=== PATIENT | male | born 1960 | race Caucasian/White ===

== ENCOUNTER → 2017-08-30 | Outpatient (CLI) | payer MEDICAID ==
[~2017-08-30] MED LIST: IOPAMIDOL (ISOVUE-300) 100 ML BTL ONE
== END ==
LOC: FIMAGING 15:43
PROVIDERS: ATTEND Nurse Practitioner
DX: R10.9 Unspecified abdominal pain (principal); B20 Human immunodeficiency virus [HIV] disease; R63.4 Abnormal weight loss; R93.3 Abnormal findings on diagnostic imaging of other parts of digestive tract
CPT/HCPCS: Q9967

== ENCOUNTER 2017-09-28 10:07 | Inpatient (IN) | payer MEDICAID ==
--- NOTE | 2017-09-28 10:14 | EDPHY ---
H & P Time Seen by Provider: 09/28/17 10:12 Constitutional: Initial Vital Signs Temperature (C) 36.3 C 09/28/17 10:11 Heart Rate 97 09/28/17 10:11 Respiratory Rate 18 09/28/17 10:11 Blood Pressure 96/82 H 09/28/17 10:11 O2 Sat (%) 95 09/28/17 10:11 O2 Delivery Mode Room Air Allergies/Adverse Reactions: No Known Allergies Allergy (Unverified 09/28/17 10:09) Home Medications: Medication Instructions Recorded Azithromycin 09/28/17 Bactrim DS 09/28/17 Biktarvy 50-200-25 mg Tablet 09/28/17 Descovy 200-25 mg Tablet 09/28/17 Tivicay 09/28/17 VALCYTE 09/28/17 Medical Decision Making - Diagnostics Imaging: Discussed imaging studies w/ call manager Radiologist, I viewed and interpreted images myself ED Course/Re-evaluation: CHIEF COMPLAINT: Abdominal pain HISTORY OF PRESENT ILLNESS: The patient is a 56 y/o male with a history of AIDS complaining of abdominal pain, constipation, and a decreased appetite. He was seen by Dr. 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 His last CD4 was 4 and his viral load was 500,000+. Dr. Kamara would like to have this patient admitted for failure to thrive. Denies chest pain, shortness of breath, numbness, paresthesias. REVIEW OF SYSTEMS: A 10 point review of systems was performed and is negative with the exception of the elements mentioned in the history of present illness. PHYSICAL EXAM: HR, BP, O2 Sat, RR. Temp noted General Appearance: Cachectic, emaciated, alert, well hydrated, appropriate, and non-toxic appearing. Head: Atraumatic without scalp tenderness or obvious injury Eyes: Pupils equal, round, reactive to light and accommodation, EOMI, no trauma , no injection. Ears: Clear bilaterally, no perforation, normal landmarks Nose: Atraumatic, no rhinorrhea, clear. Throat: There is no erythema or exudates, no lesions, normal tonsils, mucus membranes moist. Neck: Supple, nontender, no lymphadenopathy. Respiratory: No retractions, no distress, no wheezes, and no accessory muscle use. Lungs are clear to auscultation bilaterally. Cardiovascular: Regular rate and rhythm, no murmurs, rubs, or gallops. Bilateral carotid, radial, dorsalis pedis, and posterior tibial pulses intact. Good capillary refill all extremities. Gastrointestinal: Right lower quadrant abdominal tenderness to palpation. Abdomen is soft, non-distended, no masses, no rebound, no guarding, no peritoneal signs. Musculoskeletal: Normal active ROM of all extremities, atraumatic. Neurological: Alert, appropriate, and interactive. Non-focal neuro. Skin: No rashes, good turgor, no nodules on palpation. Past medical history: AIDS, HIV, abdominal cancer Past surgical history: Denies Family history: Denies Social history: Life partner at bedside, lives in [place], not employed DIAGNOSTICS/PROCEDURES/CRITICAL CARE TIME: Abdominopelvic CT: Terminal ileum looks less inflamed. More mesenteric lymph nodes. Appendix is normal. DIFFERENTIAL DIAGNOSIS: The differential diagnosis for the patient's abdominal pain included but was not limited to CMV ileitis, end-stage AIDS, appendicitis, cholecystitis, hernias , testicular torsion, gastritis, and urinary tract infection. MEDICAL DECISION MAKING: The patient is a 56 y/o male with a history of AIDS presenting with abdominal pain, constipation, and a decreased appetite. On exam he is cachectic, emaciated , and has right lower quadrant abdominal tenderness to palpation. Labs and abdominopelvic CT ordered. 1L IV NS, 4mg IV Zofran, and 1mg IV Dilaudid administered. 1010: Consulted with Dr. Kamara, infectious disease, regarding this patient. 1123: Patient's alk phos is 583, which is down from 936 on 09/21/17, one week ago. 1235: Spoke with hospitalist service, Dr. Arciniega accepts admission of this patient CMV, AIDS, and failure to thrive. 1240: Reassessed patient and discussed plan for admission; he is comfortable with this plan. 1319: Spoke with Dr. Walters, the patient's terminal ileum looks less inflamed, but there are more mesenteric lymph nodes. - Data Points Laboratory Results: Laboratory Results 09/28/17 10:30 09/28/17 10:30 09/28/17 09/28/17 09/28/17 10:30 10:30 10:30 WBC 3.70 10^3/uL L 10^3/uL (3.80-9.50) RBC 3.52 10^6/uL L 10^6/uL (4.40-6.38) Hgb 10.0 g/dL L g/dL (13.7-17.5) Hct 30.5 % L % (40.0-51.0) MCV 86.6 fL fL (81.5-99.8) MCH 28.4 pg pg (27.9-34.1) MCHC 32.8 g/dL g/dL (32.4-36.7) RDW 17.4 % H % (11.5-15.2) Plt Count 400 10^3/uL 10^3/uL (150-400) MPV 9.1 fL fL (8.7-11.7) Neut % (Auto) 86.3 % H % (39.3-74.2) Lymph % (Auto) 8.6 % L % (15.0-45.0) Kleberg % (Auto) 2.4 % L % (4.5-13.0) Eos % (Auto) 0.3 % L % (0.6-7.6) Baso % (Auto) 0.5 % % (0.3-1.7) Nucleat RBC Rel Count 0.0 % % (0.0-0.2) Absolute Neuts (auto) 3.19 10^3/uL 10^3/uL (1.70-6.50) Absolute Lymphs (auto) 0.32 10^3/uL L 10^3/uL (1.00-3.00) Absolute Monos (auto) 0.09 10^3/uL L 10^3/uL (0.30-0.80) Absolute Eos (auto) 0.01 10^3/uL L 10^3/uL (0.03-0.40) Absolute Basos (auto) 0.02 10^3/uL 10^3/uL (0.02-0.10) Absolute Nucleated RBC 0.00 10^3/uL 10^3/uL (0-0.01) Immature Gran % 1.9 % H % (0.0-1.1) Immature Gran # 0.07 10^3/uL 10^3/uL (0.00-0.10) RBC/WBC/PLT Morphology TNP Platelet Estimate TNP PT 14.3 SEC SEC (12.0-15.0) INR 1.09 (0.83-1.16) APTT 36.3 SEC SEC (23.0-38.0) Sodium 130 mEq/L L mEq/L (135-145) Potassium 4.4 mEq/L mEq/L (3.3-5.0) Chloride 97 mEq/L mEq/L (97-110) Carbon Dioxide 22 mEq/l mEq/l (22-31) Anion Gap 11 mEq/L mEq/L (8-16) BUN 19 mg/dL mg/dL (7-23) Creatinine 0.7 mg/dL mg/dL (0.7-1.3) Estimated GFR > 60 Glucose 76 mg/dL mg/dL (70-100) Calcium 8.6 mg/dL mg/dL (8.5-10.4) Total Bilirubin 0.5 mg/dL mg/dL (0.1-1.4) Conjugated Bilirubin 0.3 mg/dL mg/dL (0.0-0.5) Unconjugated Bilirubin 0.2 mg/dL mg/dL (0.0-1.1) AST 55 IU/L IU/L (17-59) ALT 57 IU/L IU/L (21-72) Alkaline Phosphatase 583 IU/L H IU/L (38-126) Total Protein 7.2 g/dL g/dL (6.3-8.2) Albumin 3.1 g/dL L g/dL (3.5-5.0) Amylase 71 IU/L IU/L (30-110) Lipase 185 IU/L IU/L (23-300) Medications Given: Discontinued Medications Diatrizoate Meglum/Diatrizoate Sod (Gastroview 66-10 Soln) 30 ml PO EDNOW ONE Stop: 09/28/17 10:20 Last Admin: 09/28/17 11:23 Dose: 30 ml Hydromorphone HCl (Dilaudid) 1 mg IVP EDNOW ONE Stop: 09/28/17 10:39 Last Admin: 09/28/17 10:39 Dose: 1 mg Sodium Chloride (Ns) 1,000 mls @ 0 mls/hr IV EDNOW ONE; Wide Open PRN Reason: Protocol Stop: 09/28/17 10:20 Last Admin: 09/28/17 10:37 Dose: 1,000 mls Ondansetron HCl (Zofran) 4 mg IVP EDNOW ONE Stop: 09/28/17 10:20 Last Admin: 09/28/17 10:37 Dose: 4 mg Departure - Departure Disposition: [facility] In[facility] Acute Clinical Impression: Failure to thrive in adult, AIDS Abdominal pain Qualifiers: Abdominal location: right lower quadrant Qualified Code(s): R10.31 - Right lower quadrant pain CMV (cytomegalovirus) Qualifiers: Cytomegaloviral disease type: other disease Qualified Code(s): B25.8 - Other cytomegaloviral diseases Condition: Fair Referrals: Marley Kamara MD [Primary Care Provider] - As per Instructions Report Scribed for: Morgan Turpin Report Scribed by: Shahnaz Lindo Date of Report: 09/28/17 Time of Report: 10:17
[2017-09-28] MEDS ORDERED: NS 1,000 ML IV ONE (10:19)
[2017-09-28] MEDS ORDERED: ONDANSETRON 4 MG/2 ML VIAL IVP ONE (10:19)
[2017-09-28] MEDS ORDERED: GASTROVIEW 30 ML UNIT PO ONE (10:19)
[2017-09-28] MEDS ORDERED: HYDROmorphONE/DILAUDID 1 MG/ML INJ ONE (10:26)
[2017-09-28] MEDS ORDERED: HYDROmorphONE/DILAUDID 1 MG/ML INJ IVP ONE (10:38)
[2017-09-28 10:48] LABS: PLATELET COUNT 400 10^3/uL (150-400)
[2017-09-28 10:56] LABS: INR 1.09 (0.83-1.16); PROTIME(PATIENT) 14.3 SEC (12.0-15.0)
[2017-09-28] MEDS ORDERED: IOPAMIDOL (ISOVUE-300) 100 ML BTL ONE (12:46)
[2017-09-28] MEDS ORDERED: NS 1,000 ML IV SCH (14:15)
[2017-09-28] MEDS ORDERED: ONDANSETRON DISINTEGRATING 4 MG TAB PO PRN (14:15)
[2017-09-28] MEDS ORDERED: ACETAMINOPHEN 325 MG TAB PO PRN (14:16)
[2017-09-28] MEDS ORDERED: CARBOXYMETHYLCELLULOSE 1% 0.4 ML DROPERETTE EACHEYE PRN (14:17)
[2017-09-28] MEDS ORDERED: NON-FORMULARY NEW DRUG (Emtricitabine/Tenofov Alafenam [Descovy 200-25 Mg Tablet] 1 EACH) PO SCH (14:30)
[2017-09-28] MEDS ORDERED: NON-FORMULARY NEW DRUG (Dolutegravir Sodium [Tivicay] 50 MG) PO SCH (14:30)
[2017-09-28] MEDS ORDERED: [UNRECOGNIZED DRUG - OTHER] PO SCH (14:30)
--- NOTE | 2017-09-28 15:04 | GHP ---
[f rep st] HISTORY AND PHYSICAL DATE OF ADMISSION: 09/28/2017 CHIEF COMPLAINT: Sent in by infectious disease doctor. HISTORY OF PRESENT ILLNESS: A 56-year-old man who with a recent diagnosis of AIDS, as well as CMV il eitis. He was diagnosed after having about a 6 months history of significant abdominal pain. On chevy gnosis, his CD4 count was 4 and his viral load was over 500,000. Given his abdominal pain, he underw ent a colonoscopy. He had pathology proven CMV colitis. He was started on Valcyte. He tells me he has had significant severe ongoing abdominal pain that is only now recently relieved on IV Dilaudid. He has lost about 40 pounds recently. He has had some fevers. He has no other neurologic symptoms, including numbness or focal weakness. He has been intermittently constipated and then had diarrhea. PAST MEDICAL/SURGICAL HISTORY: 1. HIV/AIDS. 2. CMV colitis. MEDICATIONS: Please see medication reconciliation. ALLERGIES: No known drug allergies. SOCIAL HISTORY: He is lives with his partner in [place]. He has never used IV drugs. FAMILY HISTORY: His father had pancreatic cancer. REVIEW OF SYSTEMS: A 10-point review of systems is conducted and is negative, except per HPI. PHYSICAL EXAMINATION: VITAL SIGNS: Blood pressure is 98/65, heart rate 85, respiration rate 16, sat urating 99% on room air, temperature 36.3. GENERAL: The patient is a pleasant man who is resting co mfortably, in no acute distress. HEENT: Shows him to be normocephalic, atraumatic. He has temporal wasting. CARDIOVASCULAR: Shows him to be a regular rate and rhythm. No murmurs, rubs, or gallops. PULMONARY: Shows lungs clear to auscultation bilaterally. ABDOMEN: Soft. He has normal bowel so unds. He is at this point mildly tender to palpation with no guarding or rebound. He is most tender to palpation of the right lower quadrant. SKIN: No rash. : Shows no Demarco. NEUROLOGIC: Shows him to be alert and oriented x3. He has a nonfocal neurologic exam. PSYCHIATRIC: Shows him to hav e a normal mood and affect. LABORATORY DATA: White count is 3.7, hemoglobin 10, platelets 400. INR is 1.0. Sodium is 130, amberly line phosphatase is 583. DATA: 1. Discussed this with Dr. Kamara. Will admit to med/surg. 2. Abdominal CT, which I reviewed shows slight improvement in terminal ileitis. He does have signif icant mesenteric and periaortic lymphadenopathy. IMPRESSION/PLAN: 1. New diagnosis of acquired immune deficiency syndrome with cytomegalovirus colitis/terminal ileiti s: He has lost significant amount of weight. He is not able to take care of himself very well at [facility]. Dr. Kamara will consult. He is getting Valcyte 900 mg p.o. twice daily. We will control his filiberto n with Dilaudid intravenous, as well as p.o. options. We will give him a second liter of normal sali ne. We will follow very closely for improvement on this regimen. 2. Acquired immune deficiency syndrome/human immunodeficiency virus: He is currently on antiretrovi rals by Dr. Kamara. Given his low CD4 count, he is on Bactrim. Dr. Kamara has ordered a screening MRI of his brain. She has drawn any other cultures as well. 3. Retroperitoneal and periaortic lymphadenopathy: Differential is broad in the patient who is quit e amino compromise. Agree with serologies as drawn by Dr. Kamara. 4. Failure to thrive: Due to the above. Not safe to take care of himself at home at this point. 5. Venous thromboembolism risk: He is moderate. I have written for Lovenox. /[id number]/MODL
[2017-09-28] MEDS ORDERED: TENOFOV ALAFENAM PO SCH (15:30)
[2017-09-28] MEDS ORDERED: [UNRECOGNIZED DRUG - OTHER] PO SCH (15:30)
[2017-09-28] MEDS ORDERED: EMTRICITABINE PO SCH (15:30)
[2017-09-28] MEDS ORDERED: (Dolutegravir Sodium [Tivicay] 50 MG) PO SCH (15:30)
--- NOTE | 2017-09-28 15:39 | GCON ---
[f rep st] CONSULTATION INFECTIOUS DISEASE CONSULT DATE OF CONSULTATION: 09/28/2017 REFERRING PHYSICIAN: Terence Arciniega MD REASON FOR CONSULT: To assist in the management of this 56-year-old patient well known to our clinic with end-stage AIDS and CMV terminal ileitis, admitted for failure to thrive. HISTORY OF PRESENT ILLNESS: Mr. Montanez is a 56-year-old male whose previous medical history is notable for the followin. End-stage AIDS: The patient presented to our outpatient clinic at the end of July with a recent diagnosis of HIV. His T-cell count was 4 (2%) with a viral load of 516,000 copies. Unfortunately, the patient had no health insurance of any sort, and it took almost a month for him to finally get Medicaid so we could proceed with an evaluation and workup. At the time, the patient was complaining of significant abdominal pain. Ultimately, he was diagnosed with CMV terminal ileitis. Please see below. 2. CMV terminal ileitis: The patient had a CT scan of his abdomen and pelvis in late August that showed terminal ileitis and inflammation of the terminal ileum and cecum. He underwent a colonoscopy on 09/02/2017 that showed multiple ulcers with heaped up borders. Pathology was consistent with CMV, and the AFB stain was negative for mycobacterium. There were no granulomas seen. HSV stain was also negative. The patient prior to the colonoscopy, out of high clinical suspicion, was started on empiric valganciclovir 900 mg twice daily for treatment, as well as antiretrovirals in the form of Descovy and dolutegravir. 3. Tobacco abuse. 4. Anemia: [place] secondary to anemia of chronic disease. 5. Chronic hepatitis B: 6. The patient had a low level viremia with 60 copies and 28 copies. This was discussed with a hepatitis B expert at [facility], who felt this represented active disease. The patient is on treatment in the form of Descovy. His recent hepatitis B viral load on therapy was undetectable. In so far as his present issues are concerned, the patient has had a hanna road over the past few weeks. The patient lives in [place] with his partner, who takes care of him. His partner works multimedia producer, and has really been unable to care for him of late. The patient has multiple needs, as he cannot make his own meals, and unfortunately he has been losing weight recently. He denies fevers, shaking chills, nausea or vomiting. He has been constipated. He has been anorectic as well. He also complains of persistent abdominal discomfort in his lower abdomen, both sides, both sides. Again, the patient denies drenching night sweats, or fever. The patient presented to our outpatient clinic this morning with failure to thrive, and his partner said "I just can't take care of him right now." Because of this, the patient was brought to the emergency room for further evaluation and treatment of failure to thrive. In the emergency room, the patient's labs actually showed improvement, with a CBC showing a white count of 3.7, stable hematocrit of 30, and platelet count of 400. His CMP showed stable hyponatremia with a sodium of 130, stable kidney function and liver function tests showing an improvement in recently elevated alkaline phosphatase. His albumin had also improved from 2.8 to 3.1. His alkaline phosphatase was 926 last week, presently is 583. Also of note, the patient's immune system is responding to the antiretrovirals, with a T-cell count last week of 32, but percentage that has had a significant increase, from 2% to 20%. His viral load also plummeted from over 500,000 copies to 6027 copies. PREVIOUS MEDICAL HISTORY: As outlined above. ALLERGIES: No known drug allergies. MEDICATIONS: Presently include: 1. Valganciclovir 450 mg tablet 2 tabs p.o. twice daily. The patient has been on this now for approximately 4 weeks. 2. Descovy 1 tab p.o. daily. 3. Dolutegravir 50 mg daily. 4. Bactrim DS 1 tab p.o. every Wednesday, Wednesday, Wednesday. 5. I believe he was taking azithromycin 600 mg 2 tabs p.o. weekly. SOCIAL HISTORY: The patient has a very supportive . He is a heavy smoker. No alcohol or illicit substances. Occasional medical marijuana in the form of edibles. They live in [place]. He is presently unemployed, but previously worked in a hotel. FAMILY HISTORY: Unremarkable. PHYSICAL EXAM: T-current is 36.3, heart rate of 85, blood pressure 98/65, 99% on room air. GENERAL: Cachectic male, nontoxic, lying in bed, no apparent distress. Looks tired. HEENT: Atraumatic, normocephalic. Temporal wasting bilaterally. Pupils equal, round, reactive to light. Extraocular movements are intact. No conjunctival injection. No icterus or petechiae. Mucous membranes moist. No oral lesions noted with the exception of very mild thrush in his buccal mucosa, posteriorly. No other oral lesions noted. Dentition in fair repair. No cervical or supraclavicular adenopathy. CARDIOVASCULAR: S1, S2. No rubs, gallops, or murmurs. LUNGS: Clear to auscultation bilaterally with no rales, rhonchi, or wheezes. ABDOMEN: Scaphoid. Hypoactive bowel sounds. Tenderness to palpation diffusely, but most prominent in the lower quadrants, right and left. EXTREMITIES: No evidence of arthritis. No clubbing , cyanosis, or edema. He is well perfused. SKIN: No obvious rashes or lesions noted. NEUROLOGIC: He is alert and oriented x3. He is moving all 4 extremities. No sensory deficits. LABORATORY DATA: As outlined above. MICROBIOLOGIC DATA: AFB blood culture on August 09 negative. Urine histoplasmosis antigen negative. Serum cryptococcal antigen negative. Coccidioides antibody negative on August 09. CMV PCR positive at 14,700 copies on August 09. IMAGING DATA: CT scan of the abdomen and pelvis done today compared with CT scan of the abdomen and pelvis done in August shows ongoing inflammation of the terminal ileum, but no evidence of perforation. There are multiple new retroperitoneal, paraaortic, and mesenteric lymph nodes that are markedly enlarged since the previous study. The biliary system looks fine. IMPRESSION: 56-year-old male with end-stage AIDS and recent diagnosis of cytomegalovirus terminal ileitis, now admitted for failure to thrive. Notably, Cipriano needs more care and attention (meals made for him, help with ADL's) that his partner just cannot provide at this time. The patient does have new and extensive mesenteric and paraaortic adenopathy on CT scan compared with 1 month prior, but I am hoping this is not a harbinger for a new opportunistic infection, such as JOAN. Lymphoma seems less likely, but is still plausible. Differential diagnosis also includes immune reconstitution inflammatory syndrome from recent initiation of antiretrovirals. Thankfully, the patient is afebrile and clinically stable. Please see below for plan. PLAN: 1. HIV/AIDS: Continue antiretrovirals in the form of Descovy and Dolutegravir. These medications should be given together and cation binders such as Tums, Gaviscon, and multivitamins should be avoided if possible. If Tums is necessary, it should be given either 2 hours before or 6 hours after his antiretrovirals. Recent immunologic parameters showed significant drop in viral load and increase in Cd4 percentage. 2. CMV terminal ileitis without evidence of retinitis: Repeat CMV PCR has been ordered. Continue Valcyte 900 mg p.o. twice daily for now. Bone marrow appears stable on this medication. 3. Chronic hepatitis B: On therapy in the form of Descovy. Follow up HBV DNA negative on treatment. 4. Prophylaxis: Hold Azithromycin for now given concern for possible dMAC. Repeat JOAN blood cx' s have been sent. Continue Bactrim DS daily for PJP prophylaxis. Will follow potassium on Bactrim, as the patient recently had an episode of hyperkalemia that was felt possibly related to Bactrim. 5. Weakness/failure to thrive: Obtain nutrition and PT evaluation. The patient may need to be placed in a senior care facility such as [facility] temporarily until he can get his strength back and the patient is agreeable to this. We will ask Social Work to evaluate. Will also order head MRI for completeness sake, given end-stage AIDS and reported question of confusion by his partner in the past, although the patient is absolutely not confused presently. 6. Hyponatremia: Suspect hypovolemic hyponatremia. Appreciate hospitalist's assistance. Check am cortisol. 7. Intra-abdominal LAD: Repeat serum CRAG, urine histoplasmosis antigen, cocci ab and MAC blood cx's. Continue to follow. Hopefully will not require biopsy of these nodes,but still may. 8. Elevated alkaline phosphatase: This is improving. MAC remains a concern in the back of my mind as outlined above, particularly with the extensive abdominal lymphadenopathy. If the patient becomes febrile or has worsening abdominal discomfort, consider abdominal lymph node biopsy. Blood cultures for JOAN have been sent. Doubt AIDS cholangiopathy in the setting of normal-appearing biliary ducts. Thank you very much for consulting Infectious Disease. We will continue to follow this patient with you. /[id number]/MODL MTDD
--- NOTE | 2017-09-28 15:46 | PDMN ---
Medical Necessity Medical necessity: est los>2mn for ongoing abd pain r/t CMV colitis, retroperitoneal & periaortic lymphadenopathy and FTT; admit for pain control w/ IV dilaudid, ID consult; recent dx AIDS/HIV and 40 lb wt loss; per order and H& P 09/28/17
--- NOTE | 2017-09-28 15:50 | ASMTCASEMG ---
Living Arrangements What is your living Answers: With Partner arrangement? Who do you live with? Type Of Residence What kind of residence do Answers: House you live in? Discharge Plan Comments Coordination Status Comments Notes: Pt is a 56 y/o man sent in by an infectious disease doctor. Pt was recently diagnosis with AIDS. PT echols been ordered and awaiting recommendations. Needs are TBD at this time. CM to follow. Plan: TBD Date Signed: 09/28/2017 03:50 PM Electronically Signed By:JOHN Wen
[2017-09-28] MEDS: TENOFOV ALAFENAM PO SCH (16:53)
[2017-09-28] MEDS: EMTRICITABINE PO SCH (16:53)
[2017-09-28] MEDS: (Dolutegravir Sodium [Tivicay] 50 MG) PO SCH (16:54)
[2017-09-28] MEDS ORDERED: PNEUMOCOCCAL 0.5ML VACCINE VIAL IM ONE (17:00)
[2017-09-28] MEDS: NYSTATIN SUSP 500000 UNIT/5 ML UDCUP PO SCH ×2 (17:21→20:37)
[2017-09-28] MEDS: HYDROmorphONE/DILAUDID 1 MG/ML INJ IVP PRN (18:36)
[2017-09-29] MEDS: NYSTATIN SUSP 500000 UNIT/5 ML UDCUP PO SCH ×4 (05:50→20:21)
[2017-09-29] MEDS ORDERED: GADOBUTROL 10 ML VIAL IVP ONE (07:00)
[2017-09-29] MEDS ORDERED: ENOXAPARIN 40 MG/0.4 ML SYR SC SCH (09:00)
[2017-09-29] MEDS: HYDROCODONE/APAP 5/325 TAB PO PRN ×2 (09:05→15:37)
[2017-09-29] MEDS: VITAMIN B COMPLEX 1 EA CAP/TAB PO SCH (09:06)
[2017-09-29] MEDS: CHOLECALCIFEROL VIT D3 2,000 UNITS TAB/CAP PO SCH (09:06)
[2017-09-29] MEDS: SULFAMETHOX/TMP 800/160 MG 1 TAB PO SCH (09:06)
[2017-09-29] MEDS: (Dolutegravir Sodium [Tivicay] 50 MG) PO SCH (09:07)
[2017-09-29] MEDS: TENOFOV ALAFENAM PO SCH (09:07)
[2017-09-29] MEDS: EMTRICITABINE PO SCH (09:07)
--- NOTE | 2017-09-29 11:56 | PCMIDPN ---
Assessment/Plan: #CMV terminal ileitis proven on colonoscopy --CMV PCR pending --continue valganciclovir : ANC okay @6300, Cr okay #AIDS: big jump in CD4 % since started ARV --Continue Descovy, dolutegravir, big jump in CD4 % --on ppx with Bactrim --holding azithro for now due to concern of dMAC # Fever, mesenteric LAD: cocci, histo serologies, AFB blood cultures pending. Also could consider lymphoma or IRIS to CMV or undiagnosed dMAC # c/o Melena, dysphagia, drop in Hgb: hospitalist to call GI, query upper tract disease # Thrush: on PO nystatin s/s # Massive weight loss: likely multifactorial, CMV, AIDS. Also concern for upper GI track disease as above # HypoNa: hospitalist to manage, poor PO intake of food, drinks a lot of water # Memory difficulties: MRI brain without focal abn # HBV: on TAF/FTC (Descovy), VL undetectable now Medications 3 Generic Name Dose Route Start Last Admin Trade Name Freq PRN Reason Stop Dose Admin Trimethoprim/Sulfamethoxazole 1 ea 09/29/17 09:00 09/29/17 09:06 Bactrim Ds PO 10/29/17 08:59 1 ea DAILY THADDEUS Protocol Valganciclovir 900 mg 09/28/17 21:00 09/29/17 09:07 Valcyte PO 10/28/17 20:59 900 mg BID THADDEUS Subjective: c/o black sticky stools but has relatively infrequent BMs RLQ abdominal pain stable c/o "orange" urine Objective: Vital Signs Temp Pulse Resp BP Pulse Ox 36.6 C 80 16 102/68 98 09/29/17 11:01 09/29/17 11:01 09/29/17 11:01 09/29/17 11:01 09/29/17 11:01 Microbiology 09/28/17 17:25 Mycobacterial Smear (FRANK) - Final Blood 09/28/17 09/29/17 09/30/17 05:59 05:59 05:59 Intake Total 1200 780 Output Total 745 100 Balance 455 680 Laboratory Tests 09/28/17 09/28/17 09/29/17 10:30 10:30 12:15 WBC 3.70 L 7.61 Hct 30.5 L 25.1 L Plt Count 400 381 Sodium 130 L Creatinine 09/29/17 12:20 WBC Hct Plt Count Sodium 129 L Creatinine 0.7 - Physical Exam General Appearance: cachetic EENT: pale conjunctiva, No scleral icterus, No thrush Respiratory: chest non-tender, No accessory muscle use Cardiac/Chest: regular rate, rhythm Extremities: other (muscle wasting), No pedal edema Abdomen: normal bowel sounds, non-tender, soft, other (mild discomfort to deep palpation RLQ) Skin: No rash Neuro/Psych: alert, normal mood/affect, oriented x 3 - Time Spent With Patient Time Spent with Patient: greater than 35 minutes (care coordinated with Dr. Arciniega and nursing) Time Spent with Patient: Greater than 35 minutes spent on this patients care, greater than 50% of time spent counseling, educating, and coordinating care regarding the above mentioned plan. ICD10 Worksheet Patient Problems: Problems Problem Status Onset AIDS Acute Abdominal pain Acute CMV (cytomegalovirus) Acute Failure to thrive in adult Acute
--- NOTE | 2017-09-29 12:00 | HOSPPROG ---
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 # SPCM - cont nutrition support # deconditioning - PT/OT Subjective: feels stronger today; working with PT and OT Objective: Vital Signs Temp Pulse Resp BP Pulse Ox 36.6 C 80 16 102/68 98 09/29/17 11:01 09/29/17 11:01 09/29/17 11:01 09/29/17 11:01 09/29/17 11:01 Microbiology 09/28/17 17:25 Mycobacterial Smear (FRANK) - Final Blood 09/28/17 09/29/17 09/30/17 05:59 05:59 05:59 Intake Total 1200 780 Output Total 745 100 Balance 455 680 PT 14.3 SEC (12.0-15.0) 09/28/17 10:30 INR 1.09 (0.83-1.16) 09/28/17 10:30 high risk with AIDS and fever - Physical Exam Constitutional: cachectic Cardiovascular: regular rate and rhythym, no murmur, rub, or gallop Respiratory: no respiratory distress, no rales or rhonchi, clear to auscultation Gastrointestinal: normoactive bowel sounds, soft, non-tender abdomen ICD10 Worksheet Patient Problems: Problems Problem Status Onset Abdominal pain Acute Failure to thrive in adult Acute AIDS Acute CMV (cytomegalovirus) Acute
[2017-09-29] MEDS ORDERED: SENNOSIDES/DOCUSATE SODIUM TAB PO PRN (12:13)
[2017-09-29] MEDS: DOCUSATE SODIUM 100 MG CAP PO SCH ×2 (12:26→20:15)
[2017-09-29 12:48] LABS: PLATELET COUNT 381 10^3/uL (150-400)
[2017-09-29] MEDS: PANTOPRAZOLE SODIUM 40 MG VIAL IVP SCH ×2 (14:11→20:21)
[2017-09-29] MEDS: NS 1,000 ML IV SCH ×2 (14:11→15:39)
[2017-09-29] MEDS: HYDROmorphONE/DILAUDID 1 MG/ML INJ IVP PRN (16:42)
--- NOTE | 2017-09-29 16:49 | ASMTCMCOM ---
CM Note CM Note Notes: CM spoke w/pt re; dc poc. PT/OT recommend home care, pt and partner live in [facility], CM will try to find hc agency in his area. But pt also states he and partner Niles would like to move to [place]. Pt expresses interest in applying for dissability, CM will do some research, maybe call someone at the [facility]. DC Plan: Home Care Date Signed: 09/29/2017 04:48 PM Electronically Signed By:Genoveva Braga RN
[2017-09-30] MEDS: ACETAMINOPHEN 500 MG TAB PO PRN (01:52)
[2017-09-30] MEDS: NS 1,000 ML IV SCH ×2 (03:19→06:26)
[2017-09-30] MEDS ORDERED: NS BOLUS 500 ML IV ONE ×3 (04:00→06:00)
[2017-09-30 05:55] LABS: PLATELET COUNT 362 10^3/uL (150-400)
[2017-09-30] MEDS: NYSTATIN SUSP 500000 UNIT/5 ML UDCUP PO SCH ×4 (06:29→21:09)
--- NOTE | 2017-09-30 06:52 | PCMIDPN ---
Assessment/Plan: 56 yo male with AIDS, terminal ileitis who was febrile and hypotensive overnight. This is not entirely new, but slightly worse overnight. Suspect clinical picture is multifactorial as clinically he was still volume depleted yesterday, possibility of GI bleed and likely yet undiagnosed OI such as dMAC, but SBP 70s overnight, fairly impressive increase in his wbc, persistent hypoNa on chemistry - all giving me some concern more acute process. Blood cultures have been drawn, patient will be transferred to ICU/stepdown for BP management. Finally, due to AIDS and unclear picture, reasonable to start broad spectrum coverage to include PsA in the meantime - I am not clear of the source at this point. Zosyn 4.5gm IV q6 w first dose now. Case discussed with hospitalist patient w/o localizing symptoms. Dr Kamara to see patient this AM Objective: Vital Signs Temp Pulse Resp BP Pulse Ox 37.1 C 89 16 78/56 L 96 09/30/17 03:08 09/30/17 04:36 09/30/17 04:36 09/30/17 05:18 09/30/17 04:36 Microbiology 09/28/17 17:25 Mycobacterial Smear (FRANK) - Final Blood Laboratory Results 09/30/17 04:56 09/30/17 04:56 09/29/17 09/30/17 10/01/17 05:59 05:59 05:59 Intake Total 1200 1340 Output Total 745 600 Balance 455 740 ICD10 Worksheet Patient Problems: Problems Problem Status Onset AIDS Acute Abdominal pain Acute CMV (cytomegalovirus) Acute Failure to thrive in adult Acute
--- NOTE | 2017-09-30 06:57 | HOSPPROG ---
Hospitalist Progress Note Assessment/Plan: Patient noted to have T of >39 overnight along w/ HR in the 130s and decreased sensorium. These symptoms resolved with APAP 1 g. Over the next few hours, however, patient developed hypotension. He is asymptomatic currently w/ HR in 70 -80 range, saturating near 100% on RA; however, SBP remains in the 70-80 range despite 2 L IVF. I ordered blood cultures, procalcitonin, and lactic acid. I discussed case with Dr. Garrett from [place] and will start antibiotic coverage and transfer the patient to SDU for close monitoring. I personally spent 30 minutes of critical care time evaluating patient, coordinating care, and discussing with care team. Objective: Vital Signs Temp Pulse Resp BP Pulse Ox 37.1 C 89 16 78/56 L 96 09/30/17 03:08 09/30/17 04:36 09/30/17 04:36 09/30/17 05:18 09/30/17 04:36 Microbiology 09/28/17 17:25 Mycobacterial Smear (FRANK) - Final Blood Laboratory Results 09/30/17 04:56 09/30/17 04:56 09/29/17 09/30/17 10/01/17 05:59 05:59 05:59 Intake Total 1200 1340 Output Total 745 600 Balance 455 740 PT 14.3 SEC (12.0-15.0) 09/28/17 10:30 INR 1.09 (0.83-1.16) 09/28/17 10:30 - Physical Exam Constitutional: no apparent distress, not in pain, chronically ill appearing Eyes: PERRL, EOMI Ears, Nose, Mouth, Throat: moist mucous membranes, no oral mucosal ulcers Cardiovascular: regular rate and rhythym, no murmur, rub, or gallop Respiratory: no respiratory distress, clear to auscultation Gastrointestinal: normoactive bowel sounds, soft, non-tender abdomen Skin: warm, normal color Musculoskeletal: full muscle strength, no muscle tenderness Neurologic: AAOx3, CN II-XII Intact Psychiatric: interacting appropriately, not anxious ICD10 Worksheet Patient Problems: Problems Problem Status Onset AIDS Acute Abdominal pain Acute CMV (cytomegalovirus) Acute Failure to thrive in adult Acute
[2017-09-30] MEDS: PIPERACILLIN/TAZO 4.5 GM/DEX 100 ML IV SCH ×4 (07:06→23:28)
[2017-09-30] MEDS ORDERED: NS 500 ML IV ONE (08:00)
--- NOTE | 2017-09-30 09:05 | PCMIDPN ---
Assessment/Plan: 1. Fever/hypotension: Agree with Zosyn for now pending blood culture results. 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 Apparently, the patient has been taking a subtherapeutic dose of valganciclovir, and has been taking 450 mg twice a day, when he should be taking 900 mg twice daily. Serum cortisol was fine. Agree with plans for EGD in the setting of melenic stool. Please see below. 2. Melenic stool: Differential diagnosis includes upper GI bleed from progressive terminal ileitis versus new upper GI process. Of note, the patient was taking aspirin prior to admission . EGD today. 3. 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 CMV PCR pending. 4. Bulky jermaine aortic/retroperitoneal adenopathy: Suspect the patient ultimately will need 1 of these nodes sampled. They are in a difficult place to access in the setting of being retroperitoneal, but when I spoke to Dr. Pardo 2 days ago, he felt that they could get a core sample of 1 of the periaortic nodes. This may be the best we can do. Lymph nodes are concerning for disseminated MAC. Lymphoma seems less likely. Diagnosis of exclusion is immune reconstitution secondary to CMV. 5. Elevated alkaline phosphatase: Concerning for disseminated MAC. No evidence of AIDS cholangiopathy on CT scan. Alkaline phosphatase is going down., please see above regarding plan. 6. HIV/aids: Continue Descovy and Dolutegravir as is. MRI of the brain negative. 7. Prophylaxis: Continue Bactrim DS daily. Potassium stable. Old azithromycin out of concern for possible disseminated MAC. Over 35 min was spent with this patient this morning. 09/30/17 09:10 Subjective: Events of last night/early this morning noted. Patient was hypotensive and tachycardic, with a fever of 39.8. The patient had also been febrile the day before. He was given fluids, and started on Zosyn, pseudomonal dosing. Patient is presently in the intensive care unit, and tells me "I am a mess." In the same breath, he tells me that he feels fine, and does not understand all the fuss. He denies any rigors. Still has some abdominal discomfort. Also apparently has been noted to have a melenic stool. When I asked him more about that, he told me he has been having melena for the past few months. He did not tell us this. Labs are concerning for leukocytosis and progressive drop in hematocrit (suspect patient was hemoconcentrated on admission with falsely elevated hematocrit). Please see plan below. Objective: T-max 39.8 degrees Zosyn 4.5 g IV q.6 hours day 0 Descovy/Dolutegravir Valcyte 900 mg twice daily Bactrim DS daily Vital Signs Temp Pulse Resp BP Pulse Ox 36.5 C 80 16 83/52 L 95 09/30/17 07:11 09/30/17 07:11 09/30/17 07:11 09/30/17 07:11 09/30/17 07:11 Microbiology 09/28/17 17:25 Mycobacterial Smear (FARNK) - Final Blood Laboratory Results 09/30/17 04:56 09/30/17 04:56 09/29/17 09/30/17 10/01/17 05:59 05:59 05:59 Intake Total 1200 1340 Output Total 745 600 Balance 455 740 Blood culture for AFB pending Blood cultures drawn this morning pending CMV PCR pending Serum cryptococcal antigen negative Coccidioides antibody pending Urine histoplasmosis antigen pending A.m. Cortisol 14.2 yesterday, appropriate. - Physical Exam General Appearance: no apparent distress, cachetic EENT: pharynx normal, No thrush Respiratory: lungs clear Cardiac/Chest: regular rate, rhythm, No tachycardia Abdomen: other (Scaphoid. No tenderness to my exam this morning when the patient was distracted.) Skin: No rash Neuro/Psych: oriented x 3 ICD10 Worksheet Patient Problems: Problems Problem Status Onset AIDS Acute Abdominal pain Acute CMV (cytomegalovirus) Acute Failure to thrive in adult Acute
[2017-09-30] MEDS: CHOLECALCIFEROL VIT D3 2,000 UNITS TAB/CAP PO SCH (10:08)
[2017-09-30] MEDS: DOCUSATE SODIUM 100 MG CAP PO SCH ×2 (10:08→21:09)
[2017-09-30] MEDS: (Dolutegravir Sodium [Tivicay] 50 MG) PO SCH (10:08)
[2017-09-30] MEDS: TENOFOV ALAFENAM PO SCH (10:09)
[2017-09-30] MEDS: VITAMIN B COMPLEX 1 EA CAP/TAB PO SCH (10:09)
[2017-09-30] MEDS: PANTOPRAZOLE SODIUM 40 MG VIAL IVP SCH ×2 (10:09→21:09)
[2017-09-30] MEDS: EMTRICITABINE PO SCH (10:09)
[2017-09-30] MEDS: SULFAMETHOX/TMP 800/160 MG 1 TAB PO SCH (11:26)
--- NOTE | 2017-09-30 14:44 | PDANEPAE ---
ANE History of Present Illness 56 yo for egd ANE Past Medical History - Pulmonary History Hx Oxygen in Use at Home: No Hx Sleep Apnea: No Sleep Apnea Screening Result - Last Documented: Positive - Endocrine History Hx Diabetes: No ANE Review of Systems Review of Systems: - Exercise capacity METS (RN): 3 METS ANE Patient History - Allergies Allergies/Adverse Reactions: No Known Allergies Allergy (Unverified 09/28/17 10:09) - Home Medications Home Medications: Azithromycin 1,200 mg PO MO 09/28/17 [Last Taken 09/27/17] Bictegrav/Emtricit/Tenofov Ala [Biktarvy 50-200-25 mg Tablet] 1 each PO DAILY [Last Taken 09/27/17] Carboxymethylcellulose 1% [Refresh Celluvisc (*)] 1 drop EACHEYE DAILY PRN 09/28 [Last Taken Unknown] Cholecalciferol Vit D3 [Vitamin D3 2000 units tab (OTC)] 2,000 units PO DAILY [Last Taken 09/28/17] Dolutegravir Sodium [Tivicay] 50 mg PO DAILY 09/28/17 [Last Taken 09/27/17] Emtricitabine/Tenofov Alafenam [Descovy 200-25 mg Tablet] 1 each PO DAILY [Last Taken 09/27/17] Sulfamethox/Tmp 800/160 mg [Bactrim Ds] 1 tab PO DAILY 09/28/17 [Last Taken ] Vitamin B Complex [Vitamin B Complex (OTC)] 1 each PO DAILY 09/28/17 [Last Taken 09/27/17] valGANciclovir [ValCYTE] 900 mg PO BIDMEAL 09/28/17 [Last Taken 09/27/17 18:00] - NPO status NPO Since - Liquids (Date): 09/30/17 NPO Since - Liquids (Time): 00:00 NPO Since - Solids (Date): 09/30/17 NPO Since - Solids (Time): 00:00 - Smoking Hx Smoking Status: Never smoked ANE Labs/Vital Signs - Labs Result Diagrams: 09/30/17 04:56 09/30/17 04:56 - Vital Signs Blood Pressure: 89/62 Heart Rate: 80 Respiratory Rate: 16 O2 Sat (%): 98 Height: 5 ft 9 in Weight: 53.07 kg ANE Physical Exam - Airway Mallampati Score: Class 2 Mouth exam: normal dental/mouth exam - Pulmonary Pulmonary: no respiratory distress - Cardiovascular Cardiovascular: regular rate and rhythym - ASA Status ASA Status: III ANE Anesthesia Plan Anesthesia Plan: GA with mask
[2017-09-30] MEDS ORDERED: PROPOFOL 200 MG/20 ML VIAL ONE (14:45)
--- NOTE | 2017-09-30 15:09 | HOSPPROG ---
Hospitalist Progress Note Assessment/Plan: 56 yo M with new dx of AIDS admitted with CMV ileitis # CMV ileitis - cont valcyte - ID following # melena: with plans for egd today # acute on chronic anemia: with acute blood loss contributing as well as likely anemia of chronic disease, will tx 2 units prbc # HIV/AIDS - cont anti-retrovirals, bactrim, appreciate ID consult, MRI negative # retroperitoneal and jermaine-aortic LAD - could be reactive from CMV ileitis, or other opportunistic infection, has been sampled, causing abdominal pain # fever - IRIS vs disseminated MAC? # SPCM - cont nutrition support # deconditioning - PT/OT Patient new to my care. Old records reviewed/summarized as above. Care plan reviewed with Dr. Andrade and multidisciplinary team on rounds. Subjective: no acute overnight events Objective: Vital Signs Temp Pulse Resp BP Pulse Ox 36.9 C 80 16 89/62 L 98 09/30/17 14:23 09/30/17 14:44 09/30/17 14:44 09/30/17 14:44 09/30/17 14:44 Microbiology 09/28/17 17:25 Mycobacterial Smear (FRANK) - Final Blood Laboratory Results 09/30/17 04:56 09/30/17 04:56 09/29/17 09/30/17 10/01/17 05:59 05:59 05:59 Intake Total 1200 1340 Output Total 745 600 Balance 455 740 PT 14.3 SEC (12.0-15.0) 09/28/17 10:30 INR 1.09 (0.83-1.16) 09/28/17 10:30 awake alert cachectic anicteric op clear rrr no mrg cta b soft nt nd no cce warm dry well perfused oriented appropriate - Time Spent With Patient Time Spent with Patient: greater than 35 minutes Time Spent with Patient: Greater than 35 minutes spent on this patients care, greater than 50% of time spent counseling, educating, and coordinating care regarding the above mentioned plan. ICD10 Worksheet Patient Problems: Problems Problem Status Onset Abdominal pain Acute Failure to thrive in adult Acute AIDS Acute CMV (cytomegalovirus) Acute
--- NOTE | 2017-09-30 15:14 | POSTANESTH ---
Post Anesthetic Evaluation Cardiovascular Status: Normal, Stable, Similar to Pre-Op Cond Level of Consciousness/Mental Status: Mildly Sleepy, Arousable Pain Control: Adequate, Prn Tx Ordered Nausea/Vomiting Control: Adequate, Prn Tx Ordered Complications Possibly Related to Anesthesia: None Noted
[2017-09-30] MEDS: HYDROmorphONE/DILAUDID 1 MG/ML INJ IVP PRN ×2 (16:17→23:28)
--- NOTE | 2017-09-30 17:50 | GCON ---
[f rep st] CONSULTATION DATE OF CONSULTATION: 09/30/2017 REQUESTING PHYSICIAN: Dr. Dwain Daniel. REASON FOR CONSULTATION: Dysphagia, melena. HISTORY OF PRESENT ILLNESS: The patient is a 56-year-old male with history of AIDS, CMV ileitis, who was admitted on 10/04/2017, for failure to thrive. The patient states that he has been having black bowel movements for least the last month. He states that he is constipated and has a bowel movement approximately once every week which has been darker. He has had several bowel movements with the consistency of sludge. He also has had complaints of dysphagia, mainly to solids. This has been present for least the last 6 months and occurs approximately 1 time a week with solid food. He denies any odynophagia or heartburn. He denies any exacerbating or alleviating factors to his symptoms. The patient had a colonoscopy on 09/02/2017, and was found to have multiple ileal ulcers. Biopsies were taken and were positive for CMV. During this hospitalization, his hemoglobin has dropped from 10 to 7.5 with hydration. I am being asked by Dr. Daniel to evaluate the patient in consultation regarding his melenic stools with drop in anemia, as well as dysphagia. PAST MEDICAL HISTORY: 1. AIDS. 2. Chronic hepatitis B. 3. Anemia of chronic disease. PAST SURGICAL HISTORY: Colonoscopy on 09/02/2017. ALLERGIES: NKDA. MEDICATIONS OUTPATIENT: Azithromycin, Bactrim, Descovy, Tivicay, Biktarvy. SOCIAL HISTORY: Positive tobacco. Positive marijuana edibles. No IV drug use. FAMILY HISTORY: Father has pancreatic cancer. REVIEW OF SYSTEMS: A 14-point comprehensive review of systems was asked. Pertinent positives and negatives per HPI. PHYSICAL EXAM: VITAL SIGNS: Blood pressure 87/61, pulse 72, respiratory rate 12, temperature 36.4. GENERAL: Awake, alert, oriented x3. HEENT: Anicteric. Moist oral mucosa. NECK: No JVD. CARDIOVASCULAR: Regular rate and rhythm. Positive S1, S2. No murmurs or gallops appreciated. LUNGS: Clear to auscultation bilaterally. No wheezes, rales, or rhonchi. ABDOMEN: Hypoactive bowel sounds. Mild tenderness to deep palpations. EXTREMITIES: No clubbing, cyanosis, edema. NEUROLOGIC: 2 through 12 grossly intact. PSYCH: Normal affect. SKIN: No obvious rash. MUSCULAR: No obvious joint deformities. LABORATORY: WBC 9.86, hemoglobin 7.5, hematocrit 22.5, platelets 362. INR 1.09. Sodium 131, potassium 4, chloride 101, bicarb 22, BUN 9, creatinine 0.7, AST 42, ALT 42. ASSESSMENT AND PLAN: 1. Melena- with dysphagia. Post hemorrhagic anemia. At this time, I recommend to proceed with upper endoscopy to delineate the cause of his symptoms. The risks, benefits, and alternatives of procedure were explained in detail with this patient. Risk of infection, bleeding, perforation, and sedation were discussed. Due to his AIDS, he is at an increased risk of infection and this was discussed with him. All questions answered. Informed consent was obtained. 2. AIDS Thank you for the consultation! /[id number]/MODL MTDD
--- NOTE | 2017-09-30 18:20 | GCON ---
[f rep st] CONSULTATION CRITICAL CARE CONSULTATION DATE OF CONSULTATION: 09/30/2017 HISTORY OF PRESENT ILLNESS: This patient is a 56-year-old male with a recent diagnosis of HIV. He h ad a CD4 count of 4 and a viral load of 516,000 at the end of July when he was first diagnosed. He had insurance difficulties and had difficulty getting treatment started but is now on antiretroviral therapy. He is also diagnosed with CMV terminal ileitis and is been started on valganciclovir twice daily for treatment but it turned out that he was probably taking half the dose he was supposed to ta ke. In any case, he was seen in the ID clinic on the day of admission and had failure to thrive. He did complain of pretty clear dark stools, but no hematemesis, nausea, or vomiting. He was admitted to undergo endoscopy and had a drop in his blood pressure while on the floor, so was given IV fluids with a marginal improvement in the blood pressure. He said his blood pressure does run relatively lo w but more like 100/80 and he was down in the 60s. He did respond to the IV fluids and was given 2 u nits of packed red cells this morning. An endoscopy is pending at this time. REVIEW OF SYSTEMS: Otherwise negative. PAST MEDICAL HISTORY: Includes: 1. HIV as described. 2. CMV terminal ileitis. 3. Anemia of chronic disease. 4. Chronic hepatitis B. SOCIAL HISTORY: He is an ongoing heavy smoker but no alcohol or IV drug use. FAMILY HISTORY: Noncontributory. PHYSICAL EXAM: VITAL SIGNS: Today at the time of my evaluation, he had a blood pressure of 83/52 wi th a MAP of 62, heart rate of 80, respirations 16, oxygen saturation 95% on room air. GENERAL: He i s pleasant man in no apparent distress. He was not cachectic but thin, in no apparent distress and a ble to speak in full sentences without using accessory muscles for breathing. HEENT: Pupils are equa lly round and reactive to light. Nonicteric and noninjected. Mucous membranes were moist without er ythema or exudate. NECK: Supple without adenopathy or jugular vein distention. LUNGS: Breath soun ds were clear to auscultation bilaterally without wheezes, rubs, or rales. HEART: Regular rate and rhythm without obvious murmur. ABDOMEN: Soft, nontender, nondistended without hepatosplenomegaly, t elijah there was some guarding in the right flank, but no obvious mass. EXTREMITIES: No clubbing, cya nosis, or edema. NEUROLOGIC: Nonfocal. SKIN: Warm and dry without evidence of rash. OBJECTIVE DATA: Includes a white count of 9.8, hematocrit 23 with a hemoglobin of 7.5 and this is do wn from 10 and 35 on admission on 09/28, platelets of 362. Basic metabolic panel is unremarkable. A lkaline phosphatase was 355, of uncertain etiology. His transaminases were normal, as was his total bilirubin. Procalcitonin was 1.65 which does show some increase for infection. Urinalysis was unrem arkable. His CMV DNA was 1380. Blood cultures were pending. An abdominal CT scan showed new retroperitoneal and para-aortic, as well as mesenteric, adenopathy me asuring up to 3 cm. His previous terminal ileitis was improved. There were no obvious bowel obstruc tions. No perforations were seen. ASSESSMENT AND PLAN: 1. Hypotension. This may be due to gastrointestinal bleeding. He was thought to have ulcers in the past and he is planning to get an upper endoscopy today. I think transfusing blood at this point to improve his blood pressure would certainly be of some value. I do not believe this is septic shock at this moment or adrenal crisis or acute coronary syndrome. Will monitor his blood pressure closely and treat appropriately. 2. Human immunodeficiency virus and cytomegalovirus ileitis. He is being followed closely by Dr. Lionel balderas from Infectious Disease and will continue on his previous medications. 3. New adenopathy which has a large differential, which may be associated with both infection and ma lignancy, and percutaneous biopsy is planned for the very near future. /[id number]/MODL
--- NOTE | 2017-09-30 19:16 | GIREPORT ---
[facility] Surgical Services - Endoscopy Department Patient Name: Tyson Montanez Procedure Date: 09/30/2017 2:24 PM Patient Type: Inpatient Attending MD/ ER Physician: Rom Perea MD Procedure: Upper GI endoscopy Indications: Acute post hemorrhagic anemia, Dysphagia, Melena Patient Profile: 56 year old male presents for evaluation of dysphagia and melena with p ost hemorrhagic anemia. Providers: Rom Perea MD Medicines: Monitored Anesthesia Care Complications: No immediate complications. Estimated blood loss: Minimal. Description of Procedure: After obtaining informed consent, the endoscope was passed under direct vision. Throughout the procedure, the patient's blood pressure, pulse, and oxygen saturations were monitored continuously. The Endoscope was intro duced through the mouth, and advanced to the second part of duodenum. The [facility] er GI endoscopy was accomplished without difficulty. The patient tolerated th e procedure well. Findings: The Z-line was irregular with nodularity. Biopsies were taken. Biopsies were taken with a cold forceps in the middle third of the esop hagus for histology. A hiatal hernia was present. Patchy moderately erythematous mucosa was found in the gastric body and in the gastric antrum. Biopsies were taken with a cold forceps for histolo gy. The examined duodenum was normal. Estimated Blood Loss: Estimated blood loss was minimal. Post Op Diagnosis: - Z-line irregular. Biopsies were taken. - Hiatal hernia. - Erythematous mucosa in the gastric body and antrum. Biopsied. - Normal examined duodenum. - Biopsies were taken with a cold forceps for histology in the middle t hird of the esophagus. - No blood seen. - Etiology? No ulcer noted. No cause of bleeding noted. Secondary to ileitis? No cause of dysphagia seen and suspect secondary to silent AUGUSTUS D? Await biopsy results. Recommendation: - Return patient to hospital [facility] for ongoing care. - Use a proton pump inhibitor PO daily. - Await pathology results. - Continue previous medications. - Thank you for allowing me to participate in the care of your patient. Attending Participation: I personally performed the entire procedure. Rom Perea MD Rom Perea MD 09/30/2017 7:15:43 PM This report has been signed electronicallyRom Perea MD Number of Addenda: 0 Note Initiated On: 09/30/2017 2:24 PM [email or web address]
[2017-10-01] MEDS: NS 1,000 ML IV SCH (01:53)
[2017-10-01] MEDS: ACETAMINOPHEN 500 MG TAB PO PRN (05:03)
[2017-10-01] MEDS: PIPERACILLIN/TAZO 4.5 GM/DEX 100 ML IV SCH ×4 (05:03→22:52)
[2017-10-01] MEDS: NYSTATIN SUSP 500000 UNIT/5 ML UDCUP PO SCH ×5 (05:16→22:47)
[2017-10-01] MEDS: HYDROmorphONE/DILAUDID 1 MG/ML INJ IVP PRN ×2 (05:47→05:56)
--- NOTE | 2017-10-01 09:06 | PCMIDPN ---
Assessment/Plan: 1. Fever/hypotension/melenic stool: EGD fairly unrevealing with no evidence of active bleeding. Suspect this is coming from active CMV ileitis, especially in the setting of suboptimal therapy with valganciclovir . (The patient was taking 450 mg twice a day, instead of 900 mg twice a day). CMV viremia has improved, but is still detectable. He is now on the correct dose of Valcyte, 900 mg twice a day. Appreciate Gastroenterology assistance. Continue proton pump inhibitor. Continue Zosyn for another day or so, then stop if cultures remain negative. 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 Please see above. Suspect this is the cause of his melenic stool and intra-abdominal adenopathy. 4. Bulky jermaine aortic/retroperitoneal adenopathy: I suspect this is related to ongoing CMV terminal ileitis and immune reconstitution. Would prefer to hold off on another invasive procedure for now , and see what happens with time and correct dose of Valcyte. AFB blood culture pending for possible D MAC. 5. Elevated alkaline phosphatase: Repeat today. Please see my prior notes. 6. HIV/aids: Continue Descovy and Dolutegravir as is. MRI of the brain negative. 7. Prophylaxis: Continue Bactrim DS daily. Potassium stable. Old azithromycin out of concern for possible disseminated MAC. Over 25 min was spent with this patient today. Subjective: EGD report reviewed. No active bleeding noted. Hiatal hernia seen and some erythematous areas in his stomach. These were biopsied. Patient feels great today, and has no complaints other than some constipation. No nausea or vomiting. Transfuse 2 units of packed red cells and his hematocrit is holding at 30. Has a great appetite. Objective: Zosyn 4.5 g IV q.6 hours day 1 Bactrim DS daily Descovy/Dolutegravir daily T-max 37 degrees for Vital Signs Temp Pulse Resp BP Pulse Ox 37.1 C 88 20 92/70 L 96 10/01/17 05:57 10/01/17 08:05 10/01/17 08:05 10/01/17 08:05 10/01/17 08:05 Laboratory Results 10/01/17 04:44 09/30/17 10/01/17 10/02/17 05:59 05:59 05:59 Intake Total 1340 3703 Output Total 600 650 Balance 740 3053 Be blood culture still negative CMV PCR 1380, down from 14,700 Serum cryptococcal antigen negative - Physical Exam General Appearance: alert, no apparent distress EENT: pharynx normal, No thrush Respiratory: lungs clear Cardiac/Chest: regular rate, rhythm Abdomen: soft, other (Mild tenderness to palpation bilateral lower quadrants) Skin: No rash ICD10 Worksheet Patient Problems: Problems Problem Status Onset AIDS Acute Abdominal pain Acute CMV (cytomegalovirus) Acute Failure to thrive in adult Acute
[2017-10-01] MEDS: TENOFOV ALAFENAM PO SCH (09:27)
[2017-10-01] MEDS: SULFAMETHOX/TMP 800/160 MG 1 TAB PO SCH (09:27)
[2017-10-01] MEDS: DOCUSATE SODIUM 100 MG CAP PO SCH ×2 (09:27→22:47)
[2017-10-01] MEDS: VITAMIN B COMPLEX 1 EA CAP/TAB PO SCH (09:27)
[2017-10-01] MEDS: CHOLECALCIFEROL VIT D3 2,000 UNITS TAB/CAP PO SCH (09:27)
[2017-10-01] MEDS: EMTRICITABINE PO SCH (09:27)
[2017-10-01] MEDS: (Dolutegravir Sodium [Tivicay] 50 MG) PO SCH (09:28)
[2017-10-01] MEDS: PANTOPRAZOLE SODIUM 40 MG TAB PO SCH ×2 (09:32→22:47)
--- NOTE | 2017-10-01 11:39 | PDINTPN ---
[employer] Progress Note Assessment/Plan: Assessment/plan: 56 m with recent diagnosis of HIV/AIDS presented in late july with CD$= 4 and VL>500,000 copies. He was found to have CMV terminal ileitis and treated with valganciclovir, but misunderstood directions and was only taking half his dose. He was admitted to [facility] 09/28 with FTT but complained of black stool without N/V/ hemetemsis. An abdominal CT showed new onset abdominal lymphadenopathy with improvement in the ileitis findings from previous imaging. He developed hypotension and required aggressive fluid resuscitation, which included RBC for AOCD. His BP recovered without pressors. EGD was mostly unremarkable, though esophageal biopsies were taken. * Hypotension- likely hypovolemia since this responded so well to IVF/RBC. No evidence of bleeding and he reports normal stool today. Valganciclovir dose clarified with Dr. Kamara today. * Adenopathy- ddx includes reactive HUEY vs lymphoma or disseminated MAC. Bcx NTD for MAC. Would recommend followup CT in 1 month- if the LNs are reactive, should defervesce with adequate CMV treatment. If not, biopsy. * Dysuria- patient c/o sever dysuria last pm; now resolved. Denied foreign body urethral insertion. * OK for med surg Objective: Vital Signs Temp Pulse Resp BP Pulse Ox 37.1 C 88 20 92/70 L 96 10/01/17 05:57 10/01/17 08:05 10/01/17 08:05 10/01/17 08:05 10/01/17 08:05 Laboratory Results 10/01/17 04:44 10/01/17 08:30 09/30/17 10/01/17 10/02/17 05:59 05:59 05:59 Intake Total 1340 3703 Output Total 600 650 475 Balance 740 3053 -475 PT 14.3 SEC (12.0-15.0) 09/28/17 10:30 INR 1.09 (0.83-1.16) 09/28/17 10:30 Physical Exam - Physical Exam General Appearance: WD/WN, alert, no apparent distress EENT: PERRL/EOMI Neck: supple Respiratory: lungs clear, normal breath sounds, No respiratory distress, No accessory muscle use Cardiac/Chest: regular rate, rhythm, No edema Abdomen: non-tender, soft, No distended Skin: normal color, warm/dry, No cyanosis Lymphatic: no adenopathy Extremities: No pedal edema Neuro/Psych: alert, normal mood/affect, oriented x 3 ICD10 Worksheet Patient Problems: Problems Problem Status Onset AIDS Acute Abdominal pain Acute CMV (cytomegalovirus) Acute Failure to thrive in adult Acute
--- NOTE | 2017-10-01 12:23 | HOSPPROG ---
Hospitalist Progress Note Assessment/Plan: 56 yo M with new dx of AIDS admitted with CMV ileitis # CMV ileitis - cont valcyte, appreciate ID consult. Patient had been taking suboptimal dosage and is now on correct dose of valcyte 900 bid # melena: s/p egd without e/o active bleeding or # acute on chronic anemia: with acute blood loss contributing as well as likely anemia of chronic disease, stable now s/p tx of 2 units prbc # HIV/AIDS - cont anti-retrovirals, bactrim, appreciate ID consult, MRI negative # retroperitoneal and jermaine-aortic LAD - most likely reactive from CMV ileitis versus lymphoma. will need repeat imaging versus biopsy, at this point likely repeat imaging # fever/hypotension - IRIS vs disseminated MAC? vs other--remains on zosyn for now but if cultures remain negative and patient remains afebrile can likely dc in coming days # SPCM - cont nutrition support # deconditioning - PT/OT Care plan reviewed with Dr. Andrade and multidisciplinary team on rounds. Subjective: no significant overnight events , patient states he is currently feeling very well Objective: Vital Signs Temp Pulse Resp BP Pulse Ox 37.1 C 88 20 92/70 L 96 10/01/17 05:57 10/01/17 08:05 10/01/17 08:05 10/01/17 08:05 10/01/17 08:05 Laboratory Results 10/01/17 04:44 10/01/17 08:30 09/30/17 10/01/17 10/02/17 05:59 05:59 05:59 Intake Total 1340 3703 Output Total 600 650 475 Balance 740 3053 -475 PT 14.3 SEC (12.0-15.0) 09/28/17 10:30 INR 1.09 (0.83-1.16) 09/28/17 10:30 awake alert cachectic anicteric op clear rrr no mrg cta b soft nt nd no cce warm dry well perfused oriented appropriate - Time Spent With Patient Time Spent with Patient: greater than 35 minutes Time Spent with Patient: Greater than 35 minutes spent on this patients care, greater than 50% of time spent counseling, educating, and coordinating care regarding the above mentioned plan. ICD10 Worksheet Patient Problems: Problems Problem Status Onset AIDS Acute Abdominal pain Acute CMV (cytomegalovirus) Acute Failure to thrive in adult Acute
--- NOTE | 2017-10-01 15:39 | ASMTCMCOM ---
CM Note CM Note Notes: A home health care agency [facility] ([phone]) serves the [place] area if patient still needs home health at D/C. CM will continue to follow. D/C needs TBD. Date Signed: 10/01/2017 03:39 PM Electronically Signed By:Karin Howe LCSW
--- NOTE | 2017-10-01 16:39 | SOAPPROG ---
SOAP Progress Note Assessment/Plan: Assessment: Plan: 10/01/17 16:36 A/P 1. Dysphagia- No cause found. Will await biopsy results. Consider anti acid meds if biopsies unrevealing. 1. Melena- s/p EGD with no cause found. Also had recent colonoscopy with CMV Ileitis. Suspect from ileitis. Recommend to monitor H/H. GI will sign off. Thank you for the consultation! Subjective: cc: Follow up melena No complaints. Objective: Vital Signs Temp Pulse Resp BP Pulse Ox 36.2 C 84 16 105/77 99 10/01/17 15:00 10/01/17 15:00 10/01/17 15:00 10/01/17 15:00 10/01/17 15:00 Laboratory Results 10/01/17 04:44 10/01/17 08:30 09/30/17 10/01/17 10/02/17 05:59 05:59 05:59 Intake Total 1340 3703 400 Output Total 600 650 475 Balance 740 3053 -75 PT 14.3 SEC (12.0-15.0) 09/28/17 10:30 INR 1.09 (0.83-1.16) 09/28/17 10:30 Physical Exam - Physical Exam General Appearance: alert, no apparent distress Respiratory: lungs clear, normal breath sounds Cardiac/Chest: regular rate, rhythm Abdomen: soft, No non-tender (tender in lower abdomen, minimal), No distended, No guarding, No rebound Skin: normal color Neuro/Psych: normal mood/affect, oriented x 3, 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
[2017-10-01] MEDS: HYDROCODONE/APAP 5/325 TAB PO PRN ×2 (16:58→17:56)
[2017-10-01] MEDS: oxyCODONE IR 5 MG TAB PO PRN (23:32)
[2017-10-02] MEDS: HYDROmorphONE/DILAUDID 1 MG/ML INJ IVP PRN ×2 (03:45→08:26)
[2017-10-02] MEDS: PIPERACILLIN/TAZO 4.5 GM/DEX 100 ML IV SCH ×4 (05:09→23:43)
[2017-10-02] MEDS: NYSTATIN SUSP 500000 UNIT/5 ML UDCUP PO SCH ×4 (05:10→21:07)
[2017-10-02] MEDS: ACETAMINOPHEN 500 MG TAB PO PRN ×2 (08:43→23:46)
[2017-10-02] MEDS ORDERED: NS 1,000 ML IV ONE (08:53)
[2017-10-02 09:43] LABS: PLATELET COUNT 361 10^3/uL (150-400)
[2017-10-02] MEDS: DOCUSATE SODIUM 100 MG CAP PO SCH ×2 (11:37→20:55)
[2017-10-02] MEDS: VITAMIN B COMPLEX 1 EA CAP/TAB PO SCH (11:37)
[2017-10-02] MEDS: SULFAMETHOX/TMP 800/160 MG 1 TAB PO SCH (11:37)
[2017-10-02] MEDS: CHOLECALCIFEROL VIT D3 2,000 UNITS TAB/CAP PO SCH (11:37)
[2017-10-02] MEDS: (Dolutegravir Sodium [Tivicay] 50 MG) PO SCH (11:39)
[2017-10-02] MEDS: EMTRICITABINE PO SCH (11:39)
[2017-10-02] MEDS: TENOFOV ALAFENAM PO SCH (11:39)
[2017-10-02] MEDS: PANTOPRAZOLE SODIUM 40 MG TAB PO SCH ×2 (11:40→21:07)
--- NOTE | 2017-10-02 13:51 | HOSPPROG ---
Hospitalist Progress Note Assessment/Plan: 56 yo M with new dx of AIDS admitted with CMV ileitis # CMV ileitis - cont valcyte, appreciate ID consult. Patient had been taking suboptimal dosage and is now on correct dose of valcyte 900 bid # SIRS: this am recurrent high fever, tachycardia and abdominal pain. Repeat cultures drawn. CXR personally reviewed/interpreted showing new atypical/viral PNA compared to prior. Continued on zosyn for now and will add azithromycin for coverage of new atypical pna noted on imaging. # abdominal pain: has been severe intermittently, also with intermittent severe pain with urination. UA negative, pain now resolved. Presumably 2/2 ileitis as well as diffuse abdominal lymphadenopathy but will need to repeat imaging if pain remains increased # melena: s/p egd without e/o active bleeding or etiology for bleeding noted. Suspected due to ileitis. Has not recurred # acute on chronic anemia: with acute blood loss contributing as well as likely anemia of chronic disease, stable now s/p tx of 2 units prbc # HIV/AIDS - cont anti-retrovirals, bactrim, appreciate ID consult, MRI negative # retroperitoneal and jermaine-aortic LAD - most likely reactive from CMV ileitis versus lymphoma. will need repeat imaging versus biopsy, at this point likely repeat imaging # SPCM - cont nutrition support # deconditioning - PT/OT IP status, DC TBD Subjective: no significant overnight events, patient this am with fever, increased hr, abdominal pain Objective: Vital Signs Temp Pulse Resp BP Pulse Ox 37.4 C 109 H 18 139/95 H 98 10/02/17 09:27 10/02/17 09:27 10/02/17 09:27 10/02/17 09:27 10/02/17 09:27 Laboratory Results 10/02/17 09:23 10/02/17 04:39 10/01/17 10/02/17 10/03/17 05:59 05:59 05:59 Intake Total 3703 950 1380 Output Total 650 925 500 Balance 3053 25 880 PT 14.3 SEC (12.0-15.0) 09/28/17 10:30 INR 1.09 (0.83-1.16) 09/28/17 10:30 awake alert cachectic anicteric op clear rrr no mrg cta b soft nt nd no cce warm dry well perfused oriented appropriate - Time Spent With Patient Time Spent with Patient: greater than 35 minutes Time Spent with Patient: Greater than 35 minutes spent on this patients care, greater than 50% of time spent counseling, educating, and coordinating care regarding the above mentioned plan. ICD10 Worksheet Patient Problems: Problems Problem Status Onset AIDS Acute Abdominal pain Acute CMV (cytomegalovirus) Acute Failure to thrive in adult Acute
[2017-10-02] MEDS ORDERED: AZITHROMYCIN IV 500 MG in NS 250 ML IV SCH (14:00)
[2017-10-02] MEDS: oxyCODONE IR 5 MG TAB PO PRN (18:21)
[2017-10-03] MEDS: NYSTATIN SUSP 500000 UNIT/5 ML UDCUP PO SCH ×4 (05:33→20:11)
[2017-10-03] MEDS: PIPERACILLIN/TAZO 4.5 GM/DEX 100 ML IV SCH ×2 (05:33→13:09)
[2017-10-03] MEDS: oxyCODONE IR 5 MG TAB PO PRN ×3 (09:45→20:10)
[2017-10-03] MEDS: HYDROmorphONE/DILAUDID 1 MG/ML INJ IVP PRN (10:15)
[2017-10-03] MEDS: CHOLECALCIFEROL VIT D3 2,000 UNITS TAB/CAP PO SCH (10:18)
[2017-10-03] MEDS: VITAMIN B COMPLEX 1 EA CAP/TAB PO SCH ×2 (10:18→10:19)
[2017-10-03] MEDS: SULFAMETHOX/TMP 800/160 MG 1 TAB PO SCH (10:18)
[2017-10-03] MEDS: PANTOPRAZOLE SODIUM 40 MG TAB PO SCH ×2 (10:19→20:11)
[2017-10-03] MEDS: DOCUSATE SODIUM 100 MG CAP PO SCH ×2 (10:19→20:11)
[2017-10-03] MEDS: TENOFOV ALAFENAM PO SCH (10:20)
[2017-10-03] MEDS: EMTRICITABINE PO SCH (10:20)
[2017-10-03] MEDS: (Dolutegravir Sodium [Tivicay] 50 MG) PO SCH (10:21)
--- NOTE | 2017-10-03 14:51 | HOSPPROG ---
Hospitalist Progress Note Assessment/Plan: 56 yo M with new dx of AIDS admitted with CMV ileitis # CMV ileitis - cont valcyte, appreciate ID consult. Patient had been taking suboptimal dosage and is now on correct dose of valcyte 900 bid # SIRS: yesterday with fever and tachycardia and cxr concerning for atypical pna. ID recommended waiting on abx coverage in case this is PCP pna. CT chest ordered and personally reviewed showing bibasilar opacities without ground glass , c/w atelectasis versus atypical pna. # abdominal pain: has been severe intermittently, also with intermittent severe pain with urination. UA negative, pain now resolved. Presumably 2/2 ileitis as well as diffuse abdominal lymphadenopathy but will need to repeat imaging if pain remains increased # melena: s/p egd without e/o active bleeding or etiology for bleeding noted. Suspected due to ileitis. Has not recurred # acute on chronic anemia: with acute blood loss contributing as well as likely anemia of chronic disease, stable now s/p tx of 2 units prbc # HIV/AIDS - cont anti-retrovirals, bactrim, appreciate ID consult, MRI negative # retroperitoneal and jermaine-aortic LAD - most likely reactive from CMV ileitis versus lymphoma. will need repeat imaging versus biopsy, at this point likely repeat imaging # SPCM - cont nutrition support, BMI 17, appetite good currently # deconditioning - PT/OT IP status, DC TBD Subjective: no significant overnight events, patient feeling much better today, afebrile overnight Objective: Vital Signs Temp Pulse Resp BP Pulse Ox 36.4 C 66 16 96/73 L 98 10/03/17 07:26 10/03/17 07:26 10/03/17 07:26 10/03/17 07:26 10/03/17 07:26 Microbiology 10/01/17 01:58 Urine Culture - Final Urine,Clean Catch 10/02/17 17:22 Respiratory Panel (PCR) - Final Nasal, Sinus - Swab No Organism Detected Laboratory Results 10/02/17 09:23 10/03/17 04:54 10/02/17 10/03/17 10/04/17 05:59 05:59 05:59 Intake Total 950 3577 Output Total 925 1500 Balance 25 2077 PT 14.3 SEC (12.0-15.0) 09/28/17 10:30 INR 1.09 (0.83-1.16) 09/28/17 10:30 awake alert cachectic anicteric op clear rrr no mrg cta b soft nt nd no cce warm dry well perfused oriented appropriate ICD10 Worksheet Patient Problems: Problems Problem Status Onset AIDS Acute Abdominal pain Acute CMV (cytomegalovirus) Acute Failure to thrive in adult Acute
--- NOTE | 2017-10-03 15:29 | PCMIDPN ---
Assessment/Plan: 1. History of fever/hypotension/melenic stool: EGD without evidence of active bleeding and no obvious source of bleed. Suspect related to ongoing terminal ileitis in the setting of suboptimal Valcyte dosing. He is now on the correct dose. I do not feel that he needs ongoing Zosyn and this is likely contributing to diarrhea. Will discontinue. 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 Please see above. Suspect this is the cause of his melenic stool and intra-abdominal adenopathy. 4. Bulky jermaine aortic/retroperitoneal adenopathy: I suspect this is related to ongoing CMV terminal ileitis and immune reconstitution. Still may need lymph node biopsy, although this will be technically difficult given the location of the lymph nodes. Follow clinically for now. 5. Elevated alkaline phosphatase: Improving. 6. HIV/aids: Continue Descovy and Dolutegravir as is. MRI of the brain negative. Will order repeat viral load and T-cell count. 7. Prophylaxis: Continue Bactrim DS daily. 10/03/17 15:28 Subjective: Events over past 48 hr noted. Patient was febrile again, and chest x-ray showed a possible atypical pneumonia so azithromycin was added. I was checking on this patient from home yesterday, and stop the azithromycin in order to chest CT. The chest CT is not convincing for pneumonia. The patient feels great today, but is having some diarrhea. His abdominal pain is better. No nausea or vomiting. He is eating and is quite hungry. Objective: He is presently afebrile, with no fever the past 24 hr Valcyte 900 twice daily Descovy/Dolutegravir daily Bactrim double strength daily Zosyn 4.5 g IV q.6 hours day 3 Vital Signs Temp Pulse Resp BP Pulse Ox 36.4 C 66 16 96/73 L 98 10/03/17 07:26 10/03/17 07:26 10/03/17 07:26 10/03/17 07:26 10/03/17 07:26 Microbiology 10/01/17 01:58 Urine Culture - Final Urine,Clean Catch 10/02/17 17:22 Respiratory Panel (PCR) - Final Nasal, Sinus - Swab No Organism Detected Laboratory Results 10/02/17 09:23 10/03/17 04:54 0510/03/17 10/04/17 05:59 05:59 05:59 Intake Total 950 5457 Output Total 921 1500 Balance 25 7 Blood cultures recently are negative - Physical Exam General Appearance: alert, no apparent distress EENT: pharynx normal, No thrush Respiratory: other (Diminished breath sounds at the bases otherwise clear) Cardiac/Chest: regular rate, rhythm Abdomen: soft, other (Normoactive bowel sounds, no significant tenderness on exam today.) Skin: No rash ICD10 Worksheet Patient Problems: Problems Problem Status Onset AIDS Acute Abdominal pain Acute CMV (cytomegalovirus) Acute Failure to thrive in adult Acute
[2017-10-03] MEDS: ACETAMINOPHEN 500 MG TAB PO PRN (15:48)
[2017-10-04] MEDS: oxyCODONE IR 5 MG TAB PO PRN ×5 (04:07→23:03)
[2017-10-04] MEDS: NYSTATIN SUSP 500000 UNIT/5 ML UDCUP PO SCH ×4 (06:17→20:07)
[2017-10-04] MEDS: SULFAMETHOX/TMP 800/160 MG 1 TAB PO SCH (09:30)
[2017-10-04] MEDS: PANTOPRAZOLE SODIUM 40 MG TAB PO SCH ×2 (09:30→20:07)
[2017-10-04] MEDS: VITAMIN B COMPLEX 1 EA CAP/TAB PO SCH (09:30)
[2017-10-04] MEDS: DOCUSATE SODIUM 100 MG CAP PO SCH ×2 (09:30→20:07)
[2017-10-04] MEDS: (Dolutegravir Sodium [Tivicay] 50 MG) PO SCH (09:31)
[2017-10-04] MEDS: CHOLECALCIFEROL VIT D3 2,000 UNITS TAB/CAP PO SCH (09:31)
[2017-10-04] MEDS: TENOFOV ALAFENAM PO SCH (09:32)
[2017-10-04] MEDS: EMTRICITABINE PO SCH (09:32)
--- NOTE | 2017-10-04 12:06 | ASMTCMCOM ---
CM Note CM Note Notes: Sent referral to [facility]. Patient is deconditioned and will most likely need PT/OT/ RN. Continue to monitor patient's progress. CM will follow. Date Signed: 10/04/2017 12:06 PM Electronically Signed By:Karin Howe LCSW
--- NOTE | 2017-10-04 13:46 | HOSPPROG ---
Hospitalist Progress Note Assessment/Plan: 56 yo M with new dx of AIDS admitted with CMV ileitis # CMV ileitis - cont valcyte, appreciate ID consult. Patient had been taking suboptimal dosage and is now on correct dose of valcyte 900 bid, symptomatically improving significantly in the last couple of days # SIRS: now afebrile, off of zosyn and monitoring for now # abdominal pain: now resolved. Presumably 2/2 ileitis as well as diffuse abdominal lymphadenopathy # melena: s/p egd without e/o active bleeding or etiology for bleeding noted. Suspected due to ileitis. Has not recurred # acute on chronic anemia: with acute blood loss contributing as well as likely anemia of chronic disease, stable now s/p tx of 2 units prbc # HIV/AIDS - cont anti-retrovirals, bactrim, appreciate ID consult, MRI negative # retroperitoneal and jermaine-aortic LAD - most likely reactive from CMV ileitis versus lymphoma. will need repeat imaging versus biopsy, at this point likely repeat imaging # SPCM - cont nutrition support, BMI 17, appetite good currently # deconditioning - PT/OT IP status, DC TBD. Reviewed patients clinical course with patients sister in law Farah over the phone per patient request Subjective: no significant overnight events, patient now eating better and less pain Objective: Vital Signs Temp Pulse Resp BP Pulse Ox 36.7 C 75 12 135/91 H 98 10/04/17 07:37 10/04/17 07:37 10/04/17 07:37 10/04/17 07:37 10/04/17 07:37 Microbiology 10/01/17 01:58 Urine Culture - Final Urine,Clean Catch Laboratory Results 10/02/17 09:23 10/04/17 04:53 10/03/17 10/04/17 10/05/17 05:59 05:59 05:59 Intake Total 3577 400 Output Total 1500 1650 75 Balance 2077 -1250 -75 PT 14.3 SEC (12.0-15.0) 09/28/17 10:30 INR 1.09 (0.83-1.16) 09/28/17 10:30 awake alert cachectic anicteric op clear rrr no mrg cta b soft nt nd no cce warm dry well perfused oriented appropriate - Time Spent With Patient Time Spent with Patient: greater than 35 minutes Time Spent with Patient: Greater than 35 minutes spent on this patients care, greater than 50% of time spent counseling, educating, and coordinating care regarding the above mentioned plan. ICD10 Worksheet Patient Problems: Problems Problem Status Onset AIDS Acute Abdominal pain Acute CMV (cytomegalovirus) Acute Failure to thrive in adult Acute
[2017-10-05] MEDS: oxyCODONE IR 5 MG TAB PO PRN (04:57)
[2017-10-05] MEDS: NYSTATIN SUSP 500000 UNIT/5 ML UDCUP PO SCH (05:00)
[2017-10-05 08:33] VITALS: BP 122/87
[2017-10-05] MEDS: DOCUSATE SODIUM 100 MG CAP PO SCH (08:39)
[2017-10-05] MEDS: VITAMIN B COMPLEX 1 EA CAP/TAB PO SCH (08:39)
[2017-10-05] MEDS: SULFAMETHOX/TMP 800/160 MG 1 TAB PO SCH (08:39)
[2017-10-05] MEDS: CHOLECALCIFEROL VIT D3 2,000 UNITS TAB/CAP PO SCH (08:39)
[2017-10-05] MEDS: PANTOPRAZOLE SODIUM 40 MG TAB PO SCH (08:39)
[2017-10-05] MEDS: (Dolutegravir Sodium [Tivicay] 50 MG) PO SCH (08:41)
[2017-10-05] MEDS: EMTRICITABINE PO SCH (08:41)
[2017-10-05] MEDS: TENOFOV ALAFENAM PO SCH (08:41)
--- NOTE | 2017-10-05 08:57 | PCMIDPN ---
Assessment/Plan: 1. History of fever/hypotension/melenic stool: Resolved. Continue proton pump inhibitor. I do feel that it is okay send him home today. 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 Please see above. Suspect this is the cause of his melenic stool and intra-abdominal adenopathy. 4. Bulky jermaine aortic/retroperitoneal adenopathy: I suspect this is related to ongoing CMV terminal ileitis and immune reconstitution. Still may need lymph node biopsy, although this will be technically difficult given the location of the lymph nodes. Follow clinically for now. 5. Elevated alkaline phosphatase: Stable. 6. HIV/aids: Continue Descovy and Dolutegravir as is. MRI of the brain negative. Repeat T- cell count and viral load pending. 7. Prophylaxis: Continue Bactrim DS daily. 8. Disposition: Home today. Only new medication for him will be omeprazole 20 mg daily, and his provider at [facility], Joceline Turpin, called this into his pharmacy and they will mail it to him overnight. We will schedule a follow-up appointment for him next Wednesday. Subjective: Patient is all smiles today. Eating, no complaints. Eager to go home. Objective: Valcyte 900 mg p.o. twice daily Bactrim DS daily Descovy /Dolutegravir daily Afebrile Vital Signs Temp Pulse Resp BP Pulse Ox 37.1 C 86 19 122/87 H 93 10/05/17 08:31 10/05/17 08:31 10/05/17 08:31 10/05/17 08:31 10/05/17 07:17 Microbiology 09/30/17 05:53 Blood Culture - Final Blood 09/30/17 05:47 Blood Culture - Final Blood Laboratory Results 10/02/17 09:23 10/04/17 04:53 10/04/17 10/05/17 10/06/17 05:59 05:59 05:59 Intake Total 400 1400 Output Total 1650 1075 100 Balance -1250 325 -100 - Physical Exam General Appearance: alert, no apparent distress EENT: pharynx normal, No thrush Respiratory: lungs clear Abdomen: soft ICD10 Worksheet Patient Problems: Problems Problem Status Onset AIDS Acute Abdominal pain Acute CMV (cytomegalovirus) Acute Failure to thrive in adult Acute
--- NOTE | 2017-10-05 11:02 | PDDCSUM ---
Discharge Summary Discharge Summary: Dates of service 09/28-10/05/17 Consultations: ID, pulmonary/critical care Procedures performed: abd ct, brain MRI, EGD, chest CT Hospital course by problem: 56 yo M with new dx of AIDS admitted with CMV ileitis # CMV ileitis - Patient had been taking suboptimal dosage and is now on correct dose of valcyte 900 bid, symptomatically improving, has f/u arranged with ID # SIRS: now afebrile, off of zosyn and doing well without recurrence # abdominal pain: now resolved. Presumably 2/2 ileitis as well as diffuse abdominal lymphadenopathy # melena: s/p egd without e/o active bleeding or etiology for bleeding noted. Suspected due to ileitis. Has not recurred # acute on chronic anemia: with acute blood loss contributing as well as likely anemia of chronic disease, stable now s/p tx of 2 units prbc # HIV/AIDS - cont anti-retrovirals, bactrim, MRI negative. Relatively new diagnosis, will continue to f/u with [facility]. # retroperitoneal and jermaine-aortic LAD - most likely reactive from CMV ileitis versus lymphoma. will need repeat imaging versus biopsy, at this point likely repeat imaging # SPCM - cont nutrition support, BMI 17, appetite good currently # deconditioning - PT/OT DC home with home health f/u with ID > 35 min spent in dc of patient more than half in coordination of care
--- NOTE | 2017-10-05 11:17 | PDIAF ---
- Diagnosis Code Status: Full Code - Medication Management Discharge Medications: Medications to Continue on Transfer Carboxymethylcellulose 1% [Refresh Celluvisc (*)] 1 drop EACHEYE DAILY PRN 09/28 [Last Taken Unknown] Cholecalciferol Vit D3 [Vitamin D3 2000 units tab (OTC)] 2,000 units PO DAILY [Last Taken 09/28/17] Dolutegravir Sodium [Tivicay] 50 mg PO DAILY 09/28/17 [Last Taken 09/27/17] Emtricitabine/Tenofov Alafenam [Descovy 200-25 mg Tablet] 1 each PO DAILY [Last Taken 09/27/17] Sulfamethox/Tmp 800/160 mg [Bactrim DS] 1 tab PO DAILY 09/28/17 [Last Taken ] Vitamin B Complex [Vitamin B Complex (OTC)] 1 each PO DAILY 09/28/17 [Last Taken 09/27/17] valGANciclovir [ValCYTE] 900 mg PO BIDMEAL 09/28/17 [Last Taken 09/27/17 18:00] Docusate Sodium [Colace 100 MG (*)] 100 mg PO BID cap 10/05/17 [Last Taken Unknown] Pantoprazole Sodium [Protonix 40mg (*)] 40 mg PO BID #60 tab 10/05/17 [Last Taken Unknown] Sennosides/Docusate Sodium [Senokot-S] 1 - 2 tab PO BID PRN tab 10/05/17 [Last Taken Unknown] valGANciclovir [ValCYTE] 900 mg PO BID #60 tab 10/05/17 [Last Taken Unknown] Discharge Medications: Refer to the Discharge Home Medication list for PRN reason. - Orders Services needed: Home Care, Registered Nurse, Physical Therapy, Occupational Therapy Home Care Face to Face: I certify that this patient was under my care and that I had the required oqka-hl-wubu encounter meeting the encounter requirements on the discharge day. My findings support the fact that the patient is homebound as defined in Home Care Face to Face Continued: [facility] Chapter 7 Medicare Benefits Manual 30.1.1 , The condition of the patient is such that there exists a normal inability to leave home and consequently, leaving home would require a considerable and taxing effort. Isolation Type: None - Follow Up Care Current Providers and Referrals: Marley Kamara MD [Primary Care Provider] - As per Instructions
--- NOTE | 2017-10-05 12:41 | PDIAF ---
- Diagnosis Code Status: Full Code - Medication Management Discharge Medications: Medications to Continue on Transfer Carboxymethylcellulose 1% [Refresh Celluvisc (*)] 1 drop EACHEYE DAILY PRN 09/28 [Last Taken Unknown] Cholecalciferol Vit D3 [Vitamin D3 2000 units tab (OTC)] 2,000 units PO DAILY [Last Taken 09/28/17] Dolutegravir Sodium [Tivicay] 50 mg PO DAILY 09/28/17 [Last Taken 09/27/17] Emtricitabine/Tenofov Alafenam [Descovy 200-25 mg Tablet] 1 each PO DAILY [Last Taken 09/27/17] Sulfamethox/Tmp 800/160 mg [Bactrim DS] 1 tab PO DAILY 09/28/17 [Last Taken ] Vitamin B Complex [Vitamin B Complex (OTC)] 1 each PO DAILY 09/28/17 [Last Taken 09/27/17] valGANciclovir [ValCYTE] 900 mg PO BIDMEAL 09/28/17 [Last Taken 09/27/17 18:00] Docusate Sodium [Colace 100 MG (*)] 100 mg PO BID cap 10/05/17 [Last Taken Unknown] Omeprazole 20 mg PO DAILY #30 capsule. 10/05/17 [Last Taken Unknown] Sennosides/Docusate Sodium [Senokot-S] 1 - 2 tab PO BID PRN tab 10/05/17 [Last Taken Unknown] Discharge Medications: Refer to the Discharge Home Medication list for PRN reason. - Orders Services needed: Home Care, Registered Nurse, Physical Therapy, Occupational Therapy Home Care Face to Face: I certify that this patient was under my care and that I had the required abyx-et-[id number] encounter meeting the encounter requirements on the discharge day. My findings support the fact that the patient is homebound as defined in Home Care Face to Face Continued: CMS Chapter 7 Medicare Benefits Manual 30.1.1 , The condition of the patient is such that there exists a normal inability to leave home and consequently, leaving home would require a considerable and taxing effort. Isolation Type: None Additional Instructions: YULIANA Car will call you tomorrow morning. Keep your weight up! lots of calories and protein! - Follow Up Care Current Providers and Referrals: Marley Kamara MD [Primary Care Provider] - As per Instructions
--- NOTE | 2017-10-05 16:24 | ASDISCHSUM ---
Discharge Information Plan Status:Home with Home Health Medically Cleared to Leave:10/05/2017 Discharge Date:10/05/2017 02:15 PM CM D/C Disposition: ADT D/C Disposition:Home, Routine, Self-Care Projected Discharge Date:10/05/2017 11:00 AM Transportation at D/C: Discharge Delay Reason: Follow-Up Date:10/05/2017 11:00 AM Discharge Slot: Final Diagnosis: Placement Information Referral Type:*Home Health Care Services Referral ID:[id number] Provider Name:[facility] Address 1:[address] Phone Number: Address 2:[facility] [address] Fax Number: City:[place] Selection Factors: State:[place] Patient Contact Information Contact Name:ALAN Relationship:Life Partner Address:[address] Work Phone: City:[place] Alternate Phone: State/Zip Code:[place] [address] Email: Financial Information Financial Class:Medicaid Primary Plan Desc:[place] Primary Plan Number:[id number] Secondary Plan Desc: Secondary Plan Number: Assessment Information LACE LACE Length of stay for Answers: 7-13 days current admission Acuity / Level of Answers: Yes Care: Did the patient have an inpatient admission? Comorbidities - select Answers: AIDS all that apply Score: 12 Date Signed: 10/05/2017 04:23 PM Electronically Signed By:JOHN Wen [facility] Initial CM Assessment Living Arrangements What is your living Answers: With Partner arrangement? Who do you live with? Type Of Residence What kind of residence do Answers: House you live in? Discharge Plan Comments Coordination Status Comments Notes: Pt is a 56 y/o man sent in by an infectious disease doctor. Pt was recently diagnosis with AIDS. PT echols been ordered and awaiting recommendations. Needs are TBD at this time. CM to follow. Plan: TBD Date Signed: 09/28/2017 03:50 PM Electronically Signed By:JOHN Wen [facility] CM Progress Note CM Note CM Note Notes: CM spoke w/pt re; dc poc. PT/OT recommend home care, pt and partner live in [facility], CM will try to find hc agency in his area. But pt also states he and partner Niles would like to move to [place]. Pt expresses interest in applying for dissability, CM will do some research, maybe call someone at the [facility]. DC Plan: Home Care Date Signed: 09/29/2017 04:48 PM Electronically Signed By:Genoveva Braga RN [facility] CM Progress Note CM Note CM Note Notes: A home health care agency [facility] ([phone]) serves the [place] area if patient still needs home health at D/C. CM will continue to follow. D/C needs TBD. Date Signed: 10/01/2017 03:39 PM Electronically Signed By:Karin Howe LCSW [facility] Progress Note CM Note CM Note Notes: Sent referral to [facility]. Patient is deconditioned and will most likely need PT/OT/ RN. Continue to monitor patient's progress. CM will follow. Date Signed: 10/04/2017 12:06 PM Electronically Signed By:Karin Howe LCSW Case Management Discharge Plan Note Case Management Discharge Discharge Order Complete? Answers: Yes Patient to Obtain Answers: via Family Medications Transportation Arranged Answers: Family/Friends EMTALA Complete Answers: No Case Management Transport Answers: No Form Complete Faxed Final Orders Answers: Yes Agency/Facility Transfer Answers: Yes Report Printed & Faxed to Receiving Agency Family Notified Answers: No Discharge Comments Notes: CM spoke w/ YULIANA De La Cruz and Dr. Daniel regarding d/c POC. Pt is being discharged today. CM met w/ pt for dispo planning. CM confirmed pts address and phone number. CM spoke sean Mendoza at [facility] and notified him of the d/c. DC orders sent. CM available for changes. Plan: [facility], PT, OT, RN Date Signed: 10/05/2017 11:34 AM Electronically Signed By:JOHN Wen Intervention Information
== END 2017-10-05 14:15 | disposition home health service (06) | DRG 890 ==
LOC: F3E 14:45 → F2N 09-30 08:35 → F3E 10-01 12:15
PROVIDERS: ADMIT Student in an Organized Health Care Education/Training Program; ATTEND Internal Medicine
PROC: 30233N1 Transfusion of Nonautologous Red Blood Cells into Peripheral Vein, Percutaneous Approach (ICD-10-PCS; 2017-09-30)
PROC: 0DB28ZX Excision of Middle Esophagus, Via Natural or Artificial Opening Endoscopic, Diagnostic (ICD-10-PCS; principal; 2017-09-30 15:15)
PROC: 0DB68ZX Excision of Stomach, Via Natural or Artificial Opening Endoscopic, Diagnostic (ICD-10-PCS; principal; 2017-09-30 15:15)
PROC: 0DJ08ZZ Inspection of Upper Intestinal Tract, Via Natural or Artificial Opening Endoscopic (ICD-10-PCS; principal; 2017-09-30 15:15)
PROC: 0DB78ZX Excision of Stomach, Pylorus, Via Natural or Artificial Opening Endoscopic, Diagnostic (ICD-10-PCS; principal; 2017-09-30 15:15)
DX: B20 Human immunodeficiency virus [HIV] disease (principal); B25.8 Other cytomegaloviral diseases; A09 Infectious gastroenteritis and colitis, unspecified; D62 Acute posthemorrhagic anemia; D63.8 Anemia in other chronic diseases classified elsewhere; K92.1 Melena; R65.10 Systemic inflammatory response syndrome (SIRS) of non-infectious origin without acute organ dysfunction; E87.1 Hypo-osmolality and hyponatremia; R59.0 Localized enlarged lymph nodes; R62.7 Adult failure to thrive; R53.1 Weakness; E43 Unspecified severe protein-calorie malnutrition; Z68.1 Body mass index [BMI] 19.9 or less, adult; B37.0 Candidal stomatitis; B18.1 Chronic viral hepatitis B without delta-agent; K21.9 Gastro-esophageal reflux disease without esophagitis; K44.9 Diaphragmatic hernia without obstruction or gangrene; Z23 Encounter for immunization
CPT/HCPCS: 86360-90; 86635-90; 87385-90; 87449-90; 87497-90; 87536-90; 97116-GP; 97161-GP; 97165-GO; 97535-GO; A9585; G0009; J0456; J1170; J1650; J2405; J2543; J2704; P9016; Q9967

== ENCOUNTER 2017-10-18 22:23 | Inpatient (IN) | payer MEDICAID ==
[2017-10-18] MEDS ORDERED: NS 1,000 ML IV ONE ×2 (22:47)
--- NOTE | 2017-10-18 22:49 | EDPHY ---
H & P Stated Complaint: fever, abd pain Time Seen by Provider: 10/18/17 22:55 HPI/ROS: HPI CHIEF COMPLAINT: Generalized weakness, failure to thrive, fever HISTORY OF PRESENT ILLNESS: Patient is a 56-year-old male, resides in [place], he is followed by infectious disease here, he presents emergency room with generalized weakness and fever to 102.5 at home. He was seen in infectious disease office today. He developed a fever after going home today. He reports that he is weak all over globally does not feel well. He denies any specific complaints he does appear confused. Complains of a global weakness. 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 Family History: ROS REVIEW OF SYSTEMS: A comprehensive 10 point review of systems is otherwise negative aside from elements mentioned in the history of present illness. Exam Constitutional frail-appearing, cachectic, malnourished triage nursing summary reviewed, sleepy, vital signs noted be tachycardic and hypotensive. Eyes normal conjunctivae and sclera, EOMI, PERRLA. HENT normal inspection, atraumatic, additionally thrush, dry mucus membranes, no epistaxis, neck supple/ no meningismus, no raccoon eyes. Respiratory clear to auscultation bilaterally, normal breath sounds, no respiratory distress, no wheezing. Cardiovascular rate normal, regular rhythm, no murmur, no edema, distal pulses normal. Gastrointestinal mild tenderness, no rebound, no guarding, normal bowel sounds, no distension, no pulsatile mass. Genitourinary no CVA tenderness. Musculoskeletal no midline vertebral tenderness, full range of motion, no calf swelling, no tenderness of extremities, no meningismus, good pulses, neurovascularly intact. Skin pink, warm, & dry, no rash, skin atraumatic. Neurologic confused, moves all 4 extremities equally, motor intact, sensory intact, CN II-XII intact, normal cerebellar, normal vision, normal speech. Psychiatric normal mood/affect. Heme/Lymph/Immune no lymphadenopathy. Differential Diagnosis: Includes but is not limited to in a particular order sepsis, bacteremia, end-stage AIDS, failure to thrive, dehydration, electrolyte disturbance, pneumonia, UTI, bacteremia Medical Decision Making: Plan for this patient: IV establishment with fluid bolus, check lactic acid, blood cultures, urinalysis, chest x-ray, blood work. Patient need to be admitted. Re-evaluation: EKG interpretation by me on record in [facility] system. Impression time of EKG 2322, sinus tachycardia rate of 110. Current vitals heart rate 105, pulse ox 95% on room air, blood pressure 98/60. 2339: Spoke with Dr. Montoya. Infectious disease. Discussed the case in detail. Recommends broad-spectrum antibiotics IV vancomycin IV cefepime. Will admit to the hospitalist service for possible acute febrile illness in the setting of end-stage AIDS. EKG interpretation by me on record in [facility] system. Impression time of EKG 2322, sinus tachycardia rate of 110. Otherwise no acute ischemic change. ED x-ray chest two view negative for cardiopulmonary disease. Patient's chemistry reviewed. Low sodium. I have stopped his 1 L bolus. He has gotten 500 cc. Will need to repeat his chemistry after fluid. Make sure it all correct his sodium too fast. Source: Patient, Old records - Personal History Current Tetanus/Diphtheria Vaccine: Yes - Medical/Surgical History Hx Asthma: No Hx Chronic Respiratory Disease: No Hx Diabetes: No Hx Cardiac Disease: No Hx Renal Disease: No Hx Cirrhosis: No Hx Alcoholism: No Hx HIV/AIDS: Yes Hx Splenectomy or Spleen Trauma: No Other PMH: HIV+, AIDS, abdominal CA - Social History Smoking Status: Never smoked Constitutional: Initial Vital Signs Temperature (C) 36.6 C 10/18/17 22:24 Heart Rate 136 H 10/18/17 22:24 Respiratory Rate 18 10/18/17 22:24 Blood Pressure 84/71 L 10/18/17 22:24 O2 Sat (%) 93 10/18/17 22:24 O2 Delivery Mode Room Air Allergies/Adverse Reactions: No Known Allergies Allergy (Verified 10/18/17 22:28) Home Medications: Medication Instructions Recorded Carboxymethylcellulose 1% [Refresh 1 drop EACHEYE DAILY PRN 09/28/17 Celluvisc (*)] Cholecalciferol Vit D3 [Vitamin D3 2,000 units PO DAILY 09/28/17 2000 units tab (OTC)] Dolutegravir Sodium [Tivicay] 50 mg PO DAILY 09/28/17 Emtricitabine/Tenofov Alafenam 1 each PO DAILY 09/28/17 [Descovy 200-25 mg Tablet] Sulfamethox/Tmp 800/160 mg 1 tab PO DAILY 09/28/17 [Bactrim DS] Vitamin B Complex [Vitamin B 1 each PO DAILY 09/28/17 Complex (OTC)] valGANciclovir [ValCYTE] 900 mg PO BIDMEAL 09/28/17 Docusate Sodium [Colace 100 MG (*)] 100 mg PO BID cap 10/05/17 Omeprazole 20 mg PO DAILY #30 capsule. 10/05/17 Sennosides/Docusate Sodium 1 - 2 tab PO BID PRN tab 10/05/17 [Senokot-S] Medical Decision Making - Data Points Laboratory Results: Laboratory Results 10/18/17 23:10 10/18/17 23:10 Medications Given: Discontinued Medications Sodium Chloride (Ns) 1,000 mls @ 0 mls/hr IV EDNOW ONE; Wide Open PRN Reason: Protocol Stop: 10/18/17 22:48 Last Admin: 10/18/17 23:14 Dose: 1,000 mls Vancomycin/Sodium Chloride (Vancomycin 1 Gm (Premix)) 250 mls @ 250 mls/hr IV EDNOW ONE PRN Reason: Protocol Stop: 10/19/17 00:34 Last Admin: 10/18/17 23:46 Dose: 250 mls Departure - Departure Disposition: [facility] Acute Clinical Impression: AIDS, Generalized weakness, FTT (failure to thrive) in adult, Hyponatremia Fever Qualifiers: Fever type: due to other condition Qualified Code(s): R50.81 - Fever presenting with conditions classified elsewhere Condition: Serious
[2017-10-18 23:23] LABS: PLATELET COUNT 375 10^3/uL (150-400)
--- NOTE | 2017-10-18 23:24 | CPEKG ---
Heart Rate: 110 RR Interval: 545 P-R Interval: 160 QRSD Interval: 92 QT Interval: 340 QTC Interval: 461 P Conway: 76 QRS Conway: 69 T Wave Conway: 64 EKG Severity - BORDERLINE ECG - EKG Impression: SINUS TACHYCARDIA EKG Impression: BORDERLINE T ABNORMALITIES, ANT-LAT LEADS Preliminary Awaiting MD Review
[2017-10-18 23:29] LABS: INR 1.13 (0.83-1.16)
[2017-10-18] MEDS ORDERED: VANCOMYCIN HCL/NORMAL SALINE 250 ML IV ONE (23:35)
[2017-10-18] MEDS ORDERED: CEFEPIME HCL 2 GM in NS 100 ML IV ONE (23:35)
[2017-10-18 23:59] LABS: PROTIME(PATIENT) 14.7 SEC (12.0-15.0)
[2017-10-19] MEDS ORDERED: PIPERACILLIN/TAZO 3.375 GM/DEX 50 ML IV SCH (06:00)
[2017-10-19] MEDS ORDERED: diphenhydrAMINE 25 MG CAP PO PRN (09:00)
[2017-10-19] MEDS ORDERED: LORazepam 0.5 MG TAB PO PRN (09:00)
[2017-10-19] MEDS ORDERED: PANTOPRAZOLE SODIUM 40 MG TAB PO ONE (09:58)
[2017-10-19] MEDS ORDERED: ENOXAPARIN 40 MG/0.4 ML SYR SC ONE (09:58)
[2017-10-19] MEDS ORDERED: FLUCONAZOLE 100 MG TAB ONE (09:58)
[2017-10-19] MEDS ORDERED: SULFAMETHOX/TMP 800/160 MG 1 TAB ONE (09:58)
[2017-10-19] MEDS ORDERED: ALBUMIN 25% 100 ML IV ONE (10:30)
[2017-10-19] MEDS ORDERED: ALBUMIN 25% 100 ML SOLN IV ONE ×3 (11:15→21:07)
[2017-10-19] MEDS ORDERED: NS BOLUS 1000 ML (Wide open) IV ONE (12:00)
[2017-10-19] MEDS ORDERED: NS 1,000 ML IV SCH (13:00)
[2017-10-19] MEDS ORDERED: ALBUMIN 25% 100 ML IV SCH (13:30)
[2017-10-19] MEDS ORDERED: NS BOLUS 1000 ML (Wide open) IV PRN (13:30)
[2017-10-19] MEDS ORDERED: NYSTATIN SUSP 500000 UNIT/5 ML UDCUP ONE ×3 (13:41→21:07)
[2017-10-19] MEDS ORDERED: ALTEPLASE 2 MG VIAL IVP PRN (14:00)
[2017-10-19] MEDS ORDERED: HYDROmorphone HCL/NS 0.5 MG/ML SYR ONE (18:42)
--- NOTE | 2017-10-19 22:29 | ASMTCMCOM ---
CM Note CM Note Notes: 10/19/2017 Case Management Note Met pt during rounds this morning. Pt was admitted for fever, AIDS and hypotension. Pt to have CT of abdomen today. Pt lives in [place] but plans to relocate to [place]. Pt has supportive life partner Niles [phone]. Pt is current with [facility]. There is a PT eval pending. Referred pt to [facility] for support after discharge. Case Management d/c poc: to be determined. Home Care vs SNF pending recommendation from PT. Case Management to follow. Date Signed: 10/19/2017 11:59 AM Electronically Signed By:Isaura Gardiner RN
--- NOTE | 2017-10-19 22:31 | GPROG ---
[f rep st] PROGRESS NOTE DATE OF SERVICE: 10/19/2017 SUBJECTIVE: The patient feels better, though his RN noted he became dizzy and lightheaded upon ambul ation from the bathroom back to his bed after having a bowel movement. He denies chest pain or short ness of breath. He continues to complain of abdominal pain. No nausea or vomiting. He is toleratin g p.o. OBJECTIVE: VITAL SIGNS: Stable. GENERAL: Patient is awake, alert, and oriented in no distress. H EENT: Head is atraumatic, normocephalic. Pupils equal, round, react to light. Extraocular movement s intact. Oropharynx is clear. Mucous members are moist. NECK: Supple. There is no JVD. HEART: Regular rate and rhythm. LUNGS: Clear to auscultation bilaterally. ABDOMEN: Soft. He has diffus e tenderness to palpation, worse in bilateral lower quadrants. There are no peritoneal signs. No re bound, rigidity, or guarding. Normoactive bowel sounds are present. EXTREMITIES: Without cyanosis, clubbing, or edema. NEUROLOGIC: Grossly nonfocal. LABORATORY DATA: His white blood cell count is slightly elevated from 14,000-15,000 with slight incr ease in bands. His sodium has improved to 131 from 124. 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 1. Sepsis. Source is unclear. Criteria on arrival included leukocytosis, tachycardia, and hypotens ion. His blood pressure is maintained around a systolic pressure of 90, though he had worsening hypo tension today with a systolic blood pressure in the 70s. I have given him 2 albumin boluses and repe ated his normal saline bolus. A peripherally inserted central catheter line is ordered as he may req uire pressor support. However, his repeat systolic pressure has improved to 90/60 so will continue c lose monitoring. Regarding his source, it is thought to possibly be intraabdominal given his history of cytomegalovirus ileitis. A CT scan with intravenous and by mouth contrast is ordered to ensure t here is no abscess. Appreciate Infectious Disease's assistance. His antibiotics were changed to Zos yn. If his blood pressures do not improve, he will be transferred to the intensive care unit for ini tiation of pressors. 2. Cytomegalovirus ileitis. Continue ganciclovir. 3. Acquired immune deficiency syndrome. Continue antiretrovirals per Infectious Disease. 4. Hyponatremia, improved. 5. Thrush. Continue fluconazole. 6. Severe protein calorie malnutrition. Dietary consultation. 7. Anemia of chronic disease, stable. 8. Gastroesophageal reflux disease. Proton pump inhibitor. DISPOSITION: Continue inpatient status. Anticipated date of discharge is uncertain. /[id number]/MODL
[2017-10-20] MEDS ORDERED: PIPERACILLIN/TAZO 3.375 GM/DEX 50 ML IV SCH (01:00)
[2017-10-20] MEDS: NYSTATIN SUSP 500000 UNIT/5 ML UDCUP PO SCH ×4 (05:21→12:41)
[2017-10-20] MEDS: EMTRICITABINE PO SCH ×2 (05:21→08:31)
[2017-10-20] MEDS: TENOFOV ALAFENAM PO SCH ×2 (05:21→08:31)
[2017-10-20] MEDS: ENOXAPARIN 40 MG/0.4 ML SYR SC SCH (05:22)
[2017-10-20] MEDS: SULFAMETHOX/TMP 800/160 MG 1 TAB PO SCH ×2 (05:22→08:35)
[2017-10-20] MEDS: ALBUMIN 25% 100 ML IV SCH ×3 (05:22→09:15)
[2017-10-20] MEDS: PIPERACILLIN SODIUM/TAZOBACTAM 3.375 GM in D5W 50 ML IV SCH ×2 (05:24→12:35)
[2017-10-20] MEDS: oxyCODONE IR 5 MG TAB PO PRN ×3 (06:35→23:12)
[2017-10-20] MEDS: Dolutegravir Sodium [Tivicay] 50 MG PO SCH (08:27)
[2017-10-20] MEDS: PANTOPRAZOLE SODIUM 40 MG TAB PO SCH (08:34)
[2017-10-20] MEDS ORDERED: PROTAMINE SULFATE 50 MG/5 ML VIAL IVP PRN (08:55)
[2017-10-20] MEDS ORDERED: MIDAZOLAM 2 MG/2 ML VIAL IVP PRN (08:55)
[2017-10-20] MEDS ORDERED: NALOXONE HCL 0.4 MG/ML INJ IVP PRN (08:55)
[2017-10-20] MEDS ORDERED: fentaNYL 100 MCG/2 ML INJ IVP PRN (08:55)
[2017-10-20] MEDS ORDERED: ALTEPLASE 2 MG VIAL IVP PRN (08:55)
[2017-10-20] MEDS ORDERED: FLUMAZENIL 0.5 MG/5 ML MDV IVP PRN (08:55)
[2017-10-20] MEDS ORDERED: MEPERIDINE 25 MG/ML SYR IVP PRN (08:55)
[2017-10-20] MEDS ORDERED: HEPARIN 10,000 UNIT/10 ML MDV (1,000 UNIT/ML) IVP PRN (08:55)
[2017-10-20] MEDS ORDERED: GLUCAGON HCL 1 MG VIAL IVP PRN (08:55)
[2017-10-20] MEDS ORDERED: ceFAZolin 2 GM/DEXTROSE 100 ML IV ONE (08:55)
[2017-10-20] MEDS ORDERED: FLUCONAZOLE 100 MG TAB PO SCH (09:00)
[2017-10-20] MEDS ORDERED: NS 1,000 ML IV SCH (09:00)
[2017-10-20] MEDS ORDERED: fentaNYL 100 MCG/2 ML INJ ONE (09:30)
[2017-10-20] MEDS ORDERED: MIDAZOLAM 2 MG/2 ML VIAL ONE (09:31)
[2017-10-20] MEDS ORDERED: LIDOCAINE 1% 300 MG/30 ML SDV ONE (09:32)
--- NOTE | 2017-10-20 09:43 | PCMIDPN ---
Assessment/Plan: #AIDS: CD4 20 (13%), 09/23 VL 764 on Descovy, dolutegravir. Continue ARV #CMV ileitis undetectable VL 10/11, continue valganciclovir 800mg PO BID, about 3 weeks into therapy #Fever: failure to thrive,now w intra-abd LAD. AFB blood cx :08/09 neg, 09/28 NGTD ; Toxo, crypto, cocci, histo neg. AF since admit. DDX MAC, IRIS, lymphoma - undetectable CMV load 10/11 suggestive of compliance. No skin findings c/w KS. --LN biopsy today --dc zosyn w negative blood cx x [address] findings c/w diverticulitis , perf, etc # Thrush: fluconazole 100mg daily, no evidence of residual on exam today # Social: patient agreed to rehab/SNF meds zosyn 3.375gm IV q6, #2 Valganciclovir 800mg PO BID Bactrim DS 1 PO daily Microbiology 10/18 blood cx (2) NGTD CT: increased retroperitoneal LAD largest 3.6 cm, new splenomegaly, thickening of ileum a bit worse, no obstruction, no perf Subjective: patient endorses compliance @ home. Last week he ran out of Ensure abdominal pain improved . Still w some mid to L sided abdominal pain continued weight loss #3kg Had first BM in 10 days , i.e. no diarrhea Objective: Vital Signs Temp Pulse Resp BP Pulse Ox 36.6 C 73 14 104/67 95 10/20/17 07:58 10/20/17 07:58 10/20/17 07:58 10/20/17 07:58 10/20/17 07:58 Laboratory Results 10/20/17 08:15 10/19/17 10/20/17 10/21/17 05:59 05:59 05:59 Intake Total 500 1700 Output Total 1100 100 Balance 500 600 -100 - Physical Exam General Appearance: alert, no apparent distress, thin EENT: pale conjunctiva, No scleral icterus, No thrush Respiratory: lungs clear, No accessory muscle use Neck: supple Cardiac/Chest: regular rate, rhythm Extremities: No pedal edema, No swelling, No erythema Abdomen: normal bowel sounds, soft, other (discomfort to palpation mid lower abdomen and a bit to the left), No rebound, No peritoneal signs Skin: other (no findings c/w KS), No rash Neuro/Psych: alert, normal mood/affect, oriented x 3 - Time Spent With Patient Time Spent with Patient: greater than 35 minutes Time Spent with Patient: Greater than 35 minutes spent on this patients care, greater than 50% of time spent counseling, educating, and coordinating care regarding the above mentioned plan. ICD10 Worksheet Patient Problems: Problems Problem Status Onset AIDS Acute Failure to thrive in adult Acute Fever Acute Generalized weakness Acute Hyponatremia Acute Abdominal pain Acute CMV (cytomegalovirus) Acute
[2017-10-20] MEDS ORDERED: MIDAZOLAM 2 MG/2 ML VIAL IVP ONE (10:45)
[2017-10-20] MEDS ORDERED: fentaNYL 100 MCG/2 ML INJ IVP ONE (10:45)
--- NOTE | 2017-10-20 10:48 | PDRADPN ---
Radiology Procedure Note Date of Procedure: 10/20/17 Radiologist: Jennifer Chambers Anesthesia: IV Sedation Pre-op Diagnosis: HIV POSITIVE Post-op Diagnosis: SAME Indication: RETROPERITONEAL LYMPH NODES Procedure: CT GUIDED BIOPSY Inf/Abcess present in the surg proc area at time of surgery?: No Complications: NONE IMMEDIATELY
--- NOTE | 2017-10-20 10:48 | PDPROPOC ---
Sedation Plan of Care Sedation Plan of Care: vital signs stable, mental status noted, patient educated of risks, benefits, alternatives, patient can tolerate sedation ASA Classification: ASA 3 Planned drugs: fentanyl, midazolam Mallampati Score: Class 1 Mallampati Reference Image: Patient passed 3-3-2 rule?: Yes
--- NOTE | 2017-10-20 14:58 | PCMIDPN ---
[facility] Patient Name: LALO PARISH Rpt#: [id number] Unit Number: [id number] Attending/ER Physician: Leticia Warner MD Patient Type: ADM Castillo Adm Date/Source: 10/18/17 EMR Discharge Date: Primary Carrier: MEDICAID HEALTH FIRST BUS ESCORT INFECTIOUS DISEASE PROGRESS NOTE Assessment/Plan: 1. History of fever, leukocytosis in patient with AIDS and CMV ileitis: Will discontinue vancomycin and cefepime, and start Piperacillin/tazobactam for possible intra- abdominal process/bowel perforation or abscess related to underlying CMV terminal ileitis. CT scan of the abdomen and pelvis with oral and IV contrast has been ordered, and the patient is agreeable to this. No evidence of pneumonia. 2. Aids: Continue Descovy and Dolutegravir. Avoid cation binders. Medicine should be taken together. 3. Oral candidiasis: Start fluconazole 200 mg p.o. On day 1, then 100 mg p.o. Daily thereafter times 14 days 4. CMV terminal ileitis: Continue Valcyte 900 mg p.o. Twice daily. Recent CMV viral load undetectable consistent with medication adherence (the patient previously had been taking half of the dose) 5. Hyponatremia: Suspect hypovolemic hyponatremia. Patient likely had a component of SIADH previously. Serum cortisol has been normal on previous occasions. Will repeat. 6. History of retroperitoneal lymphadenopathy: Repeat CT scan as per the above. Repeat blood culture for AFB. 7. Disposition: Strongly feel the patient should be in a group home facility. Tomorrow, the patient's primary provider, Joceline Turpin and our social media marketing analyst, Luann Mcgrath will come and have a conversation with the patient and his partner about this. 8. Miscellaneous: Will obtain nutrition and physical therapy consultations. Over 25 min was spent with this patient today. Subjective: Patient well known to our clinic. He is followed by my colleague, Joceline Turpin. 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 He has been on antiretrovirals now for slightly over a month. Recent T-cell count at the end of September was 20 (13%) with a viral load down to 764. The patient was recently hospitalized at [facility] 2 and half weeks ago for failure to thrive. At that time, a CT scan of his abdomen and pelvis showed new, significant periaortic and retroperitoneal lymphadenopathy, which was concerning for possible immune reconstitution secondary to underlying CMV, verses a new opportunistic infections such as JOAN. Of note, blood cultures x2 for AFB have been negative. The patient ultimately did better, was gaining weight and wanted to go home. Patient lives in [place], and I strongly suspect his living situation is suboptimal for his multiple health issues. Patient was seen yesterday in clinic by Joceline, and was afebrile. Apparently, he decompensated when he went home. His partner reported a temperature of 103 degrees and confusion, so he was taken back to [facility]. Here, his sodium was even lower than it normally is at 124. He was admitted for further evaluation and treatment. Of note, the [place] [id number] on admission. He was started on vancomycin and cefepime. Speaking with the patient today, he states he feels much better being in the hospital. He continues to have intermittent right lower quadrant abdominal pain, which he says comes and goes. Of note, the patient was recently started on narcotics to help control the pain (an appropriate use of narcotics in my clinical opinion), but he says the "pain comes right back". It is not associated with nausea or vomiting. He states he has been constipated and has not had a bowel movement in the past week. He denies headache, visual disturbance, chest pain, cough, shortness of breath, dysuria, rash, or other. No unusual exposures. He does not have any pets. Objective: Afebrile Descovy/Dolutegravir Bactrim DS daily Valcyte 900 mg p.o. Twice daily Vancomycin/cefepime day 1 Vital Signs Temp Pulse Resp BP Pulse Ox 36.6 C 77 18 83/59 L 99 10/19/17 07:31 10/19/17 07:31 10/19/17 07:31 10/19/17 07:31 10/19/17 07:31 Laboratory Results 10/19/17 04:00 10/19/17 04:00 10/18/17 10/19/17 10/20/17 05:59 05:59 05:59 Intake Total 500 Output Total 600 Balance 500 -600 October 11 CMV viral load undetectable - Physical Exam General Appearance: no apparent distress, cachetic EENT: thrush Respiratory: lungs clear Cardiac/Chest: tachycardia Abdomen: tender (Right lower quadrant) Skin: No rash Neuro/Psych: oriented x 3 ICD10 Worksheet Patient Problems: Problems Problem Status Onset AIDS Acute Failure to thrive in adult Acute Fever Acute Generalized weakness Acute Hyponatremia Acute Abdominal pain Acute CMV (cytomegalovirus) Acute *This report may have been compiled using a voice recognition system, and might contain typographical errors and blanks.* Marley Kamara MD 10/19/17 0902 <Electronically signed by Marley Kamara MD> T: MAYCOL 10/19/17842 CC:
--- NOTE | 2017-10-20 14:59 | HOSPPROG ---
[facility] Patient Name: LALO PARISH Rpt#: [id number] Unit Number: [id number] Attending/ER Physician: Leticia Warner MD Patient Type: ADM Castillo Adm Date/Source: 10/18/17 EMR Discharge Date: Primary Carrier: MEDICAID HEALTH FIRST ANALYST Documented by: Kristine Corral DO on Date/Time:10/19/17 0947 HOSPITALIST PROGRESS NOTE Hospitalist Progress Note Assessment/Plan: Sepsis presenting with leukocytosis, fever, hypotension - source unclear. Query intra-abdominal process with h/o CMV ileitis. -CT abd/pelvis with po / IV contrast per ID -atbx changed to Zosyn per ID -Albumin bolus for persistent mild hypotension, may need to consider central line and pressors in ICU if BP doesn't improve AIDS - cont anti-virals per ID Thrush - cont fluconazole CMV ileitis - cont gamciclovir SPCD - dietary ACD - stable, no e/o active bleeding Hyponatremia - likely hypovolemic, Na improved from 124--> 131 with NS. -follow GERD - cont ppi DVT PPLX - Full code Dispo - cont inpt Subjective: Pt feels a little better. No more fevers. C/O abdominal pain, RLQ. No N/V. Tolerating po. Objective: Vital Signs Temp Pulse Resp BP Pulse Ox 36.6 C 77 18 83/59 L 99 10/19/17 07:31 10/19/17 07:31 10/19/17 07:31 10/19/17 07:31 10/19/17 07:31 Laboratory Results 10/19/17 04:00 10/19/17 04:00 10/18/17 10/19/17 10/20/17 05:59 05:59 05:59 Intake Total 500 Output Total 600 Balance 500 -600 PT 14.7 SEC (12.0-15.0) 10/18/17 23:10 INR 1.13 (0.83-1.16) 10/18/17 23:10 - Physical Exam Constitutional: no apparent distress Eyes: PERRL Ears, Nose, Mouth, Throat: moist mucous membranes Cardiovascular: regular rate and rhythym Respiratory: no respiratory distress Gastrointestinal: normoactive bowel sounds, other (soft, mild diffuse TTP without r/r/g +BS) Skin: warm Musculoskeletal: full muscle strength Neurologic: AAOx3 Psychiatric: interacting appropriately ICD10 Worksheet Patient Problems: Problems Problem Status Onset AIDS Acute Failure to thrive in adult Acute Fever Acute Generalized weakness Acute Hyponatremia Acute Abdominal pain Acute CMV (cytomegalovirus) Acute *This report may have been compiled using a voice recognition system, and might contain typographical errors and blanks.* Kristine Corral DO 10/19/17 0957 <Electronically signed by Kristine Corral DO> 6 T: MARCIANO 10/19/17946 CC:
--- NOTE | 2017-10-20 16:48 | PDMN ---
Medical Necessity Medical necessity: est los>2mn for sepsis w/leukocytosis, fever, and hypotension , of unknown etiology, r/o intra-abdominal process w/h/o CMV ileitis; admit for imaging, IV abx, ID consult; comorbid AIDS, ACD, hyponatremia, and thrush; per order and H&P 10/19/17
--- NOTE | 2017-10-20 16:59 | ASMTCMCOM ---
CM Note CM Note Notes: Pts case discussed in morning rounds. MDs are recommending SNF. Pt is agreeable. CM compelted ULTC-100. Pt is agreeable to 30 days stay. CM spent 30 mins w/ pt providing emotional support. Referrals made to the [place] area per request of pt. CM to follow. Plan: SNF Date Signed: 10/20/2017 04:58 PM Electronically Signed By:JOHN Wen
[2017-10-20] MEDS: HYDROmorphone HCL/NS 0.5 MG/ML SYR IVP PRN (18:35)
[2017-10-20] MEDS: SENNOSIDES 1 TAB PO SCH ×2 (18:36→20:01)
--- NOTE | 2017-10-20 19:15 | HOSPPROG ---
Hospitalist Progress Note Assessment/Plan: Sepsis (HR, leukocytosis, hypotension) - source initially unclear, but abdominal CT showed increased size of lymph nodes. Intra-abdominal lymph node biopsy today, considering MAC or AFB. Discussed with ID. -d/c Zosyn per ID -follow up on path / cultures from LN biopsy Hypotension - responded to Albumin boluses, given q6h x4, will d/c now and cont IVF's CMV ileitis - cont ganciclovir AIDS - cont anti-retrovirals per ID Hyponatremia - Improving, follow. Thrush - cont fluconazole GERD - cont PPI Anemia - no e/o active bleeding, follow. DVT PPLX - resume Lovenox tomorrow given procedure today Full code Dispo - cont inpt, will likely need SNF Subjective: Pt feels better, though still c/o abdominal pain. No more fevers. No CP, SOB. No N/V. Taking little po. Objective: Vital Signs Temp Pulse Resp BP Pulse Ox 36.9 C 88 16 118/79 99 10/20/17 16:00 10/20/17 16:00 10/20/17 16:00 10/20/17 16:00 10/20/17 16:00 Microbiology 10/20/17 07:37 Mycobacterial Smear (FRANK) - Final Other - Lymph Node 10/20/17 07:37 Mycobacterial Smear (FRANK) - Final Other - Other 10/20/17 07:37 Gram Stain - Final Other - Lymph Node Laboratory Results 10/20/17 08:15 10/19/17 10/20/17 10/21/17 05:59 05:59 05:59 Intake Total 1700 960 Output Total 1100 725 Balance 600 235 PT 14.7 SEC (12.0-15.0) 10/18/17 23:10 INR 1.13 (0.83-1.16) 10/18/17 23:10 - Physical Exam Constitutional: no apparent distress, chronically ill appearing Eyes: PERRL Ears, Nose, Mouth, Throat: moist mucous membranes Cardiovascular: regular rate and rhythym Respiratory: no respiratory distress, clear to auscultation Gastrointestinal: other (soft, diffuse TTP, no r/r/g, +BS) Skin: warm Musculoskeletal: full muscle strength Neurologic: AAOx3 Psychiatric: interacting appropriately ICD10 Worksheet Patient Problems: Problems Problem Status Onset AIDS Acute Failure to thrive in adult Acute Fever Acute Generalized weakness Acute Hyponatremia Acute Abdominal pain Acute CMV (cytomegalovirus) Acute
[2017-10-21 04:56] LABS: PLATELET COUNT 346 10^3/uL (150-400)
[2017-10-21] MEDS: oxyCODONE IR 5 MG TAB PO PRN (07:49)
--- NOTE | 2017-10-21 08:34 | PCMIDPN ---
Assessment/Plan: 1. 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 Tuberculosis is extremely unlikely, therefore I feel comfortable starting anti MAC therapy with ethambutol 800 mg daily and azithromycin 600 mg p.o. Daily. Of note, patient received MAC prophylaxis early on with azithromycin 1200 mg p. O. Weekly, but this was only for less than 2 weeks. Doubt azithromycin resistance has developed. Will need to await for susceptibilities of the organism once it grows. I do not feel that he needs rifabutin, and two drug therapy should suffice presently. Of note , will attempt to get ophthalmological evaluation during this hospitalization to follow up HIV cotton wool spots seen in his retinas. Will also need baseline color testing in the setting of prolonged ethambutol. 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 Twice daily. Not ready to back down to maintenance therapy yet 3. Aids: Continue Dolutegravir and Descovy as is. 4. Prophylaxis: Continue Bactrim DS daily for Pneumocystis prophylaxis 5. History of oral candidiasis: This has resolved. Given potential for prolonged QT in the setting of concomitant fluconazole and azithromycin, will discontinue fluconazole and start clotrimazole troches 5 times per day. 6. Disposition: Patient is agreeable to a snf facility. This is in the works. Over 25 min was spent with this patient today. 10/21/17 08:35 Subjective: Events of past 24 hr reviewed. Patient had lymph node aspiration; AFB stain was positive suggesting probable intra-abdominal MAC. Patient is relieved to have a diagnosis and complains of ongoing abdominal pain. No nausea or vomiting. No diarrhea. Objective: Bactrim DS daily Fluconazole 100 mg p. O. Daily Descovy/Dolutegravir daily Valcyte 900 mg p.o. Twice daily No fever Vital Signs Temp Pulse Resp BP Pulse Ox 36.9 C 93 14 130/90 H 97 10/21/17 07:34 10/21/17 07:34 10/21/17 07:34 10/21/17 07:34 10/21/17 07:34 Microbiology 10/20/17 07:37 Mycobacterial Smear (FRANK) - Final Other - Lymph Node 10/20/17 07:37 Mycobacterial Smear (FRANK) - Final Other - Other 10/20/17 07:37 Gram Stain - Final Other - Lymph Node Laboratory Results 10/21/17 04:00 10/21/17 04:00 10/20/17 10/21/17 10/22/17 05:59 05:59 05:59 Intake Total 1700 2110 Output Total 1100 2325 Balance 600 -215 Lymph node aspirate: AFB positive, culture pending, PCR for TB sent to [facility] - Physical Exam General Appearance: no apparent distress, cachetic EENT: pharynx normal, No thrush Respiratory: lungs clear Cardiac/Chest: regular rate, rhythm Abdomen: other (Diffusely tender, but no peritoneal signs.) Skin: No rash ICD10 Worksheet Patient Problems: Problems Problem Status Onset AIDS Acute Failure to thrive in adult Acute Fever Acute Generalized weakness Acute Hyponatremia Acute Abdominal pain Acute CMV (cytomegalovirus) Acute
[2017-10-21] MEDS: Dolutegravir Sodium [Tivicay] 50 MG PO SCH (09:28)
[2017-10-21] MEDS: SENNOSIDES 1 TAB PO SCH ×2 (09:28→22:37)
[2017-10-21] MEDS: PANTOPRAZOLE SODIUM 40 MG TAB PO SCH (09:28)
[2017-10-21] MEDS: TENOFOV ALAFENAM PO SCH (09:28)
[2017-10-21] MEDS: EMTRICITABINE PO SCH (09:28)
[2017-10-21] MEDS: SULFAMETHOX/TMP 800/160 MG 1 TAB PO SCH (09:28)
[2017-10-21] MEDS: HYDROmorphone HCL/NS 0.5 MG/ML SYR IVP PRN (10:03)
[2017-10-21] MEDS: ENOXAPARIN 40 MG/0.4 ML SYR SC SCH (10:39)
[2017-10-21] MEDS: CLOTRIMAZOLE 10 MG TROCHE PO SCH ×4 (10:39→22:38)
--- NOTE | 2017-10-21 11:36 | HOSPPROG ---
Hospitalist Progress Note Assessment/Plan: Sepsis (HR, leukocytosis, hypotension) - source initially unclear, but abdominal CT showed increased size of lymph nodes (pers reviewed and interp), discussed with ID. Intra-abdominal lymph node biopsy yesterday +AFB, but ID more suspicious for intra-abdominal MAC. -MAC therapy per ID -follow up on path / cultures Hypotension - responded to Albumin boluses, given q6h x4 and IVF's. BP better, taking po -d/c IVF's and follow, prn boluses CMV ileitis - slightly improved on recent CT, cont ganciclovir -needs better pain control, add oxycontin 10 mg bid and cont prn oxycodone AIDS - cont anti-retrovirals per ID Hyponatremia - chronic, near baseline of low 130's Thrush - fluconazole d/c'd per ID, start clotrimazole troches GERD - cont PPI Anemia - no e/o active bleeding, follow. DVT PPLX - Lovenox Full code Dispo - cont inpt, will likely need SNF. Discussed with palliative care team, pt and partner open to outpt palliative care, ordered. Subjective: Pt c/o poor pain control, abdominal pain. No N/V. No fevers/ chills. Taking po fairly well. Objective: Vital Signs Temp Pulse Resp BP Pulse Ox 37.4 C 95 16 110/85 H 95 10/21/17 11:19 10/21/17 11:19 10/21/17 11:19 10/21/17 11:19 10/21/17 11:19 Microbiology 10/20/17 07:37 Gram Stain - Final Other - Lymph Node 10/20/17 07:37 Mycobacterial Smear (FRANK) - Final Other - Lymph Node 10/20/17 07:37 Mycobacterial Smear (FRANK) - Final Other - Other Laboratory Results 10/21/17 04:00 10/21/17 04:00 10/20/17 10/21/17 10/22/17 05:59 05:59 05:59 Intake Total 1700 2110 Output Total 1100 2325 175 Balance 600 -215 -175 PT 14.7 SEC (12.0-15.0) 10/18/17 23:10 INR 1.13 (0.83-1.16) 10/18/17 23:10 - Physical Exam Constitutional: no apparent distress, chronically ill appearing Eyes: PERRL Ears, Nose, Mouth, Throat: moist mucous membranes Cardiovascular: regular rate and rhythym Respiratory: no respiratory distress Gastrointestinal: normoactive bowel sounds, other (soft, nd, +diffuse TTP, no r/ r/g) Skin: warm Musculoskeletal: full muscle strength Neurologic: AAOx3 Psychiatric: interacting appropriately ICD10 Worksheet Patient Problems: Problems Problem Status Onset AIDS Acute Failure to thrive in adult Acute Fever Acute Generalized weakness Acute Hyponatremia Acute Abdominal pain Acute CMV (cytomegalovirus) Acute
[2017-10-21] MEDS: ETHAMBUTOL HCL 400 MG TAB PO SCH (12:36)
[2017-10-21] MEDS: AZITHROMYCIN 600 MG TAB PO SCH (12:36)
[2017-10-21] MEDS: DRONABINOL 2.5 MG CAP PO SCH ×2 (12:36→22:37)
--- NOTE | 2017-10-21 13:49 | ASMTCMCOM ---
CM Note CM Note Notes: Pts case discussed in morning rounds. Additional SNF referrals made. All the SNFs in [place] has denied pt. MIKEY contacted [facility] [employer] to start the LTC application. CM to follow. Plan: SNF Date Signed: 10/21/2017 01:48 PM Electronically Signed By:JOHN Wen
--- NOTE | 2017-10-21 13:49 | ASMTCMCOM ---
CM Note CM Note Notes: Praful met w/ pt to complete MDPOA paperwork. Pt is interested in having outpatient palliative. CM sent a referral to [facility]. CM to follow. Date Signed: 10/21/2017 01:49 PM Electronically Signed By:JOHN Wen
[2017-10-22 04:26] LABS: PLATELET COUNT 300 10^3/uL (150-400)
[2017-10-22] MEDS: CLOTRIMAZOLE 10 MG TROCHE PO SCH ×5 (06:17→23:06)
[2017-10-22] MEDS: oxyCODONE IR 5 MG TAB PO PRN (06:33)
--- NOTE | 2017-10-22 08:47 | HOSPPROG ---
Hospitalist Progress Note Assessment/Plan: Sepsis (HR, leukocytosis, hypotension) - Intra-abdominal lymph node biopsy + AFB. Discussed with ID, most likely disseminated MAC as recent BCx's just turned positive for AFB. -MAC therapy per ID, ethambutol, azithromycin -follow path / cultures Hypotension - responded to Albumin boluses, given q6h x4 and IVF's. BP better, taking po -d/c IVF's yest, prbc's today will be good volume awning hanger helper CMV ileitis - slightly improved on recent CT, cont ganciclovir -pain control improved with addition oxycontin 10 mg bid, cont prn oxycodone AIDS - cont anti-retrovirals per ID Hyponatremia - chronic, near baseline of low 130's Thrush - fluconazole d/c'd per ID, start clotrimazole troches GERD - cont PPI Anemia - hgb trending down, a bit symptomatic -will transfuse 1 u prbc's DVT PPLX - Lovenox Full code Dispo - cont inpt, will likely need SNF. Discussed with palliative care team, pt and partner open to outpt palliative care, ordered. Subjective: Pt feels much better today, pain controlled. No abdominal pain. No N/V. Taking some po. Objective: Vital Signs Temp Pulse Resp BP Pulse Ox 36.8 C 92 18 108/70 95 10/22/17 07:46 10/22/17 07:46 10/22/17 07:46 10/22/17 07:46 10/22/17 07:46 Microbiology 10/20/17 07:37 Gram Stain - Final Other - Lymph Node Laboratory Results 10/22/17 06:15 10/21/17 04:00 10/21/17 10/22/17 10/23/17 05:59 05:59 05:59 Intake Total 2110 950 Output Total 2325 1325 Balance -215 -375 PT 14.7 SEC (12.0-15.0) 10/18/17 23:10 INR 1.13 (0.83-1.16) 10/18/17 23:10 - Physical Exam Constitutional: no apparent distress, chronically ill appearing Eyes: PERRL Ears, Nose, Mouth, Throat: moist mucous membranes Cardiovascular: regular rate and rhythym Respiratory: no respiratory distress, clear to auscultation Gastrointestinal: normoactive bowel sounds, soft, non-tender abdomen Skin: warm Musculoskeletal: full muscle strength Neurologic: AAOx3 Psychiatric: interacting appropriately ICD10 Worksheet Patient Problems: Problems Problem Status Onset AIDS Acute Failure to thrive in adult Acute Fever Acute Generalized weakness Acute Hyponatremia Acute Abdominal pain Acute CMV (cytomegalovirus) Acute
--- NOTE | 2017-10-22 08:49 | PCMIDPN ---
Assessment/Plan: 1. 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 Patient started on MAC therapy in the form of ethambutol 800 mg p.o. Daily and azithromycin 600 mg p.o. Daily. Susceptibilities are pending, as is TB PCR at [facility]. Interestingly, a blood culture done September 28 is now positive for AFB as well. 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 Twice daily. Not ready to back down to maintenance therapy yet 3. Aids: Continue Dolutegravir and Descovy as is. 4. Prophylaxis: Continue Bactrim DS daily for Pneumocystis prophylaxis 5. Oral candidiasis: Continue clotrimazole troches. 6. Disposition: Patient is agreeable to a [place] [facility] facility. This is in the works. 7. 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 He will get a unit of blood today. Recent labs with vitamin B12 , folate, and testosterone were within normal limits. 10/22/17 08:50 Subjective: Walking around with physical therapy. Says his pain is much better. No nausea , vomiting or diarrhea. Apparently Dr. Nunes of Ophthalmology was in to see the patient this morning for baseline color testing in the setting of ethambutol therapy. By report everything was"fine." Objective: Bactrim DS daily Valcyte 900 mg p.o. Twice daily Azithromycin 600 mg daily Ethambutol 800 mg daily Clotrimazole troches Descovy/Dolutegravir daily No fever Vital Signs Temp Pulse Resp BP Pulse Ox 36.8 C 92 18 108/70 95 10/22/17 07:46 10/22/17 07:46 10/22/17 07:46 10/22/17 07:46 10/22/17 07:46 Microbiology 10/20/17 07:37 Gram Stain - Final Other - Lymph Node Laboratory Results 10/22/17 06:15 10/21/17 04:00 10/21/17 10/22/17 10/23/17 05:59 05:59 05:59 Intake Total 9688 359 Output Total 4472 6477 Balance -215 -624 Blood culture September 28 positive for AFB, sent to [facility] - Physical Exam General Appearance: no apparent distress, cachetic Skin: No rash ICD10 Worksheet Patient Problems: Problems Problem Status Onset AIDS Acute Failure to thrive in adult Acute Fever Acute Generalized weakness Acute Hyponatremia Acute Abdominal pain Acute CMV (cytomegalovirus) Acute
[2017-10-22] MEDS: SENNOSIDES 1 TAB PO SCH ×2 (09:46→20:11)
[2017-10-22] MEDS: SULFAMETHOX/TMP 800/160 MG 1 TAB PO SCH (09:47)
[2017-10-22] MEDS: DRONABINOL 2.5 MG CAP PO SCH ×2 (09:47→20:11)
[2017-10-22] MEDS: PANTOPRAZOLE SODIUM 40 MG TAB PO SCH (09:47)
[2017-10-22] MEDS: ENOXAPARIN 40 MG/0.4 ML SYR SC SCH (09:47)
[2017-10-22] MEDS: EMTRICITABINE PO SCH (09:48)
[2017-10-22] MEDS: Dolutegravir Sodium [Tivicay] 50 MG PO SCH (09:48)
[2017-10-22] MEDS: TENOFOV ALAFENAM PO SCH (09:48)
[2017-10-22] MEDS: ETHAMBUTOL HCL 400 MG TAB PO SCH (12:20)
[2017-10-22] MEDS: AZITHROMYCIN 600 MG TAB PO SCH (12:22)
[2017-10-22] MEDS: ACETAMINOPHEN 500 MG TAB PO PRN (13:07)
--- NOTE | 2017-10-22 15:53 | ASMTCMCOM ---
CM Note CM Note Notes: Pts case discussed in morning rounds. CM met w/ pt for dispo planning. CM informed pt that the [place] facilities have turned him down. Pt is agreeable to going to a [facility]. CM spoke to Bernardino at [facility]. Bernardino reports that a liaison will have to come and do an on site for approval. CM to follow. Plan: SNF Date Signed: 10/22/2017 03:52 PM Electronically Signed By:JOHN Wen
[2017-10-23] MEDS: CLOTRIMAZOLE 10 MG TROCHE PO SCH ×5 (06:01→20:32)
[2017-10-23] MEDS: EMTRICITABINE PO SCH (09:08)
[2017-10-23] MEDS: TENOFOV ALAFENAM PO SCH (09:08)
[2017-10-23] MEDS: Dolutegravir Sodium [Tivicay] 50 MG PO SCH (09:09)
[2017-10-23] MEDS: DRONABINOL 2.5 MG CAP PO SCH ×2 (09:12→20:32)
[2017-10-23] MEDS: SULFAMETHOX/TMP 800/160 MG 1 TAB PO SCH (09:12)
[2017-10-23] MEDS: SENNOSIDES 1 TAB PO SCH ×2 (09:12→20:32)
[2017-10-23] MEDS: ENOXAPARIN 40 MG/0.4 ML SYR SC SCH (09:13)
[2017-10-23] MEDS: PANTOPRAZOLE SODIUM 40 MG TAB PO SCH (09:18)
[2017-10-23] MEDS: oxyCODONE IR 5 MG TAB PO PRN ×2 (10:22→18:03)
[2017-10-23] MEDS ORDERED: LACTULOSE 20 GM/30 ML UDCUP PO PRN (10:49)
[2017-10-23] MEDS ORDERED: MAGNESIUM HYDROXIDE 30 ML UDCUP PO PRN (10:49)
[2017-10-23] MEDS ORDERED: BISACODYL 10 MG SUPP PR PRN (10:49)
[2017-10-23] MEDS ORDERED: POLYETHYLENE GLYCOL 3350 17 GM PKT PO PRN (10:49)
--- NOTE | 2017-10-23 10:50 | HOSPPROG ---
Hospitalist Progress Note Assessment/Plan: Sepsis (HR, leukocytosis, hypotension) - Intra-abdominal lymph node biopsy + AFB. Discussed with ID, most likely disseminated MAC as recent BCx's just turned positive for AFB. -MAC therapy per ID, ethambutol, azithromycin -follow path / cultures Hypotension - responded to Albumin boluses, given q6h x4 and IVF's. BP better, taking po -s/p 1 u prbc's yesterday CMV ileitis - slightly improved on recent CT, cont ganciclovir -pain control improved with addition oxycontin 10 mg bid, cont prn oxycodone AIDS - cont anti-retrovirals per ID Hyponatremia - chronic, near baseline of low 130's Thrush - fluconazole d/c'd per ID, start clotrimazole troches GERD - cont PPI Anemia - hgb trending down, a bit symptomatic -will transfuse 1 u prbc's DVT PPLX - Lovenox Full code Dispo - cont inpt, will likely need SNF. Discussed with palliative care team, pt and partner open to outpt palliative care, ordered. Subjective: Pt c/o pain today, worse than yesterday, in left side of abdomen where he typically gets pain. No N/V. No fevers. No CP or SOB. Constipated. Objective: Vital Signs Temp Pulse Resp BP Pulse Ox 36.8 C 78 15 100/68 94 10/23/17 07:30 10/23/17 07:30 10/23/17 07:30 10/23/17 07:30 10/23/17 07:30 Microbiology 10/20/17 07:37 Gram Stain - Final Other - Lymph Node Tissue Culture - Final 10/20/17 07:37 Mycobacterial Smear (FRANK) - Final Other - Lymph Node 10/20/17 07:37 Mycobacterial Smear (FRANK) - Final Other - Other Laboratory Results 10/22/17 06:15 10/21/17 04:00 10/22/17 10/23/17 10/24/17 05:59 05:59 05:59 Intake Total 950 1100 540 Output Total 1325 1350 Balance -375 -250 540 PT 14.7 SEC (12.0-15.0) 10/18/17 23:10 INR 1.13 (0.83-1.16) 10/18/17 23:10 - Physical Exam Constitutional: no apparent distress, chronically ill appearing Eyes: PERRL Ears, Nose, Mouth, Throat: moist mucous membranes Cardiovascular: regular rate and rhythym Respiratory: no respiratory distress, clear to auscultation Gastrointestinal: normoactive bowel sounds, soft, non-tender abdomen Skin: warm Musculoskeletal: full muscle strength Neurologic: AAOx3 Psychiatric: interacting appropriately ICD10 Worksheet Patient Problems: Problems Problem Status Onset AIDS Acute Failure to thrive in adult Acute Fever Acute Generalized weakness Acute Hyponatremia Acute Abdominal pain Acute CMV (cytomegalovirus) Acute
[2017-10-23] MEDS: AZITHROMYCIN 600 MG TAB PO SCH (12:57)
[2017-10-23] MEDS: ETHAMBUTOL HCL 400 MG TAB PO SCH (13:00)
--- NOTE | 2017-10-23 14:06 | PCMIDPN ---
Assessment/Plan: 1. 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 Baseline color testing was fine. Appreciate Dr. Nunes's assistance. Abdominal pain well controlled. 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 Twice daily. Not ready to back down to maintenance therapy yet. 3. Aids: Continue Dolutegravir and Descovy as is. 4. Prophylaxis: Continue Bactrim DS daily for Pneumocystis prophylaxis 5. Oral candidiasis: Continue clotrimazole troches. 6. Disposition: Patient is agreeable to a [facility] facility. This is in the works. He will probably need to go to [place], as all facilities in [place] declined him for unclear reasons. 7. 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 Status post unit of packed red cells yesterday. Recent labs with vitamin B12, folate, and testosterone were within normal limits. Subjective: In good spirits. Tells me"I am eating a bunch."Had a small bowel movement earlier today. Abdominal pain under control. No blurred vision, sore throat nausea, vomiting or new rash. Objective: Ethambutol 800 mg daily Azithromycin 600 mg daily Descovy/Dolutegravir daily Clotrimazole troches his 5 times per day Valcyte 900 mg p.o. Twice daily Bactrim DS daily No fevers Vital Signs Temp Pulse Resp BP Pulse Ox 36.8 C 80 18 104/67 96 10/23/17 12:00 10/23/17 12:00 10/23/17 12:00 10/23/17 12:00 10/23/17 12:00 Microbiology 10/20/17 07:37 Gram Stain - Final Other - Lymph Node Tissue Culture - Final 10/20/17 07:37 Mycobacterial Smear (FRANK) - Final Other - Lymph Node 10/20/17 07:37 Mycobacterial Smear (FRANK) - Final Other - Other Laboratory Results 10/22/17 06:15 10/21/17 04:00 10/22/17 10/23/17 10/24/17 05:59 05:59 05:59 Intake Total 950 1100 540 Output Total 1325 1350 100 Balance -375 -250 440 MTB PCR on lymph node negative Serum cryptococcal antigen negative blood culture May 22nd positive for AFB - Physical Exam General Appearance: no apparent distress, cachetic EENT: pharynx normal, No thrush Respiratory: lungs clear Cardiac/Chest: regular rate, rhythm Extremities: other (PICC line right upper extremity looks fine with no swelling or erythema) Abdomen: non-tender, soft Skin: No rash Neuro/Psych: oriented x 3 ICD10 Worksheet Patient Problems: Problems Problem Status Onset AIDS Acute Failure to thrive in adult Acute Fever Acute Generalized weakness Acute Hyponatremia Acute Abdominal pain Acute CMV (cytomegalovirus) Acute
[2017-10-24] MEDS: CLOTRIMAZOLE 10 MG TROCHE PO SCH ×5 (05:45→21:35)
[2017-10-24] MEDS: HYDROmorphone HCL/NS 0.5 MG/ML SYR IVP PRN (09:03)
[2017-10-24] MEDS: SULFAMETHOX/TMP 800/160 MG 1 TAB PO SCH (09:07)
[2017-10-24] MEDS: PANTOPRAZOLE SODIUM 40 MG TAB PO SCH (09:07)
[2017-10-24] MEDS: SODIUM CHLORIDE 1,000 MG TAB PO SCH ×2 (09:08→18:15)
[2017-10-24] MEDS: ENOXAPARIN 40 MG/0.4 ML SYR SC SCH (09:08)
[2017-10-24] MEDS: SENNOSIDES 1 TAB PO SCH ×2 (09:08→21:35)
[2017-10-24] MEDS: DRONABINOL 2.5 MG CAP PO SCH ×2 (09:08→21:35)
[2017-10-24] MEDS: EMTRICITABINE PO SCH (09:10)
[2017-10-24] MEDS: TENOFOV ALAFENAM PO SCH (09:10)
[2017-10-24] MEDS: Dolutegravir Sodium [Tivicay] 50 MG PO SCH (09:11)
--- NOTE | 2017-10-24 09:25 | PCMIDPN ---
Assessment/Plan: #AIDS: CD4 20 (13%), 09/23 VL 764 on Descovy, dolutegravir. Continue ARV. Awaiting repeat VL #CMV ileitis undetectable VL 10/11, continue valganciclovir 800mg PO BID --check ANC and creatinine on Wednesday #dMAC, new dx, started empiric therapy 2 days ago. 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 Baseline color testing was performed and was normal. # Social: awaiting placement rehab/SNF, looking for Medicaid bed --DC PICC line at time of discharge meds Valganciclovir 800mg PO BID Bactrim DS 1 PO daily zithromax 600mg PO Daily ethambutol 800mg daily descovy 20/25mg PO daily dolutegravir 50mg daily Microbiology 10/18, 10/19 blood cx (2) Neg 10/[address]: smear +AFB, PCR negative for TB Subjective: Increased abdominal pain today. Minimal BMs. Objective: Vital Signs Temp Pulse Resp BP Pulse Ox 36.8 C 80 16 97/74 L 93 10/24/17 06:09 10/24/17 06:09 10/24/17 06:09 10/24/17 06:09 10/24/17 06:09 Microbiology 10/20/17 07:37 Gram Stain - Final Other - Lymph Node Tissue Culture - Final Laboratory Results 10/24/17 05:55 10/24/17 05:55 10/23/17 10/24/17 10/25/17 05:59 05:59 05:59 Intake Total 1100 1240 500 Output Total 1350 1275 Balance -250 -35 500 - Physical Exam General Appearance: alert, no apparent distress Respiratory: lungs clear, No accessory muscle use Neck: supple Cardiac/Chest: regular rate, rhythm Abdomen: normal bowel sounds, non-tender, soft, other (Mild discomfort to palpation of the bilateral lower quadrants, no peritoneal signs), No distended Skin: pallor, No rash Neuro/Psych: alert, normal mood/affect, oriented x 3 - Line/s RUE PICC Lines: No drainage, No erythema ICD10 Worksheet Patient Problems: Problems Problem Status Onset AIDS Acute Failure to thrive in adult Acute Fever Acute Generalized weakness Acute Hyponatremia Acute Abdominal pain Acute CMV (cytomegalovirus) Acute
--- NOTE | 2017-10-24 10:35 | HOSPPROG ---
Hospitalist Progress Note Assessment/Plan: 56 yo male with h/o AIDS, CMV ileitis presented with sepsis thought to be intra- abdominal source Sepsis (HR, leukocytosis, hypotension) - Intra-abdominal lymph node biopsy + AFB. Discussed with ID, treating for disseminated MAC as recent BCx's just turned positive for AFB. -MAC therapy per ID, ethambutol, azithromycin -follow path / cultures Hypotension - responded to Albumin boluses, given q6h x4 and IVF's. BP better, po intake improved CMV ileitis - slightly improved on recent CT, cont ganciclovir -pain control improved with addition of oxycontin 10 mg bid, cont prn oxycodone Altered mental status - occurred after administration of 1 mg Ativan, which has been on MAR since admission, but he hasn't received until today. Also consider symptoms from down-trending sodium -ativan d/c'd -hyponatremia management as below AIDS - cont anti-retrovirals per ID Hyponatremia - Na 131 --> 128, suspect needs solute -fluid restrict to 1.5 L, add salt tabs, follow Thrush - fluconazole d/c'd per ID, now on clotrimazole troches GERD - cont PPI Anemia - chronic, stable after transfusion -s/p 1 u prbc's DVT PPLX - Lovenox Full code Dispo - cont inpt, will likely need SNF. Discussed with palliative care team, pt and partner open to outpt palliative care, ordered. CM working on SNF options Subjective: Pt is a bit altered today, seems drug affected. This has improved throughout the day. Pain controlled at this time. No fevers/chills. No nausea / vomiting. Objective: Vital Signs Temp Pulse Resp BP Pulse Ox 36.8 C 80 16 97/74 L 93 10/24/17 06:09 10/24/17 06:09 10/24/17 06:09 10/24/17 06:09 10/24/17 06:09 Microbiology 10/20/17 07:37 Gram Stain - Final Other - Lymph Node Tissue Culture - Final Laboratory Results 10/24/17 05:55 10/24/17 05:55 10/23/17 10/24/17 10/25/17 05:59 05:59 05:59 Intake Total 1100 1240 500 Output Total 1350 1275 Balance -250 -35 500 PT 14.7 SEC (12.0-15.0) 10/18/17 23:10 INR 1.13 (0.83-1.16) 10/18/17 23:10 - Physical Exam Constitutional: no apparent distress Eyes: PERRL Ears, Nose, Mouth, Throat: moist mucous membranes Cardiovascular: regular rate and rhythym Respiratory: no respiratory distress Gastrointestinal: normoactive bowel sounds, soft, non-tender abdomen Skin: warm Musculoskeletal: full muscle strength Neurologic: CN II-XII Intact Psychiatric: encephalopathic ICD10 Worksheet Patient Problems: Problems Problem Status Onset AIDS Acute Failure to thrive in adult Acute Fever Acute Generalized weakness Acute Hyponatremia Acute Abdominal pain Acute CMV (cytomegalovirus) Acute
[2017-10-24] MEDS: ETHAMBUTOL HCL 400 MG TAB PO SCH (12:22)
[2017-10-24] MEDS: AZITHROMYCIN 600 MG TAB PO SCH (12:23)
--- NOTE | 2017-10-24 16:05 | ASMTCMCOM ---
CM Note CM Note Notes: OT ordered; awaiting eval. Updates faxed to [facility]. Liason from [facility] to come to hospital to meet with pt. [facility] to visit pt as well. RN & MD updated. CM will continue to follow. Dc poc-SNF Date Signed: 10/24/2017 04:04 PM Electronically Signed By:Danica Rodriguez RN
[2017-10-25] MEDS: CLOTRIMAZOLE 10 MG TROCHE PO SCH ×5 (05:44→21:10)
[2017-10-25 06:39] LABS: PLATELET COUNT 317 10^3/uL (150-400)
[2017-10-25] MEDS: DRONABINOL 2.5 MG CAP PO SCH ×2 (09:16→21:10)
[2017-10-25] MEDS: ENOXAPARIN 40 MG/0.4 ML SYR SC SCH (09:16)
[2017-10-25] MEDS: SODIUM CHLORIDE 1,000 MG TAB PO SCH ×2 (09:19→17:16)
[2017-10-25] MEDS: PANTOPRAZOLE SODIUM 40 MG TAB PO SCH (09:19)
[2017-10-25] MEDS: SULFAMETHOX/TMP 800/160 MG 1 TAB PO SCH (09:20)
[2017-10-25] MEDS: SENNOSIDES 1 TAB PO SCH ×2 (09:21→21:09)
[2017-10-25] MEDS: EMTRICITABINE PO SCH (09:24)
[2017-10-25] MEDS: TENOFOV ALAFENAM PO SCH (09:24)
[2017-10-25] MEDS: Dolutegravir Sodium [Tivicay] 50 MG PO SCH (09:25)
--- NOTE | 2017-10-25 09:58 | PCMIDPN ---
Assessment/Plan: 1. 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 Baseline color testing was fine. Appreciate Dr. Nunes's assistance. Abdominal pain much better. 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 Twice daily. When we discovered the patient was not taking Valcyte 900 mg twice daily during his last hospital admission, we had to "restart the clock". Therefore, 6 weeks of 900 mg p.o. Twice daily would have a stop date of November 09. He is mildly leukopenic today, but this may be his baseline. Will follow CBC over time and repeat tomorrow; hopefully will not require G-CSF. After November 09, would back down to maintenance therapy of Valcyte 900 mg once daily. 3. Aids: Continue Dolutegravir and Descovy as is. Repeat viral load pending. This should be run tomorrow. 4. Prophylaxis: Continue Bactrim DS daily for Pneumocystis prophylaxis 5. Oral candidiasis: Continue clotrimazole troches. 6. Disposition: We are waiting to hear about mcc facilities in the [place] area. The patient is presently unable to care for himself given his multiple medical issues, including end-stage AIDS, disseminated mycobacterium avium, and CMV terminal ileitis. His partner is not able to care for him either, given that he works during the day. I am very concerned that the patient could fall, or have an accident at home, and not take his medications properly, which could contribute significantly to morbidity and mortality. 7. 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 Status post unit of packed red cells last week Recent labs with vitamin B12, folate, and testosterone were within normal limits. 8. Leukopenia: This may be his baseline. Watch carefully moving forward on Valcyte. Check CBC again tomorrow. Differential is fine. 9. New diarrhea: Likely secondary to ongoing senna. Have asked the nurse to stop this. Over 25 mins spent with this pt. 10/25/17 09:53 Subjective: Had 6 loose stools this morning. Says abdominal pain is much better. The nurse tells me he did get senna last night. No blurred vision, nausea or vomiting. Still unsteady on his feet. Objective: Ethambutol 800 mg daily Azithromycin 600 mg p.o. Daily Descovy/Dolutegravir daily Bactrim DS daily Valcyte 900 mg p.o. Twice daily Clotrimazole troches 5 times per day No fevers Vital Signs Temp Pulse Resp BP Pulse Ox 36.5 C 61 14 94/74 L 93 10/25/17 07:00 10/25/17 07:00 10/25/17 07:00 10/25/17 07:00 10/25/17 07:00 Laboratory Results 10/25/17 06:00 10/25/17 06:00 10/24/17 10/25/17 10/26/17 05:59 05:59 05:59 Intake Total 1240 1395 Output Total 1275 910 Balance -35 485 AFB blood susceptibilities sent to [facility] pending, as are lymph node AFB - Physical Exam General Appearance: no apparent distress, cachetic EENT: No scleral icterus, No thrush Respiratory: lungs clear Cardiac/Chest: regular rate, rhythm Extremities: other (PICC line right upper extremity looks fine) Abdomen: non-tender, soft Skin: No rash Neuro/Psych: oriented x 3 ICD10 Worksheet Patient Problems: Problems Problem Status Onset AIDS Acute Failure to thrive in adult Acute Fever Acute Generalized weakness Acute Hyponatremia Acute Abdominal pain Acute CMV (cytomegalovirus) Acute
--- NOTE | 2017-10-25 10:52 | HOSPPROG ---
Hospitalist Progress Note Assessment/Plan: DIAGNOSES: # disseminated MAC confirmed by biopsy of lymph nodes as well as AFB smear * azithro + Etham # CMV ileitis * valganciclovir 800mg PO BID # aids * Descovy, dolutegravir # severe generalized weakness and deconditioning * PT and OT # severe protein calorie malnutrition with cachexia, BMI 17 * Nutritional support in addition to other therapies described herein # Loose stools * Current probably treat with antidiarrheals and antispasmodics but will review with Dr. Kamara before ordering those # Social issues * Will likely need correction facility but due to his issues that will not be available him in [place] and it looks like where having [facility] 1st visit him The patient has described to me that he believes that he has been diagnosed with lymphoma. I can see no evidence nor suggest of that in any part of the chart here so far. My suspicion is that this was a diagnosis that was handed to him as a suspicion from another hospital where he had CT scanning showing diffuse adenopathy in the abdomen, without biopsy, before he came under the care and diagnostic assessments at [facility]. However I will review this with Dr. Kamara and make sure that we have all the information we need from the other hospital to be certain or going with. But at this time his adenopathy is with caseating granulomas with AFB present and he has sputum with AFB present Seen by me today on multidisciplinary rounds in addition to hospitalist rounds SUBJECTIVE: Still weak tired and sore and having loose stools OBJECTIVE Vitals reviewed: Still low on blood pressures but otherwise stable without fever Dry Roaster, my review: Sinus Exam: alert oriented, quite malnourished with cachexia skin warm dry color ok resps not labored lungs clear BSs heart regular abd soft nondistended mildly tender, bowel sounds present limbs warm, no edema iv site ok Stable CBC with unchanged normocytic anemia Sodium slightly better 129 today otherwise stable met panel Objective: Vital Signs Temp Pulse Resp BP Pulse Ox 36.5 C 61 14 94/74 L 93 10/25/17 07:00 10/25/17 07:00 10/25/17 07:00 10/25/17 07:00 10/25/17 07:00 Laboratory Results 10/25/17 06:00 10/25/17 06:00 10/24/17 10/25/17 10/26/17 06:59 06:59 06:59 Intake Total 1740 895 Output Total 1275 910 Balance 465 -15 PT 14.7 SEC (12.0-15.0) 10/18/17 23:10 INR 1.13 (0.83-1.16) 10/18/17 23:10 - Time Spent With Patient Time Spent with Patient: greater than 35 minutes Time Spent with Patient: Greater than 35 minutes spent on this patients care, greater than 50% of time spent counseling, educating, and coordinating care regarding the above mentioned plan. ICD10 Worksheet Patient Problems: Problems Problem Status Onset AIDS Acute Failure to thrive in adult Acute Fever Acute Generalized weakness Acute Hyponatremia Acute Abdominal pain Acute CMV (cytomegalovirus) Acute
--- NOTE | 2017-10-25 11:32 | GHP ---
[f rep st] HISTORY AND PHYSICAL DATE OF ADMISSION: 10/18/2017 Patient is followed by Dr. Kamara with Infectious Disease. SOURCE: Patient provides history, appears reliable. EMR was reviewed and case discussed with ED pro vider. CHIEF COMPLAINT: Fevers and rigors. HISTORY OF PRESENT ILLNESS: This is a very pleasant 56-year-old gentleman with past medical history significant for recent newly diagnosed HIV, AIDS with a hospitalization for end of September 2017 for CMV i leitis status post antivirals, who presents to the emergency department today with complaints of feve rs and rigors that have been intermittent, but occurred shortly after visit to an ID clinic. The pat cecy denies any nausea, vomiting. He has had some constipation and intermittent abdominal cramping s teresa his discharge. Denies any current melena, hematochezia. He also reports that he has not had an y voiding over the course of the whole day. He denies any cough. He had some rhinorrhea with clear drainage that he associates with seasonal allergies. No sore throat. He has no known sick contacts since his discharge. The patient also reports that he has been experiencing a little bit of lighthea dedness throughout the day, and that after arriving home from his afternoon appointment with infectio us disease that he went to bed and does not recall events until he arrived to the emergency departmen t. He denies any chest pain or shortness of breath. REVIEW OF SYSTEMS: GENERAL: The patient with fevers and rigors as noted above in HPI. SKIN: Denies any rashes or sores. ENT: Rhinorrhea as noted above. No sore throat. Eyes: No acute changes in vision or ocular pain. CV: No chest pain or palpitations. Respiratory: No cough. No shortness of breath. GI: Constipation since his discharge. No melena or hematochezia. Last had flatus in the morning. Last bowel movement has been several days ago or since he discharged. Patient denies any abdominal d istention. He has intermittent abdominal cramping. No focal pain sites. : The patient has reported that he has been experiencing dysuria without any hematuria. He states that during his hospital stay with his acute CMV ileitis that he did have some urinary retention and difficulty voiding. MUSCULOSKELETAL: Generalized weakness. No focal deficits. NEURO: Patient reports intermittent headache, also some intermittent numbness, tingling to his finge rtips and toes that has been ongoing for some time now. Worse with cold weather. PSYCH: Patient does report 2 episode of confusion as noted per HPI. No depression, anxiety. No SI or HI. Remainder of review of systems is negative except as noted above. ALLERGIES: No known drug allergies. HOME MEDICATIONS: As per EMR: Refresh eyedrops daily p.r.n. Vitamin B complex 1 tab p.o. daily. Vitamin D3 2000 units p.o. daily. Bactrim Double Strength 800/160 mg p.o. daily. Emtricitabine/tenofovir alafenamide 200/25 mg 1 tab p.o. daily. Valganciclovir 900 mg p.o. twice daily with meals. Tivicay 50 mg p.o. daily. Senokot S 1 to 2 tabs p.o. twice daily p.r.n. Omeprazole 20 mg p.o. daily. Docusate sodium 100 mg p.o. twice daily. PAST MEDICAL HISTORY: Significant for HIV, AIDS, CMV ileitis most recent discharge, GERD, constipati on, chronic anemia, thrush. PAST SURGICAL HISTORY: Significant for EGD and tympanostomy tube in the right side. Otherwise, no i ntraabdominal surgeries. FAMILY HISTORY: Father with pancreatic cancer. SOCIAL HISTORY: Patient lives in [place] with his partner. He does not drink or smoke. He do es utilize THC, edibles, and marijuana, but denies any current or historical use of IV drug use. Code status is full. PHYSICAL EXAMINATION: VITAL SIGNS: Upon arrival to the emergency department blood pressure 84/71, h eart rate 136, respiratory rate 18, O2 saturation 93% on room air with a temperature 36.6. Blood pre ssure currently at bedside systolic in the 70s with the patient lying quietly asymptomatic. HEAD: Normocephalic, atraumatic. EYES: Extraocular muscles grossly intact. Pupils equal, round, decreased reactivity to light bilate rally, but symmetric. No scleral icterus or conjunctival injection. ENT: Mucous membranes appear dry. The patient does have oral thrush on his tongue no oropharyngeal erythema or exudates otherwise appreciated. No nasal discharge. NECK: Supple, trachea midline. CV: Tachycardic in the low 100s. Slightly distant heart sounds. No murmurs, rubs, or gallops appre ciated. RESPIRATORY: Unlabored breathing. Lungs are clear to auscultation bilaterally slightly diminished a t the bases bilaterally. No wheezes, rhonchi, otherwise appreciated. ABDOMEN: Soft, patient without any tenderness to palpation. No rebound, guarding, or masses appreci ated. : No Demarco catheter in place. No suprapubic tenderness to palpation. No CVA tenderness. EXTREMITIES: The patient without any cyanosis, clubbing, or edema appreciated. 2+ pedal pulses. NEURO: Cranial nerves 2 through 12 intact symmetric bilaterally. No focal deficits. Moves all extr emities as noted above. PSYCH: does appear slightly anxious, but he is otherwise in good spirits, very friendly, cooperative. Thought process, content and questions all appear appropriate. LABORATORY STUDIES: WBC 14.0, H and H is 10.3 and 30.5, MCV 89.4, platelet count is 375, segmented n eutrophil percent is 88% no bands. Sodium 124, potassium is 4.0, chloride 194, CO2 19, BUN 17, creatinine 1.0 with a GFR greater than 60 . Glucose is 79, calcium is 8.5. PT is 14.7, INR is 1.135, PTT is 40.5. Total protein 7.3, albumin 3.1, total bilirubin 0.6, ALT 32, AST 24, alkaline phosphatase is 231. Blood cultures x2 are pending. Chest x-ray: Image and report reviewed myself, negative for any acute findings. Some mild tortuosit y in the lower thoracic aorta compatible with atherosclerotic and/or hypertensive vascular disease. EKG reviewed myself shows sinus tachycardia with some nonspecific anterolateral changes and flattenin g of T-waves. QTc 461. ASSESSMENT AND PLAN: This is a pleasant 56-year-old gentleman with history of HIV AIDS, who presents to the emergency department from home with complaints of fevers, rigors, and some confusion. 1. Sepsis without organ dysfunction. The patient does qualify with fever, tachycardia, leukocytosis . Renal function is preserved and patient without elevated lactate. His blood pressures have been re sponsive in the emergency department to fluid. It was restricted to 500 cc secondary to patient's hy ponatremia, however, feel that this is likely related to patient's hypovolemia. He does appear dry, and he reports that he has not voided in almost 24 hours. IV fluids will be given. Discussed with t he patient that potential need may exist for patient to go to the unit for blood pressure management. He has received vancomycin and Rocephin from the emergency department, completed on the floor. Bianca child was after consultation with Dr. Montoya, who agrees with that plan, and Infectious Disease service reina blackmon consult in the morning. Patient without any evidence of overt source. He does report a little bit of dysuria, but has not yet voided. He has been started on vanc and cefepime as noted above and reina blackmon await the urine specimen. Blood cultures x2 are also pending. 2. Hypotension. Fluid responsive. Continue with aggressive IV fluid hydration. His lactate is nor mal. 3. Hyponatremia. Likely secondary to hypovolemia. Patient is receiving a bolus followed by IV flui d supplementation. He has also been encouraged to take an oral hydration as tolerated. 4. AIDS. Resume patient's antiviral medications once med rec available and patient may take home me ds if not available on formulary. 5. CMV ileitis. Continue Ganciclovir. 6. Constipation. Bowel regimen will be ordered and started in the morning. The patient reports he is feeling quite fatigued. 7. Thrush. Nystatin swish and spit or swallow will be ordered. 8. Severe protein-calorie malnutrition with some hypoalbuminemia. The patient's body mass index is 17.3 at this time. Dietary consult and supplemental shakes have been ordered. 9. Anemia of chronic disease. H and H appears to be stable. Patient without any evidence of active bleeding or report of bleeding. We will monitor closely. 10. Gastroesophageal reflux disease. Resume PPI per formulary or as per patient's home medications. 11. Fluid, electrolyte, nutrition. Continue IV fluids as noted above. Electrolyte monitoring and r eplacement as needed. Diet as tolerated. 12. Prophylaxis: SCDs, Lovenox. 13. Code status is full. 14. Disposition: Patient admitted to inpatient status on PCU floor for close cardiac monitoring. A nticipate greater than 2 midnight stay given severity of patient's illness and need to monitor for la boratory resolved including his cultures and adjustment of antibiotics with consultation with Infecti ous Disease service. /[id number]/MODL
[2017-10-25] MEDS: ETHAMBUTOL HCL 400 MG TAB PO SCH (12:59)
[2017-10-25] MEDS: AZITHROMYCIN 600 MG TAB PO SCH (12:59)
--- NOTE | 2017-10-25 17:01 | ASMTCMCOM ---
CM Note CM Note Notes: 10/25/2017 Case Management Note Faxed Infectious disease note and PASRR to [facility] rep [place]. Pt approved for [facility] placement by [facility]. Awaiting acceptance by SNF facility. Case Management to follow. Date Signed: 10/25/2017 05:00 PM Electronically Signed By:Isaura Gardiner RN
[2017-10-25] MEDS: oxyCODONE IR 5 MG TAB PO PRN ×2 (17:15→21:58)
[2017-10-26] MEDS: oxyCODONE IR 5 MG TAB PO PRN (06:00)
[2017-10-26] MEDS: CLOTRIMAZOLE 10 MG TROCHE PO SCH ×5 (06:02→21:07)
[2017-10-26] MEDS: DRONABINOL 2.5 MG CAP PO SCH ×2 (06:20→21:07)
[2017-10-26 06:21] LABS: PLATELET COUNT 339 10^3/uL (150-400)
--- NOTE | 2017-10-26 09:05 | PCMIDPN ---
Assessment/Plan: 1. 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 Baseline color testing was fine. Appreciate Dr. Nunes's assistance. Abdominal pain waxes and wanes, but overall he is clinically much better. 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 Twice daily. When we discovered the patient was not taking Valcyte 900 mg twice daily during his last hospital admission, we had to "restart the clock". Therefore, 6 weeks of 900 mg p.o. Twice daily would have a stop date of November 09. Patient's white blood cell count is stable today (improved). 3. Aids: Continue Dolutegravir and Descovy as is. Repeat viral load pending. This should be run tomorrow. 4. Prophylaxis: Continue Bactrim DS daily for Pneumocystis prophylaxis 5. Oral candidiasis: Continue clotrimazole troches. 6. Disposition: Patient has been approved by the [facility] for LTAC. Awaiting placement. 7. 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 Status post unit of packed red cells last week Recent labs with vitamin B12, folate, and testosterone were within normal limits. Hematocrit stable 8: Access: Patient has a triple-lumen PICC line in his right upper extremity that is not being used. This is an infection risk. Will place peripheral IV and then pull. Subjective: Patient just woke up. Says he is mildly nauseated. Abdominal pain about the same, no worse. Eating. No diarrhea. Happy to hear that he was approved for placement. Objective: Descovy/Dolutegravir Bactrim DS daily Valcyte 900 mg p.o. Twice daily Ethambutol 800 mg a day Azithromycin 600 mg daily Clotrimazole troches Afebrile Vital Signs Temp Pulse Resp BP Pulse Ox 36.9 C 82 16 90/58 L 94 10/26/17 07:13 10/26/17 07:13 10/26/17 07:13 10/26/17 07:13 10/26/17 07:13 Laboratory Results 10/26/17 06:15 10/25/17 06:00 10/25/17 10/26/17 10/27/17 05:59 05:59 05:59 Intake Total 1395 2720 Output Total 910 550 Balance 485 2170 No new microbiology - Physical Exam General Appearance: no apparent distress, cachetic EENT: pharynx normal, No thrush Respiratory: lungs clear Extremities: other (Triple-lumen PICC right upper extremity with no erythema or arm swelling) Abdomen: other (Flat, mild tenderness to palpation right lower quadrant, no peritoneal signs.) Skin: No rash ICD10 Worksheet Patient Problems: Problems Problem Status Onset AIDS Acute Failure to thrive in adult Acute Fever Acute Generalized weakness Acute Hyponatremia Acute Abdominal pain Acute CMV (cytomegalovirus) Acute
[2017-10-26] MEDS: ENOXAPARIN 40 MG/0.4 ML SYR SC SCH (11:07)
[2017-10-26] MEDS: ETHAMBUTOL HCL 400 MG TAB PO SCH (11:09)
[2017-10-26] MEDS: PANTOPRAZOLE SODIUM 40 MG TAB PO SCH (11:09)
[2017-10-26] MEDS: AZITHROMYCIN 600 MG TAB PO SCH (11:09)
[2017-10-26] MEDS: SENNOSIDES 1 TAB PO SCH ×2 (11:09→21:07)
[2017-10-26] MEDS: SULFAMETHOX/TMP 800/160 MG 1 TAB PO SCH (11:10)
[2017-10-26] MEDS: SODIUM CHLORIDE 1,000 MG TAB PO SCH ×2 (11:14→17:10)
[2017-10-26] MEDS: Dolutegravir Sodium [Tivicay] 50 MG PO SCH (11:16)
[2017-10-26] MEDS: TENOFOV ALAFENAM PO SCH (11:16)
[2017-10-26] MEDS: EMTRICITABINE PO SCH (11:16)
--- NOTE | 2017-10-26 14:40 | HOSPPROG ---
Hospitalist Progress Note Assessment/Plan: DIAGNOSES: # disseminated MAC confirmed by biopsy of lymph nodes as well as AFB smear * azithro + Etham # CMV ileitis * valganciclovir 800mg PO BID # aids * Descovy, dolutegravir # severe generalized weakness and deconditioning * PT and OT # hyponatremia with likely usually me a or nearly so * Worsening today, ? Due to his increased abdominal symptoms and poor intake * Suspect multifactorial causes partly due to decreased intake, with some GI losses * Will begin some replacement with saline and follow the response to that at this time # severe protein calorie malnutrition with cachexia, BMI 17 * Nutritional support in addition to other therapies described herein # Loose stools * Current probably treat with antidiarrheals and antispasmodics but will review with Dr. Kamara before ordering those # Social issues * Will likely need senior living facility but due to his issues that will not be available him in [place] and it looks like where having [place] 1st visit him The patient has described to me that he believes that he has been diagnosed with lymphoma. I can see no evidence nor suggest of that in any part of the chart here so far. My suspicion is that this was a diagnosis that was handed to him as a suspicion from another hospital where he had CT scanning showing diffuse adenopathy in the abdomen, without biopsy, before he came under the care and diagnostic assessments at [facility]. However I will review this with Dr. Kamara and make sure that we have all the information we need from the other hospital to be certain or going with. But at this time his adenopathy is with caseating granulomas with AFB present and he has sputum with AFB present Seen by me today on multidisciplinary rounds in addition to hospitalist rounds SUBJECTIVE: Today complaining of lot of diffuse abdominal pain, still he says having some loose stools, but also today states he is having some nausea and vomiting No chills or sweats, no shortness of breath, no other new symptoms OBJECTIVE Vitals reviewed: Still low on blood pressures but otherwise stable without fever Proposal Consultant, my review: Sinus Exam: alert oriented, quite malnourished with cachexia; looks uncomfortable skin warm dry color ok resps not labored lungs clear BSs heart regular abd soft nondistended mildly tender, bowel sounds present, overall very benign abdominal exam limbs warm, no edema iv site ok Stable CBC with unchanged normocytic anemia Sodium lower today at 127, otherwise stable met panel I ordered abdominal x-rays and I reviewed these films, I do not see any acute abnormality, knows the signs of obstruction, free air or other concerning findings Objective: Vital Signs Temp Pulse Resp BP Pulse Ox 37.8 C 82 18 109/81 H 94 10/26/17 11:23 10/26/17 11:23 10/26/17 11:23 10/26/17 11:23 10/26/17 11:23 Microbiology 10/20/17 07:37 Mycobacterial Smear (FRANK) - Final Other - Lymph Node Laboratory Results 10/26/17 06:15 10/25/17 06:00 10/25/17 10/26/17 10/27/17 06:59 06:59 06:59 Intake Total 895 2720 Output Total 910 550 Balance -15 2170 PT 14.7 SEC (12.0-15.0) 10/18/17 23:10 INR 1.13 (0.83-1.16) 10/18/17 23:10 - Time Spent With Patient Time Spent with Patient: greater than 35 minutes Time Spent with Patient: Greater than 35 minutes spent on this patients care, greater than 50% of time spent counseling, educating, and coordinating care regarding the above mentioned plan. ICD10 Worksheet Patient Problems: Problems Problem Status Onset AIDS Acute Failure to thrive in adult Acute Fever Acute Generalized weakness Acute Hyponatremia Acute Abdominal pain Acute CMV (cytomegalovirus) Acute
--- NOTE | 2017-10-26 16:32 | ASMTCMCOM ---
CM Note CM Note Notes: 10/26/2017 Case Management Note Discussed pt during rounds this morning. Of note, RN reported pt had a fever of 100 this morning. Faxed referral to [facility] to visit pt in the morning on Wednesday. Left VM for Osiris Jhaveri [facility] intake foster care therapist at [phone]. Anticipating report from Osiris to be completed by end of day tomorrow. Contacted Bernardino, computer security coordinator, of [facility] and [facility]. Both are [facility] facilities. Isa to visit pt to assess late today or tomorrow. Attempted to call [facility] at [phone] but was unable to leave a VM. Case Management d/c poc: to be determined, awaiting acceptance by a facility. Case Management to follow. Date Signed: 10/26/2017 04:31 PM Electronically Signed By:Isaura Gardiner RN
[2017-10-26] MEDS: ACETAMINOPHEN 500 MG TAB PO PRN (17:10)
[2017-10-26] MEDS ORDERED: ONDANSETRON DISINTEGRATING 4 MG TAB PO PRN (18:02)
[2017-10-26] MEDS ORDERED: ONDANSETRON 4 MG/2 ML VIAL IVP PRN (18:04)
[2017-10-26] MEDS: NS 1,000 ML IV SCH (22:00)
[2017-10-27] MEDS: CLOTRIMAZOLE 10 MG TROCHE PO SCH ×5 (05:35→21:34)
[2017-10-27] MEDS: oxyCODONE IR 5 MG TAB PO PRN ×2 (05:36→13:49)
[2017-10-27] MEDS: NS 1,000 ML IV SCH ×2 (05:37→22:10)
[2017-10-27] MEDS: SENNOSIDES 1 TAB PO SCH ×2 (08:27→21:34)
[2017-10-27] MEDS: TENOFOV ALAFENAM PO SCH (08:28)
[2017-10-27] MEDS: EMTRICITABINE PO SCH (08:28)
[2017-10-27] MEDS: PANTOPRAZOLE SODIUM 40 MG TAB PO SCH (08:28)
[2017-10-27] MEDS: DRONABINOL 2.5 MG CAP PO SCH ×2 (08:28→21:34)
[2017-10-27] MEDS: SULFAMETHOX/TMP 800/160 MG 1 TAB PO SCH (08:28)
[2017-10-27] MEDS: SODIUM CHLORIDE 1,000 MG TAB PO SCH ×2 (08:28→17:58)
[2017-10-27] MEDS: ENOXAPARIN 40 MG/0.4 ML SYR SC SCH (08:29)
[2017-10-27] MEDS: Dolutegravir Sodium [Tivicay] 50 MG PO SCH (08:29)
[2017-10-27] MEDS: AZITHROMYCIN 600 MG TAB PO SCH (11:19)
--- NOTE | 2017-10-27 12:41 | ASMTCMCOM ---
CM Note CM Note Notes: Pts case discussed in morning rounds. CM spoke to CHLOE Car regarding d/c POC. MIKEY spoke to Isa at [facility] and she will have Bernardino at [facility] call [place] pts partner. Isa informed that [facility] has denied pt at this time. [facility] is interested and will be doing an on site. CM to follow. Plan: SNF Date Signed: 10/27/2017 12:41 PM Electronically Signed By:JOHN Wen
[2017-10-27] MEDS: ETHAMBUTOL HCL 400 MG TAB PO SCH (13:45)
[2017-10-27] MEDS: ACETAMINOPHEN 500 MG TAB PO PRN ×2 (13:49→21:40)
--- NOTE | 2017-10-27 14:54 | PCMIDPN ---
Assessment/Plan: #AIDS: CD4 20 (13%), VL 120 on Descovy, dolutegravir. Continue ARV. #CMV ileitis undetectable VL 10/11, continue valganciclovir 800mg PO BID, ANC 4200 --stop date for induction 11/09. #dMAC, new dx, started empiric therapy. Positive AFB Cx and smear LN (neg TB DNA ) + caseating granulomas on path: on 2 drug therapy with azithro + Etham. Baseline color testing was performed and was normal. # Social: awaiting placement rehab/SNF, looking for Medicaid bed # intermittent abdominal pain, no evidence of SBO. Continue to monitor, at risk for IRIS # HypoNa : likely reflective of poor PO intake meds Valganciclovir 800mg PO BID Bactrim DS 1 PO daily zithromax 600mg PO Daily ethambutol 800mg daily descovy 20/25mg PO daily dolutegravir 50mg daily Microbiology 10/18, 10/19 blood cx (2) Neg 10/[address]: smear +AFB, PCR negative for TB Subjective: patient articulated to me for the first time a good understanding of dx of MAC he describes intermittent abdominal pain R side >L but still having BMs Objective: Vital Signs Temp Pulse Resp BP Pulse Ox 36.6 C 71 16 88/61 L 98 10/27/17 07:33 10/27/17 07:33 10/27/17 07:33 10/27/17 07:33 10/27/17 07:33 Microbiology 10/20/17 07:37 Mycobacterial Smear (FRANK) - Final Other - Lymph Node Laboratory Results 10/26/17 06:15 10/26/17 16:05 10/26/17 10/27/17 10/28/17 05:59 05:59 05:59 Intake Total 2720 440 550 Output Total 550 1100 150 Balance 2170 -660 400 - Physical Exam General Appearance: alert, no apparent distress, thin, non-toxic EENT: No thrush Respiratory: lungs clear, No accessory muscle use Neck: supple Cardiac/Chest: regular rate, rhythm Abdomen: normal bowel sounds, soft, other (Mild discomfort to palpation of right lower quadrant, no peritoneal sign) Skin: pallor, No diaphoresis, No rash Neuro/Psych: alert, normal mood/affect, oriented x 3 - Line/s PIV Lines: other (PICC line was removed), No drainage, No erythema - Time Spent With Patient Time Spent with Patient: greater than 35 minutes Time Spent with Patient: Greater than 35 minutes spent on this patients care, greater than 50% of time spent counseling, educating, and coordinating care regarding the above mentioned plan. ICD10 Worksheet Patient Problems: Problems Problem Status Onset AIDS Acute Failure to thrive in adult Acute Fever Acute Generalized weakness Acute Hyponatremia Acute Abdominal pain Acute CMV (cytomegalovirus) Acute
--- NOTE | 2017-10-27 21:39 | HOSPPROG ---
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 as well as AFB smear * azithro + Etham # CMV ileitis * valganciclovir 800mg PO BID # aids * Descovy, dolutegravir # severe generalized weakness and deconditioning * PT and OT # hyponatremia with likely usually me a or nearly so * Suspect multifactorial causes partly due to decreased intake, with some GI losses, also some affective his chronic illness and medications * Continue saline and follow the response to that at this time # severe protein calorie malnutrition with cachexia, BMI 17 * Nutritional support in addition to other therapies described herein # Loose stools * Current probably treat with antidiarrheals and antispasmodics but will review with Dr. Kamara before ordering those # Social issues * Awaiting word from group home facilities that have been assessing him for possible rehabilitation visit. He appears stable for transfer to group home facility once we hear from any of them that he can go I reviewed his progress in detail today with Joceline Turpin from [facility] Seen by me today on multidisciplinary rounds in addition to hospitalist rounds SUBJECTIVE: Much less abdominal pain today and stools better off a stool softener Much better energy with IV hydration overnight OBJECTIVE Vitals reviewed: Still low on blood pressures but otherwise stable without fever Color Expert, my review: Sinus Exam: alert oriented, quite malnourished with cachexia; looks uncomfortable skin warm dry color ok resps not labored lungs clear BSs heart regular abd soft nondistended mildly tender, bowel sounds present, overall very benign abdominal exam limbs warm, no edema iv site ok Objective: Vital Signs Temp Pulse Resp BP Pulse Ox 36.3 C 66 16 90/66 L 100 10/27/17 20:18 10/27/17 20:18 10/27/17 20:18 10/27/17 20:18 10/27/17 20:18 Microbiology 10/20/17 07:37 Mycobacterial Smear (FRANK) - Final Other - Lymph Node Laboratory Results 10/26/17 06:15 10/26/17 16:05 10/26/17 10/27/17 10/28/17 06:59 06:59 06:59 Intake Total 2720 440 2630 Output Total 550 1100 475 Balance 2170 -660 2155 PT 14.7 SEC (12.0-15.0) 10/18/17 23:10 INR 1.13 (0.83-1.16) 10/18/17 23:10 - Time Spent With Patient Time Spent with Patient: greater than 35 minutes Time Spent with Patient: Greater than 35 minutes spent on this patients care, greater than 50% of time spent counseling, educating, and coordinating care regarding the above mentioned plan. ICD10 Worksheet Patient Problems: Problems Problem Status Onset AIDS Acute Failure to thrive in adult Acute Fever Acute Generalized weakness Acute Hyponatremia Acute Abdominal pain Acute CMV (cytomegalovirus) Acute
[2017-10-28] MEDS: oxyCODONE IR 5 MG TAB PO PRN ×2 (03:42→18:19)
[2017-10-28] MEDS: CLOTRIMAZOLE 10 MG TROCHE PO SCH ×5 (05:57→21:13)
[2017-10-28] MEDS: SODIUM CHLORIDE 1,000 MG TAB PO SCH ×2 (07:33→18:19)
[2017-10-28] MEDS: ACETAMINOPHEN 500 MG TAB PO PRN ×2 (07:34→18:18)
[2017-10-28] MEDS ORDERED: HYDROmorphONE/DILAUDID 1 MG/ML INJ IVP PRN ×2 (09:30→14:18)
--- NOTE | 2017-10-28 10:51 | PCMIDPN ---
Assessment/Plan: 1. Worsening abdominal pain: Will obtain stat KUB and upright to rule out perforation/obstruction. If this is negative, will proceed with repeat CT scan of the abdomen and pelvis, as it has been a week since most recent CT. Patient is certainly at risk for immune reconstitution, but need to rule out other more worrisome causes (perforation/ obstruction) 1st. Will add on liver function test a.m. Labs, and lipase. 2.. 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 Continue. Workup for abdominal pain as per the above. 3. CMV terminal ileitis: Continue Valcyte 900 mg p.o. Twice daily. When we discovered the patient was not taking Valcyte 900 mg twice daily during his last hospital admission, we had to "restart the clock". Therefore, 6 weeks of 900 mg p.o. Twice daily would have a stop date of November 09. Patient's white blood cell count is stable. 4. Aids: Continue Dolutegravir and Descovy as is. Viral load down to 120 copies. Repeat in 4 weeks--will be almost certainly undetectable by then. Will repeat T -cell count. 5. Prophylaxis: Continue Bactrim DS daily for Pneumocystis prophylaxis 6. Oral candidiasis: Continue clotrimazole troches. 7. Disposition: Patient has been approved by the [facility] for LTAC. Awaiting placement. 8. 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 Status post unit of packed red cells last week Recent labs with vitamin B12, folate, and testosterone were within normal limits. Hematocrit stable 10/28/17 10:51 Subjective: Patient writhing in pain. Tells me that he has the same abdominal pain as before. Nurse reports patient had a difficult day Wednesday afternoon after I saw him with pain, then yesterday and the nurse tells me he was fine, and had a good day. The patient had quite a bit of gas when I was in the room examining him, and his abdominal pain significantly improved after it was expelled. States that it is crampy abdominal pain. No associated nausea or vomiting. Objective: Descovy/Dolutegravir Ethambutol 800 mg daily Azithromycin 600 mg daily Valcyte 900 mg p.o. Twice daily Bactrim DS daily Clotrimazole troches No fevers Vital Signs Temp Pulse Resp BP Pulse Ox 36.5 C 64 18 105/71 97 10/28/17 10:12 10/28/17 07:45 10/28/17 07:45 10/28/17 07:45 10/28/17 07:45 Laboratory Results 10/26/17 06:15 10/28/17 03:42 10/27/17 10/28/17 10/29/17 05:59 05:59 05:59 Intake Total 440 3880 Output Total 1100 1600 375 Balance -660 2280 -375 No new microbiology, waiting susceptibility testing from [facility], which will likely take several weeks - Physical Exam General Appearance: cachetic, other (writhing in pain. having a lot of gas.) EENT: pharynx normal, No thrush Respiratory: lungs clear Abdomen: other (Not distended, tender particularly right lower quadrant, difficult to examine him) Skin: No rash ICD10 Worksheet Patient Problems: Problems Problem Status Onset AIDS Acute Failure to thrive in adult Acute Fever Acute Generalized weakness Acute Hyponatremia Acute Abdominal pain Acute CMV (cytomegalovirus) Acute
[2017-10-28] MEDS ORDERED: METHYLNALTREXONE BROMIDE 12 MG/0.6 ML INJ SC ONE (11:32)
[2017-10-28] MEDS ORDERED: IOPAMIDOL (ISOVUE-300) 100 ML BTL ONE (11:39)
[2017-10-28] MEDS: ENOXAPARIN 40 MG/0.4 ML SYR SC SCH (12:24)
[2017-10-28] MEDS: SENNOSIDES 1 TAB PO SCH ×2 (12:24→21:13)
[2017-10-28] MEDS: EMTRICITABINE PO SCH (12:25)
[2017-10-28] MEDS: TENOFOV ALAFENAM PO SCH (12:25)
[2017-10-28] MEDS: PANTOPRAZOLE SODIUM 40 MG TAB PO SCH (12:26)
[2017-10-28] MEDS: DRONABINOL 2.5 MG CAP PO SCH ×2 (12:26→21:13)
[2017-10-28] MEDS: SULFAMETHOX/TMP 800/160 MG 1 TAB PO SCH (12:26)
[2017-10-28] MEDS: Dolutegravir Sodium [Tivicay] 50 MG PO SCH (12:26)
--- NOTE | 2017-10-28 13:46 | ASMTCMCOM ---
CM Note CM Note Notes: Pts case discussed during tx rounds. CM spoke to Dr. Kamara and Joceline regarding d/c POC. [facility] has accepted pt. Priti at [facility] has the completed PAS[facility] and will be sending it to [facility]. Pt is not medically stable to d/c today due to severe abdominal pain. A liaison from [facility] stopped by today for a palliative informational. CM to follow. Plan: [facility] SNF Date Signed: 10/28/2017 01:45 PM Electronically Signed By:JOHN Wen
[2017-10-28] MEDS: POLYETHYLENE GLYCOL 3350 17 GM PKT PO SCH (14:43)
[2017-10-28] MEDS: AZITHROMYCIN 600 MG TAB PO SCH (14:43)
[2017-10-28] MEDS: ETHAMBUTOL HCL 400 MG TAB PO SCH (14:43)
[2017-10-28] MEDS ORDERED: predniSONE 20 MG TAB PO SCH (15:00)
--- NOTE | 2017-10-28 15:36 | HOSPPROG ---
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 Marley Kamara and we are ordering steroids to begin treatment for this # acute abdominal pain, acute severe episode today with fever after similar episode 2 days ago * Abdominal x-ray show significant constipation, abdomen CT images with some changes suggestive of immune reconstitution syndrome * Maybe due to immune constitution syndrome, but he certainly has significant constipation and has use of chronic narcotics. Did have some relief of similar pain 2 days ago after a large stool. * Have ordered some relative store as well as laxative to treat this # ? 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 as well as AFB smear * azithro + Etham # CMV ileitis * valganciclovir 800mg PO BID # aids * Notable decrease in his viral load now compared to the last 2 tests as he has resumed therapy * Continue Descovy, dolutegravir # severe generalized weakness and deconditioning * PT and OT * Plan will be to transfer to [facility] facility once his clinical issues are resolved # hyponatremia * Suspect multifactorial causes partly due to decreased intake, with some GI losses, also some affective his chronic illness and medications * Continue saline and follow the response to that at this time # severe protein calorie malnutrition with cachexia, BMI 17 * Nutritional support in addition to other therapies described herein # Social issues * Awaiting word from [facility] facilities that have been assessing him for possible rehabilitation visit. He appears stable for transfer to [facility] facility once we hear from any of them that he can go I reviewed his progress in detail today with Dr. Marley Kamara Seen by me today on multidisciplinary rounds in addition to hospitalist rounds SUBJECTIVE: Today again having significant diffuse crampy abdominal pain, intermittently a bit better after passage of flatus No appetite unable to eat Also some chills OBJECTIVE Vitals reviewed: Did have 1 fever 100.3 degrees this afternoon. Still mildly low on blood pressures but otherwise stable Bale Stacker, my review: Sinus Exam: alert oriented, quite malnourished with cachexia; looks uncomfortable skin warm dry color ok resps not labored lungs clear BSs heart regular abd soft nondistended mildly tender, bowel sounds present, no signs of peritonitis or mass limbs warm, no edema, iv site ok Laboratory data: Sodium better, stable renal function liver panel normal I reviewed CT scan images from abdomen today which show very minimal amount of ascites, some increase in diffuse abdominal adenopathy prior to previous studies and some mesenteric edema. The radiologist mentions a small area of lucency in the left chest either in mediastinum or pleural space. I have appreciated this abnormality is a very small abnormality, unable to determine its etiology. There is also a benign-appearing left renal cyst. Constipation is still present I reviewed abdominal x-rays done today which I ordered, and on images I see that he is still quite constipated. Objective: Vital Signs Temp Pulse Resp BP Pulse Ox 38.6 C H 107 H 22 H 124/85 H 93 10/28/17 14:28 10/28/17 13:32 10/28/17 13:32 10/28/17 14:28 10/28/17 13:32 Laboratory Results 10/26/17 06:15 10/28/17 03:42 10/27/17 10/28/17 10/29/17 06:59 06:59 06:59 Intake Total 440 3880 Output Total 1100 1600 375 Balance -660 2280 -375 PT 14.7 SEC (12.0-15.0) 10/18/17 23:10 INR 1.13 (0.83-1.16) 10/18/17 23:10 - Time Spent With Patient Time Spent with Patient: greater than 35 minutes Time Spent with Patient: Greater than 35 minutes spent on this patients care, greater than 50% of time spent counseling, educating, and coordinating care regarding the above mentioned plan. ICD10 Worksheet Patient Problems: Problems Problem Status Onset AIDS Acute Failure to thrive in adult Acute Fever Acute Generalized weakness Acute Hyponatremia Acute Abdominal pain Acute CMV (cytomegalovirus) Acute
[2017-10-28] MEDS ORDERED: NS 500 ML IV ONE (22:45)
[2017-10-29] MEDS ORDERED: NS BOLUS 500 ML IV ONE ×2 (00:30→02:35)
[2017-10-29] MEDS ORDERED: NS 500 ML IV ONE (04:35)
[2017-10-29] MEDS ORDERED: NS 1,000 ML IV ONE (05:27)
--- NOTE | 2017-10-29 05:36 | HOSPPROG ---
Hospitalist Progress Note Assessment/Plan: XC: Alerted by RN of hypotension and now hypothermia. Patient denies new symptoms aside from fatigue. He is mentating well, A&Ox3, which is actually an improvement from yesterday. His HR remains 50s-60s and his O2 sats are high 90' s on RA. I manually rechecked BP and found 78/60 (MAP 66). The cause for hypotension is unclear, this could possibly due to IRIS. He is under treatment for disseminated MAC and CMV colitis. Blood cultures drawn yesterday after a fever remain NGTD. Plan: - Aggressive fluid resuscitation - starting 3rd liter now - Obtain UA, CXR - Obtain CBC, CMP, lactate - I see no clear reason to provide broad spectrum antibiotics at this time. - I discussed case with Dr. Kamaar of infectious disease who agrees with holding off on further antibiotics currently and continuing with IVF. She would also like a cosyntropin stim test, which I will order. I spoke with nurse who logistically tells me this will have to wait until after shift change due to intensive nature of test; I will time for 8 AM start time. I personally spent 40 minutes of critical care time evaluating patient, interpreting data, coordinating care, and discussing case with specialist Objective: Vital Signs Temp Pulse Resp BP Pulse Ox 33.5 C L 61 16 74/51 L 98 10/29/17 04:00 10/29/17 03:44 10/29/17 03:44 10/29/17 04:00 10/29/17 03:44 Laboratory Results 10/26/17 06:15 10/27/17 10/28/17 10/29/17 05:59 05:59 05:59 Intake Total 440 3880 4123 Output Total 1100 1600 925 Balance -660 2280 3198 PT 14.7 SEC (12.0-15.0) 10/18/17 23:10 INR 1.13 (0.83-1.16) 10/18/17 23:10 - Time Spent With Patient Time Spent with Patient: greater than 35 minutes Time Spent with Patient: Greater than 35 minutes spent on this patients care, greater than 50% of time spent counseling, educating, and coordinating care regarding the above mentioned plan. - Physical Exam Constitutional: no apparent distress, chronically ill appearing Eyes: PERRL, EOMI Ears, Nose, Mouth, Throat: moist mucous membranes, no oral mucosal ulcers Cardiovascular: regular rate and rhythym, no murmur, rub, or gallop Respiratory: no respiratory distress, no rales or rhonchi Gastrointestinal: normoactive bowel sounds, soft, non-tender abdomen Skin: warm, normal color Musculoskeletal: full muscle strength, no muscle tenderness Neurologic: AAOx3, CN II-XII Intact Psychiatric: interacting appropriately, not anxious ICD10 Worksheet Patient Problems: Problems Problem Status Onset AIDS Acute Failure to thrive in adult Acute Fever Acute Generalized weakness Acute Hyponatremia Acute Abdominal pain Acute CMV (cytomegalovirus) Acute
[2017-10-29] MEDS: CLOTRIMAZOLE 10 MG TROCHE PO SCH ×5 (05:48→21:26)
[2017-10-29] MEDS: NS 1,000 ML IV SCH (07:06)
[2017-10-29] MEDS ORDERED: COSYNTROPIN 0.25 MG/2 ML SYRINGE IVP ONE (08:00)
[2017-10-29] MEDS ORDERED: ALTEPLASE 2 MG VIAL IVP PRN (08:24)
--- NOTE | 2017-10-29 08:33 | PCMIDPN ---
Assessment/Plan: 1. History of severe colicky abdominal pain secondary to 2 intra-abdominal opportunistic infections (dMAC/CMV): KUB yesterday without evidence of perforation or obstruction. Reviewed CT scan with Dr. Jones. Patient has worsening bulky intra-abdominal adenopathy concerning for immune reconstitution from dMAC. Please see plan below. 2.. Disseminated MAC: Will add rifabutin 300 mg p. O. Daily to azithromycin 600 mg p.o. Daily and ethambutol 800 mg p.o. Daily given concern for significant disease burden. Will need to change Descovy to Truvada as outlined below. Because rifabutin metabolizes up to a 3rd of the prednisone dose, will increase prednisone to 60 mg daily for possible immune reconstitution. 3. CMV terminal ileitis: Continue Valcyte 900 mg p.o. Twice daily. When we discovered the patient was not taking Valcyte 900 mg twice daily during his last hospital admission, we had to "restart the clock". Therefore, 6 weeks of 900 mg p.o. Twice daily would have a stop date of November 09. Patient's white blood cell count is stable. Terminal ileitis stable. 4. Aids: Continue Dolutegravir, change Descovy to Truvada given interaction with TAF and rifabutin. Repeat T-cell count is pending. 5. Prophylaxis: Continue Bactrim DS daily for Pneumocystis prophylaxis 6. Oral candidiasis: Continue clotrimazole troches. 7. Disposition: Patient has been approved by the [facility] for LTAC and has a bed available in [place]. However, he is medically not able to go at this point in time. Suspect it will take at least a week here before he is able to go. 8. 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 Over 45 min was spent with this patient today. 10/29/17 08:36 Subjective: Called early this morning by hospitalist given patient's blood pressure extremely low, although the patient was mentating appropriately, making urine and not tachycardic. Of note, the patient's blood pressure has been low, but this was quite low with systolics in the 70s. Came to see patient and spent quite some time with him today. He states that today is a good day, and he has no abdominal pain. He was really not able to sleep secondary to frequent vital sign checks. That being said, he is hungry, and eager to order something from the menu. He states he did need dinner last night because they brought him a burned pizza slice. Had a normal bowel movement yesterday. No nausea or vomiting or cough. Intermittent headache that he says is likely from his medication. No visual disturbance. Objective: Descovy/Dolutegravir Valcyte 900 mg p.o. Twice daily Bactrim DS daily Ethambutol 800 mg daily Azithromycin 600 mg p.o. Daily Protonix Clotrimazole Vital Signs Temp Pulse Resp BP Pulse Ox 35.6 C L 88 18 90/58 L 98 10/29/17 07:55 10/29/17 07:55 10/29/17 07:55 10/29/17 08:05 10/29/17 07:55 Laboratory Results 10/29/17 05:37 10/29/17 05:10 10/28/17 10/29/17 10/30/17 05:59 05:59 05:59 Intake Total 3880 5799 200 Output Total 1600 925 200 Balance 2280 4874 0 - Physical Exam General Appearance: no apparent distress, cachetic EENT: pharynx normal, No scleral icterus, No thrush Respiratory: lungs clear Cardiac/Chest: regular rate, rhythm, No systolic murmur Abdomen: tender (Right lower quadrant) Skin: No rash Neuro/Psych: no motor/sensory deficits, oriented x 3 ICD10 Worksheet Patient Problems: Problems Problem Status Onset AIDS Acute Failure to thrive in adult Acute Fever Acute Generalized weakness Acute Hyponatremia Acute Abdominal pain Acute CMV (cytomegalovirus) Acute
[2017-10-29] MEDS: ENOXAPARIN 40 MG/0.4 ML SYR SC SCH (09:02)
[2017-10-29] MEDS: EMTRICITABINE/TENOFOVIR 200MG/300MG TAB PO SCH (09:04)
[2017-10-29] MEDS: PANTOPRAZOLE SODIUM 40 MG TAB PO SCH (09:04)
[2017-10-29] MEDS: SODIUM CHLORIDE 1,000 MG TAB PO SCH ×2 (09:05→18:27)
[2017-10-29] MEDS: DRONABINOL 2.5 MG CAP PO SCH ×2 (09:05→21:24)
[2017-10-29] MEDS: SULFAMETHOX/TMP 800/160 MG 1 TAB PO SCH (09:05)
[2017-10-29] MEDS: SENNOSIDES 1 TAB PO SCH ×2 (09:06→21:27)
[2017-10-29] MEDS: predniSONE 20 MG TAB PO SCH (09:06)
[2017-10-29] MEDS: Dolutegravir Sodium [Tivicay] 50 MG PO SCH (09:35)
[2017-10-29] MEDS: POLYETHYLENE GLYCOL 3350 17 GM PKT PO SCH (09:41)
[2017-10-29] MEDS: RIFABUTIN 150 MG CAP PO SCH (11:57)
[2017-10-29] MEDS: AZITHROMYCIN 600 MG TAB PO SCH (11:59)
[2017-10-29] MEDS: ETHAMBUTOL HCL 400 MG TAB PO SCH (11:59)
--- NOTE | 2017-10-29 13:39 | ASMTCMCOM ---
MIKEY Note CM Note Notes: Pts case discussed in tx rounds. Pt is getting a PICC line today. Pt is starting a new medication routine. Pt will most likely need to be here for another week according to Dr. Kamara. MIKEY notified [facility] of this. CM to follow. Plan: [facility] Date Signed: 10/29/2017 01:38 PM Electronically Signed By:JOHN Wen
--- NOTE | 2017-10-29 19:06 | HOSPPROG ---
Hospitalist Progress Note Assessment/Plan: Assessment: 56-year-old male presents with acutely disseminated MAC, CMV colitis, acute immune reconstitution inflammatory syndrome, acute hypotension Plan: # IRIS. Acute, 2/2 recent initiation of ART, increasing pred to 60mg today 2/2 drug interaction -CXR w/ minimal RLL infiltrate (personally interpreted), repeat if developing pulm sx # Acute hypotension. New problem, further w/u indicated. Patient reports baseline 110s, currently 80s w/ mildly elevated lactic acid (2.2) and ongoing infxn -repeat vLact now -cont NS at 150/hr, bolus if vLact rising -start pressors if not responding to IVF bolus -repeat vLact in AM # Disseminated MAC. Confirmed by biopsy of lymph nodes as well as AFB smear -d/w Dr. Kamara, she is broadening therapy based on sensitivity patterns, to Azithro/Ethambutol/Rifampin # CMV ileitis. Symptomatically improving, cont valganciclovir 800mg PO BID # AIDS. Opportunistic illness defining infxns, CD4 pending -adjusted ART 2/2 Rx-interactions # Severe generalized weakness and deconditioning. [facility] once his clinical issues are resolved # Acute hyponatremia. Severe, 2/2 combination of GI losses, poor oncotic pressure -liberalize fluid restriction to 2L/day -monitor closely -cont NS # Severe protein calorie malnutrition. Evidenced by cachexia, low BMI 17 -Nutritional support, dietary consult # Chronic pain w/ continuous opiate dependency. Cont home dosing, pain currently well controlled -bowel regimen if needed # Anemia. 2/2 chronic inflammatory disease, no e/o blood loss, s/p transfusion Diet. Regular PPx. High risk, lovenox 40 Code. Full Dispo. ADD uncertain, remains ill Subjective: less lethargic than day prior Objective: Vital Signs Temp Pulse Resp BP Pulse Ox 36.8 C 76 18 85/62 L 97 10/29/17 15:48 10/29/17 15:48 10/29/17 15:48 10/29/17 15:48 10/29/17 15:48 Laboratory Results 10/29/17 05:37 10/29/17 05:10 10/28/17 10/29/17 10/30/17 05:59 05:59 05:59 Intake Total 3880 5799 2775 Output Total 1600 925 475 Balance 2280 3573 2300 PT 14.7 SEC (12.0-15.0) 10/18/17 23:10 INR 1.13 (0.83-1.16) 10/18/17 23:10 - Physical Exam Constitutional: no apparent distress, not in pain, chronically ill appearing, cachectic, No uncomfortable Cardiovascular: regular rate and rhythym, no murmur, rub, or gallop, edema ( trace bilat LE) Respiratory: no respiratory distress, no rales or rhonchi, clear to auscultation Gastrointestinal: normoactive bowel sounds, soft, non-tender abdomen, no palpable masses, No distension Musculoskeletal: other (proximal muscle wasting, temporal muscle wasting) Neurologic: AAOx3, sensation intact bilaterally, No weakness Psychiatric: interacting appropriately, not anxious, not encephalopathic, thought process linear ICD10 Worksheet Patient Problems: Problems Problem Status Onset Abdominal pain Acute Failure to thrive in adult Acute AIDS Acute CMV (cytomegalovirus) Acute Fever Acute Generalized weakness Acute Hyponatremia Acute
[2017-10-30] MEDS: NS 1,000 ML IV SCH (06:10)
[2017-10-30] MEDS: CLOTRIMAZOLE 10 MG TROCHE PO SCH ×5 (06:11→22:30)
[2017-10-30 06:43] LABS: PLATELET COUNT 269 10^3/uL (150-400)
[2017-10-30] MEDS: EMTRICITABINE/TENOFOVIR 200MG/300MG TAB PO SCH (08:26)
[2017-10-30] MEDS: POLYETHYLENE GLYCOL 3350 17 GM PKT PO SCH (08:26)
[2017-10-30] MEDS: predniSONE 20 MG TAB PO SCH (08:26)
[2017-10-30] MEDS: PANTOPRAZOLE SODIUM 40 MG TAB PO SCH (08:27)
[2017-10-30] MEDS: SULFAMETHOX/TMP 800/160 MG 1 TAB PO SCH (08:27)
[2017-10-30] MEDS: SENNOSIDES 1 TAB PO SCH ×2 (08:27→22:30)
[2017-10-30] MEDS: ENOXAPARIN 40 MG/0.4 ML SYR SC SCH (08:27)
[2017-10-30] MEDS: SODIUM CHLORIDE 1,000 MG TAB PO SCH ×2 (08:27→18:38)
[2017-10-30] MEDS: DRONABINOL 2.5 MG CAP PO SCH ×2 (08:27→22:30)
[2017-10-30] MEDS: Dolutegravir Sodium [Tivicay] 50 MG PO SCH (09:36)
[2017-10-30] MEDS: RIFABUTIN 150 MG CAP PO SCH (10:58)
[2017-10-30] MEDS: ETHAMBUTOL HCL 400 MG TAB PO SCH (10:58)
[2017-10-30] MEDS: AZITHROMYCIN 600 MG TAB PO SCH (10:58)
--- NOTE | 2017-10-30 11:38 | PCMIDPN ---
Assessment/Plan: #AIDS: CD4 20 (13%), VL 120 : ARV adjusted yesterday to Truvada and Dolutegravir due to drug drug interaction w TAF and Rif #CMV ileitis undetectable VL 10/11, continue valganciclovir 800mg PO BID, ANC 6000 , Cr 0.5 --stop date for induction 11/09. #dMAC: Started on 3 drug therapy yesterday with addition of rifabutin to ethambutol and azithromycin # IRIS: suggestive findings: persistent abdominal pain, increased LN size, intermittent hypotension, started on Prednisone. Awaiting CD4 count. # Tachycardia: intermittent tachy on my exam, check EKG # Social: awaiting placement rehab/SNF, looking for Medicaid bed meds Valganciclovir 800mg PO BID Bactrim DS 1 PO daily Zithromax 600mg PO Daily ethambutol 800mg daily Rifabutin 300mg daily Truvada dolutegravir 50mg daily Pred 60mg Daily Microbiology 10/18, 10/19, 10/28 blood cx (2) Neg 10/[address]: smear +AFB, PCR negative for TB; Cx and sensi pending Subjective: I feel like I am finally heading in the right direction able to sleep eating a lot more minimal abdominal pain had a "2 foot BM" denies GI upset w new meds Objective: Vital Signs Temp Pulse Resp BP Pulse Ox 36.3 C 133 H 15 96/76 L 100 10/30/17 11:01 10/30/17 11:01 10/30/17 11:01 10/30/17 11:01 10/30/17 11:01 Laboratory Results 10/30/17 06:20 10/30/17 06:20 10/29/17 10/30/17 10/31/17 05:59 05:59 05:59 Intake Total 5799 4975 120 Output Total 925 1725 Balance 4874 3250 120 - Physical Exam General Appearance: alert, no apparent distress EENT: No thrush Respiratory: lungs clear, No accessory muscle use Cardiac/Chest: tachycardia (intermittent tachy), No systolic murmur Extremities: No pedal edema Abdomen: normal bowel sounds, non-tender, soft Male Genitalia: No frazier Skin: pallor, No rash Neuro/Psych: alert, normal mood/affect, oriented x 3 - Time Spent With Patient Time Spent with Patient: greater than 35 minutes Time Spent with Patient: Greater than 35 minutes spent on this patients care, greater than 50% of time spent counseling, educating, and coordinating care regarding the above mentioned plan. ICD10 Worksheet Patient Problems: Problems Problem Status Onset AIDS Acute Failure to thrive in adult Acute Fever Acute Generalized weakness Acute Hyponatremia Acute Abdominal pain Acute CMV (cytomegalovirus) Acute
--- NOTE | 2017-10-30 18:19 | ASMTCMCOM ---
CM Note CM Note Notes: Pt feeling much better today, discussed in rounds and pt may be ready for dc a bit earlier than thought, possibly early next week as opposed to end of week. Spoke w/Riley RN, at [facility] and gave her this info; she will let admissions know tomorrow. Updates sent to [facility]. Pt was current with [facility] prior to admit and would like to resume care w/[facility] after rehab stay so CM will need to let [facility] know about [facility].CM will follow. Date Signed: 10/30/2017 06:19 PM Electronically Signed By:Jenn Garcia RN
--- NOTE | 2017-10-30 19:02 | HOSPPROG ---
Hospitalist Progress Note Assessment/Plan: Assessment: 56-year-old male presents with acutely disseminated MAC, CMV colitis, acute immune reconstitution inflammatory syndrome, acute hypotension Plan: # IRIS. Acute, 2/2 recent initiation of ART, increased pred to 60mg 10/30 -d/w Dr. Garrett, she reports he's improving w/ higher dosage of prednisone # Acute hypotension. 2/2 worsening infxn/IRIS, stabilized w/ IVF and tx # Acute metabolic acidosis. 2/2 lactic acid, resolved w/ IVF # Disseminated MAC. Confirmed by biopsy of lymph nodes as well as AFB smear -cont Azithro/Ethambutol/Rifabutin # CMV ileitis. Symptomatically improving, cont valganciclovir 800mg PO BID, stop date 11/09 # AIDS. Opportunistic illness defining infxns, CD4 pending -adjusted ART 2/2 Rx-interactions # Severe generalized weakness and deconditioning. Plan will be to transfer to custodial facility once his clinical issues are resolved # Acute hyponatremia. Severe, 2/2 combination of GI losses, poor oncotic pressure -liberalized fluid restriction to 2L/day -monitor closely -stop NS # Severe protein calorie malnutrition. Evidenced by cachexia, low BMI 17 -Nutritional support, dietary consult # Chronic pain w/ continuous opiate dependency. Cont home dosing, pain currently well controlled -bowel regimen if needed # Anemia. 2/2 chronic inflammatory disease, no e/o blood loss, s/p transfusion Diet. Regular PPx. High risk, lovenox 40 Code. Full Dispo. ADD uncertain, remains ill Subjective: increased fatigue, moving bowels Objective: Vital Signs Temp Pulse Resp BP Pulse Ox 36.3 C 94 15 120/85 H 99 10/30/17 15:13 10/30/17 15:13 10/30/17 15:13 10/30/17 15:13 10/30/17 15:13 Laboratory Results 10/30/17 06:20 10/30/17 06:20 10/29/17 10/30/17 10/31/17 05:59 05:59 05:59 Intake Total 5799 4975 120 Output Total 925 1725 850 Balance 4874 3250 -730 PT 14.7 SEC (12.0-15.0) 10/18/17 23:10 INR 1.13 (0.83-1.16) 10/18/17 23:10 - Physical Exam Constitutional: no apparent distress, not in pain, chronically ill appearing, cachectic, No uncomfortable Cardiovascular: regular rate and rhythym, no murmur, rub, or gallop, No edema Respiratory: no respiratory distress, no rales or rhonchi, clear to auscultation Gastrointestinal: normoactive bowel sounds, soft, non-tender abdomen, no palpable masses, distension (mild) Neurologic: AAOx3 Psychiatric: interacting appropriately, not anxious, not encephalopathic, thought process linear ICD10 Worksheet Patient Problems: Problems Problem Status Onset Abdominal pain Acute Failure to thrive in adult Acute AIDS Acute CMV (cytomegalovirus) Acute Fever Acute Generalized weakness Acute Hyponatremia Acute
[2017-10-31] MEDS: CLOTRIMAZOLE 10 MG TROCHE PO SCH ×5 (05:48→22:00)
[2017-10-31 06:43] LABS: PLATELET COUNT 296 10^3/uL (150-400)
[2017-10-31] MEDS: SODIUM CHLORIDE 1,000 MG TAB PO SCH ×2 (08:15→18:08)
[2017-10-31] MEDS: DRONABINOL 2.5 MG CAP PO SCH (08:16)
[2017-10-31] MEDS: SENNOSIDES 1 TAB PO SCH ×2 (08:16→19:38)
[2017-10-31] MEDS: EMTRICITABINE/TENOFOVIR 200MG/300MG TAB PO SCH (08:16)
[2017-10-31] MEDS: PANTOPRAZOLE SODIUM 40 MG TAB PO SCH (08:16)
[2017-10-31] MEDS: POLYETHYLENE GLYCOL 3350 17 GM PKT PO SCH (08:17)
[2017-10-31] MEDS: SULFAMETHOX/TMP 800/160 MG 1 TAB PO SCH (08:17)
[2017-10-31] MEDS: predniSONE 20 MG TAB PO SCH (08:17)
[2017-10-31] MEDS: ENOXAPARIN 40 MG/0.4 ML SYR SC SCH (08:18)
[2017-10-31] MEDS: Dolutegravir Sodium [Tivicay] 50 MG PO SCH (08:20)
--- NOTE | 2017-10-31 09:58 | PCMIDPN ---
Assessment/Plan: #AIDS: CD4 20 (13%), VL 120 : ARV adjusted to Truvada and Dolutegravir due to drug drug interaction w TAF and Rif --repeat CD4 still pending #CMV ileitis undetectable VL 10/11, continue valganciclovir 800mg PO BID, ANC 6000 , Cr 0.5 --stop date for induction 11/09. #dMAC: Started on 3 drug therapy yesterday with addition of rifabutin to ethambutol and azithromycin # IRIS: suggestive findings: persistent abdominal pain, increased LN size, intermittent hypotension, started on Prednisone. Awaiting CD4 count. # Leukopenia/Anemia: multifactorial AIDS, dMAC, overall stable. # Social: strongly feels does not want to go to SNF now, feels so much better, Discharged from OT today. Told patient I defer to Dr. Kamara for discharge plans but reviewed how he has failed multiple discharges meds Valganciclovir 800mg PO BID Bactrim DS 1 PO daily Zithromax 600mg PO Daily ethambutol 800mg daily Rifabutin 300mg daily Truvada dolutegravir 50mg daily Pred 60mg Daily Microbiology 10/18, 10/19, 10/28 blood cx (2) Neg 10/[address]: smear +AFB, PCR negative for TB; Cx and sensi pending Subjective: He does not want to go to SNF. Patient states he read the statement "patient rights"and he has a right to refused to go to a SNF Minimal abdominal pain No nausea, appetite back Patient used to weigh 200# Objective: Vital Signs Temp Pulse Resp BP Pulse Ox 36.3 C 88 15 118/85 H 100 10/31/17 04:00 10/31/17 08:00 10/31/17 08:00 10/31/17 08:00 10/31/17 08:00 Laboratory Results 10/31/17 06:10 10/31/17 06:10 10/30/17 10/31/17 11/01/17 05:59 05:59 05:59 Intake Total 4975 1500 690 Output Total 1725 2050 275 Balance 3250 -550 415 - Physical Exam General Appearance: alert, no apparent distress EENT: No thrush Respiratory: No accessory muscle use Neck: supple Cardiac/Chest: regular rate, rhythm Extremities: No pedal edema Abdomen: normal bowel sounds, non-tender, soft Skin: No rash Neuro/Psych: alert, normal mood/affect, oriented x 3 - Time Spent With Patient Time Spent with Patient: greater than 25 minutes Time Spent with Patient: Greater than 25 minutes spent on this patients care, greater than 50% of time spent counseling, educating, and coordinating care regarding the above mentioned plan. ICD10 Worksheet Patient Problems: Problems Problem Status Onset AIDS Acute Failure to thrive in adult Acute Fever Acute Generalized weakness Acute Hyponatremia Acute Abdominal pain Acute CMV (cytomegalovirus) Acute
[2017-10-31] MEDS: RIFABUTIN 150 MG CAP PO SCH (11:50)
[2017-10-31] MEDS: ETHAMBUTOL HCL 400 MG TAB PO SCH (11:51)
[2017-10-31] MEDS: AZITHROMYCIN 600 MG TAB PO SCH (11:51)
--- NOTE | 2017-10-31 14:25 | ASMTCMCOM ---
CM Note CM Note Notes: 10/31/2017 Case Management Note Discussed pt during rounds this morning. Pt expresses a significant improvement in his condition and states he no longer feels SNF rehab is necessary. Previous d/c plan was [facility] with [facility] ([phone]). Pt is current with [facility]. Case Management d/c poc: to be determined. SNF rehab vs home with home care. [facility] to follow pt either way. Case Management to contact [facility] piano case maker Osiris Jhaveri [phone] with d/c plan. Pt has been approved for 30 day SNF stay by [facility]. Case Management to follow. Date Signed: 10/31/2017 02:24 PM Electronically Signed By:Isaura Gardiner RN
--- NOTE | 2017-10-31 19:05 | HOSPPROG ---
Hospitalist Progress Note Assessment/Plan: Assessment: 56-year-old male presents with acutely disseminated MAC, CMV colitis, acute immune reconstitution inflammatory syndrome, acute hypotension Plan: # IRIS. Acute, 2/2 recent initiation of ART, increased pred to 60mg 10/30 -improving w/ higher dosage of prednisone # Acute hypotension. 2/2 worsening infxn/IRIS, stabilized w/ IVF and tx # Acute metabolic acidosis. 2/2 lactic acid, resolved w/ IVF # Disseminated MAC. Confirmed by biopsy of lymph nodes as well as AFB smear -cont Azithro/Ethambutol/Rifabutin # CMV ileitis. Symptomatically improving, cont valganciclovir 800mg PO BID, stop date 11/09 # AIDS. Opportunistic illness defining infxns, CD4 pending -adjusted ART 2/2 Rx-interactions # Severe generalized weakness and deconditioning. Patient's performance status has significantly improved s/p stabilization of above, OT does not rec SNF, patient prefers not to go to SNF, will d/w Dr. Kamara in AM # Acute hyponatremia. Severe, 2/2 combination of GI losses, poor oncotic pressure -liberalized fluid restriction to 2L/day -monitor closely # Severe protein calorie malnutrition. Evidenced by cachexia, low BMI 17 -Nutritional support, dietary consult # Chronic pain w/ continuous opiate dependency. Cont home dosing, pain currently well controlled -bowel regimen if needed # Anemia. 2/2 chronic inflammatory disease, no e/o blood loss, s/p transfusion -Hgb stable 8.2 Diet. Regular PPx. High risk, lovenox 40 Code. Full Dispo. ADD 11/01 vs. 11/02 Subjective: patient reports that he is feeling great, ambulating independently Objective: Vital Signs Temp Pulse Resp BP Pulse Ox 36.3 C 70 18 124/83 H 98 10/31/17 16:01 10/31/17 16:01 10/31/17 16:01 10/31/17 16:01 10/31/17 16:01 Laboratory Results 10/31/17 06:10 10/31/17 06:10 10/30/17 10/31/17 11/01/17 05:59 05:59 05:59 Intake Total 4975 1500 1930 Output Total 1725 2050 475 Balance 3250 -550 1455 PT 14.7 SEC (12.0-15.0) 10/18/17 23:10 INR 1.13 (0.83-1.16) 10/18/17 23:10 - Physical Exam Constitutional: no apparent distress, not in pain, chronically ill appearing, cachectic, No uncomfortable Cardiovascular: regular rate and rhythym, no murmur, rub, or gallop, No edema Respiratory: no respiratory distress, no rales or rhonchi, clear to auscultation Gastrointestinal: normoactive bowel sounds, soft, non-tender abdomen, no palpable masses, No distension Neurologic: AAOx3 Psychiatric: interacting appropriately, not anxious, not encephalopathic, thought process linear ICD10 Worksheet Patient Problems: Problems Problem Status Onset Abdominal pain Acute Failure to thrive in adult Acute AIDS Acute CMV (cytomegalovirus) Acute Fever Acute Generalized weakness Acute Hyponatremia Acute
[2017-10-31] MEDS: MELATONIN 3 MG TAB PO SCH (19:39)
[2017-11-01] MEDS: CLOTRIMAZOLE 10 MG TROCHE PO SCH ×5 (05:13→21:43)
[2017-11-01 05:30] LABS: PLATELET COUNT 306 10^3/uL (150-400)
[2017-11-01] MEDS: PANTOPRAZOLE SODIUM 40 MG TAB PO SCH (09:11)
[2017-11-01] MEDS: predniSONE 20 MG TAB PO SCH (09:11)
[2017-11-01] MEDS: ENOXAPARIN 40 MG/0.4 ML SYR SC SCH (09:11)
[2017-11-01] MEDS: SODIUM CHLORIDE 1,000 MG TAB PO SCH (09:11)
[2017-11-01] MEDS: SENNOSIDES 1 TAB PO SCH ×2 (09:11→21:43)
[2017-11-01] MEDS: EMTRICITABINE/TENOFOVIR 200MG/300MG TAB PO SCH (09:12)
[2017-11-01] MEDS: SULFAMETHOX/TMP 800/160 MG 1 TAB PO SCH (09:12)
[2017-11-01] MEDS: POLYETHYLENE GLYCOL 3350 17 GM PKT PO SCH (09:12)
[2017-11-01] MEDS: Dolutegravir Sodium [Tivicay] 50 MG PO SCH (09:13)
[2017-11-01 10:09] LABS: %CD3 (T CELLS) 61 % (58-86); %CD8 (T CELLS) 45 % (11-40); 4/8 RATIO 0.2 (>=0.9); CD3 (T CELLS) 82 cells/mcL (550-2202); CD4 (T CELLS) 11 cells/mcL (365-1437); CD45 TOTAL LYMPH COUNT 0.13 thou/mcL (0.82-2.84); CD8 (T CELLS) 60 cells/mcL (117-846)
--- NOTE | 2017-11-01 10:13 | PCMIDPN ---
Assessment/Plan: 1. Leukopenia: The patient has 3 marrow suppressive drugs now, and am concerned about his progressive leukopenia over the past 48 hr. For now, will decrease Valcyte to 900 mg p.o. Daily (suspect he has had enough of treatment dose), change Bactrim DS to Wednesday, and continue rifabutin as is. He may need Neupogen if his ANC falls below a 1000. Spent quite some time talking to the patient about this today. Suspect he will be here this week to follow his white blood cell count over time and to ensure that he is not developing other symptoms suggestive of rifabutin toxicity. 1.. Disseminated MAC: Continue 3 drug therapy with ethambutol 800 mg p.o. Daily, azithromycin 600 mg p.o. Daily, and rifabutin 300 mg p.o. Daily. Continue prednisone 60 mg p.o. Daily for immune reconstitution x1 week, then back down by 10 mg each week over 6 weeks. 3. CMV terminal ileitis: As per the above, will back down on the Valcyte 900 mg p.o. Daily, given evidence of marrow toxicity. 4. Aids: Continue Dolutegravir and Truvada. (Not Descovy given drug interaction with TAF and rifabutin) 5. Prophylaxis: Continue Bactrim DS now Q Wednesday for Pneumocystis prophylaxis. 6. Oral candidiasis: Continue clotrimazole troches. 7. Disposition: The patient is now requesting to go home instead of a fpc facility. He is feeling much better, and if he continues to do well, with stabilization of his white blood cell count, etc, I suspect he will be able to go home at the end of the week. Will need to extensively teach the patient and his partner about his medications, and medication adherence. Will also need to teach his partner how to administer Neupogen if he ends up needing this. I will call his partner today to fill him in on the plan. 8. 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 Stable. Over 25 min was spent with this patient today. Subjective: Patient feels the best he has felt in days. He is eating, and states "my abdominal pain is gone." Explained to him that the steroids have a lot to do with that. Talked to him at length about his falling white blood cell count, and the need to remain in the hospital. Objective: Valcyte 900 mg p.o. Twice daily Ethambutol 800 mg p.o. Daily Azithromycin 600 mg p.o. Daily Rifabutin 300 mg p.o. Daily Prednisone 60 mg day 08/14 Bactrim DS daily Truvada/Dolutegravir daily Clotrimazole Vital Signs Temp Pulse Resp BP Pulse Ox 34.7 C L 63 16 135/89 H 98 11/01/17 08:25 11/01/17 08:25 11/01/17 08:25 11/01/17 08:25 11/01/17 08:25 Laboratory Results 11/01/17 05:20 11/01/17 05:20 10/31/17 11/01/17 11/02/17 05:59 05:59 05:59 Intake Total 1500 2730 Output Total 2050 1275 Balance -550 1455 T-cell count pending - Physical Exam General Appearance: alert, no apparent distress EENT: pharynx normal, No scleral icterus, No thrush Respiratory: lungs clear Extremities: other (PICC line right upper extremity looks fine) Abdomen: non-tender, soft Skin: No rash Neuro/Psych: oriented x 3 ICD10 Worksheet Patient Problems: Problems Problem Status Onset AIDS Acute Failure to thrive in adult Acute Fever Acute Generalized weakness Acute Hyponatremia Acute Abdominal pain Acute CMV (cytomegalovirus) Acute
[2017-11-01] MEDS: ETHAMBUTOL HCL 400 MG TAB PO SCH (12:24)
[2017-11-01] MEDS: AZITHROMYCIN 600 MG TAB PO SCH (12:25)
--- NOTE | 2017-11-01 12:29 | ASMTCMCOM ---
CM Note CM Note Notes: Pts case discussed in tx rounds. Dr. Whitehead and Dr. Kamara spoke this AM. Pt no longer needs a SNF. Pt has been observed ambulating safetly around the unit. Pt will most likely stay at [facility] until the end of this week. CM notified Osiris Jhaveri [phone] of the new d/c plan. CM updated [facility] and [facility]. CM to follow. Plan: Home w/ [facility] Date Signed: 11/01/2017 12:28 PM Electronically Signed By:JOHN Wen
[2017-11-01] MEDS: RIFABUTIN 150 MG CAP PO SCH (12:30)
--- NOTE | 2017-11-01 17:44 | HOSPPROG ---
Hospitalist Progress Note Assessment/Plan: Assessment: 56-year-old male presents with acute abdominal pain 2/2 acutely disseminated MAC, CMV colitis, acute immune reconstitution inflammatory syndrome , w/ recent diagnosis of HIV/AIDS, c/b acutely worsening leukopenia over past 48hrs Plan: # Leukopenia. Acutely worsening over past 48hrs, initial leukocytosis likely 2/ 2 combination in steroid increase + worsening infxn/IRIS, but has been precipitously falling since then -d/w Dr. Kamara, she advises that this may be 2/2 3 marrow-suppressive agents ( bactrim, rifabutin, valganciclovir) and has recommended dose adjustment of bactrim and valgan. -given fatal risk of additional opportunistic infxns if he becomes neutropenic, plan to continue hospitalization w/ daily CBC monitoring and possible neupogen if ANC < 1000 # IRIS. Acute, 2/2 recent initiation of ART, resulting in fevers and then hypothermia, increased pred to 60mg 10/30 -improving w/ higher dosage of prednisone -cont D#08/14 @ 60mg, then reduce to 10mg daily x 6 weeks # Disseminated MAC. Confirmed by biopsy of lymph nodes as well as AFB smear, causing his severe abd pain on presentation -cont Azithro/Ethambutol/Rifabutin # CMV ileitis. Symptomatically improved, adjusted valganciclovir dosing to 900mg daily w/ stop date 11/09 # AIDS. Opportunistic illness defining infxns, CD4 pending -adjusted ART 2/2 Rx-interactions -Bactrim DS for ppx MWF # Acute hypotension. 2/2 worsening infxn/IRIS, stabilized w/ IVF and tx # Acute metabolic acidosis. 2/2 lactic acid, resolved w/ IVF # Severe generalized weakness and deconditioning. Patient's performance status has significantly improved s/p stabilization of above, plan for DC to home setting once leukopenia stabilized # Acute hyponatremia. Severe, 2/2 combination of GI losses, poor oncotic pressure -liberalized fluid restriction to 2L/day -discontinued salt tabs 11/01 -monitor closely # Severe protein calorie malnutrition. Evidenced by cachexia, low BMI 17 -Nutritional support, dietary consult # Chronic pain w/ continuous opiate dependency. Cont home dosing of oxycontin 10 bid, pain currently well controlled w/ very minimal use of PRN oxy IR -PRN pain Rx was primarily required for the MAC pain, which has now subsided -bowel regimen if needed # Anemia. 2/2 chronic inflammatory disease, no e/o blood loss, s/p transfusion -Hgb stable 9 Diet. Regular PPx. High risk, lovenox 40 Code. Full Dispo. ADD unclear, requiring stabilization of his leukopenia High level of medical complexity, high risk of worsening morbidity/mortality 2/ 2 issues outlined above. Subjective: patient reports abd pain abated Objective: Vital Signs Temp Pulse Resp BP Pulse Ox 36.6 C 71 16 118/77 97 11/01/17 16:32 11/01/17 16:32 11/01/17 16:32 11/01/17 16:32 11/01/17 16:32 Microbiology 10/20/17 07:37 Mycobacterial Smear (FRANK) - Final Other - Lymph Node Laboratory Results 11/01/17 05:20 11/01/17 05:20 10/31/17 11/01/17 11/02/17 05:59 05:59 05:59 Intake Total 1500 2730 Output Total 2050 1275 350 Balance -550 1455 -350 PT 14.7 SEC (12.0-15.0) 10/18/17 23:10 INR 1.13 (0.83-1.16) 10/18/17 23:10 - Physical Exam Constitutional: no apparent distress, not in pain, chronically ill appearing, cachectic, No uncomfortable Cardiovascular: regular rate and rhythym, no murmur, rub, or gallop, No edema Respiratory: no respiratory distress, no rales or rhonchi, clear to auscultation Gastrointestinal: normoactive bowel sounds, soft, non-tender abdomen, no palpable masses, No distension Neurologic: AAOx3, sensation intact bilaterally, No weakness Psychiatric: interacting appropriately, not anxious, not encephalopathic, thought process linear ICD10 Worksheet Patient Problems: Problems Problem Status Onset Abdominal pain Acute Failure to thrive in adult Acute AIDS Acute CMV (cytomegalovirus) Acute Fever Acute Generalized weakness Acute Hyponatremia Acute
[2017-11-01] MEDS: MELATONIN 3 MG TAB PO SCH (21:43)
[2017-11-02] MEDS: CLOTRIMAZOLE 10 MG TROCHE PO SCH ×5 (05:21→21:27)
[2017-11-02 07:04] LABS: PLATELET COUNT 326 10^3/uL (150-400)
--- NOTE | 2017-11-02 09:16 | HOSPPROG ---
Hospitalist Progress Note Assessment/Plan: # AIDS - CD4 11 - cont dolutegravir and truvada - bactrim ppx # leukopenia - valcyte decreased, also on rifabutin and bactrim which may suppress marrow - follow CBC daily; may need neupogen # disseminated MAC - cont ethambutol, azith, rifabutin # CMV ileitis - cont valcyte # IRIS - pred 60 mg D#5/7, then 10mg daily x 6 weeks # oral candidiasis - clotrimazole # hypotension - resolved # lactic acidosis - resolved # hypoNa - hypovolemic; resolving # anemia - stable # SPCM with cachexia - nutrition # chronic pain with continuous narcotic use - cont oxycontin + oxy IR prn # debility - much better; wants to dc home Subjective: feels well today; waiting for his meds Objective: Vital Signs Temp Pulse Resp BP Pulse Ox 36.6 C 77 18 138/104 H 100 11/02/17 07:43 11/02/17 07:43 11/02/17 07:43 11/02/17 07:43 11/02/17 07:43 Microbiology 10/20/17 07:37 Mycobacterial Smear (FRANK) - Final Other - Lymph Node Laboratory Results 11/02/17 06:10 11/02/17 06:10 11/01/17 11/02/17 11/03/17 05:59 05:59 05:59 Intake Total 2730 700 Output Total 1275 1200 Balance 1455 -500 PT 14.7 SEC (12.0-15.0) 10/18/17 23:10 INR 1.13 (0.83-1.16) 10/18/17 23:[address], CXR reviewed - Physical Exam Constitutional: no apparent distress Cardiovascular: regular rate and rhythym, no murmur, rub, or gallop Respiratory: no respiratory distress, no rales or rhonchi Gastrointestinal: soft, non-tender abdomen, no palpable masses, No guarding, No rebound, No distension ICD10 Worksheet Patient Problems: Problems Problem Status Onset Abdominal pain Acute Failure to thrive in adult Acute AIDS Acute CMV (cytomegalovirus) Acute Fever Acute Generalized weakness Acute Hyponatremia Acute
[2017-11-02] MEDS: POLYETHYLENE GLYCOL 3350 17 GM PKT PO SCH (09:18)
[2017-11-02] MEDS: ENOXAPARIN 40 MG/0.4 ML SYR SC SCH (09:18)
[2017-11-02] MEDS: EMTRICITABINE/TENOFOVIR 200MG/300MG TAB PO SCH (09:18)
[2017-11-02] MEDS: SENNOSIDES 1 TAB PO SCH ×2 (09:18→21:27)
[2017-11-02] MEDS: PANTOPRAZOLE SODIUM 40 MG TAB PO SCH (09:18)
[2017-11-02] MEDS: predniSONE 20 MG TAB PO SCH (09:19)
[2017-11-02] MEDS: Dolutegravir Sodium [Tivicay] 50 MG PO SCH (09:20)
--- NOTE | 2017-11-02 10:04 | PCMIDPN ---
Assessment/Plan: 1. Leukopenia: White blood cells are stable today. Told the patient if things are stable over the next 48 hr, he could potentially go home on . We are trying to arrange for all of his medications as an outpatient, and his primary provider, Joceline Turpin will see him tomorrow to review the medicines with him in anticipation of discharge on . Valcyte now has been changed to 900 daily, Bactrim DS is Wednesday. No other evidence of rifabutin toxicity. 1.. Disseminated MAC: Continue 3 drug therapy with ethambutol 800 mg p.o. Daily, azithromycin 600 mg p.o. Daily, and rifabutin 300 mg p.o. Daily. Continue prednisone 60 mg p.o. Daily for immune reconstitution x1 week, then back down by 10 mg each week over 6 weeks. 3. CMV terminal ileitis: As per the above, will back down on the Valcyte 900 mg p.o. Daily, given evidence of marrow toxicity. 4. Aids: Continue Dolutegravir and Truvada. (Not Descovy given drug interaction with TAF and rifabutin) 5. Prophylaxis: Continue Bactrim DS now Q Wednesday for Pneumocystis prophylaxis. 6. Oral candidiasis: Continue clotrimazole troches. 7. Disposition: As per the above, if his white blood cell count remains stable, potentially home on . 8. 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 Stable. 11/02/17 10:01 Subjective: Patient says he feels great. Has a "strange feeling"in his lower abdomen, but states that it is not pain. Ate all of his breakfast, and had large bowel movement yesterday. In excellent spirits. Long conversation about his disposition. Objective: Truvada/Dolutegravir Bactrim DS Q Wednesday Ethambutol 800 mg daily Rifabutin 300 mg p.o. Daily Azithromycin 600 mg p.o. Daily Clotrimazole Valcyte 900 mg p.o. Daily Prednisone 60 mg daily day 09/13 Vital Signs Temp Pulse Resp BP Pulse Ox 36.6 C 77 18 138/104 H 100 11/02/17 07:43 11/02/17 07:43 11/02/17 07:43 11/02/17 07:43 11/02/17 07:43 Microbiology 10/20/17 07:37 Mycobacterial Smear (FRANK) - Final Other - Lymph Node Laboratory Results 11/02/17 06:10 11/02/17 06:10 11/01/17 11/02/17 11/03/17 05:59 05:59 05:59 Intake Total 2730 700 Output Total 1275 1200 Balance 1455 -500 - Physical Exam General Appearance: alert, no apparent distress EENT: pharynx normal, No thrush Respiratory: lungs clear Extremities: other (PICC line right upper extremity looks fine) Abdomen: non-tender, soft, other (Normoactive bowel sounds) ICD10 Worksheet Patient Problems: Problems Problem Status Onset AIDS Acute Failure to thrive in adult Acute Fever Acute Generalized weakness Acute Hyponatremia Acute Abdominal pain Acute CMV (cytomegalovirus) Acute
[2017-11-02] MEDS: RIFABUTIN 150 MG CAP PO SCH (13:47)
[2017-11-02] MEDS: ETHAMBUTOL HCL 400 MG TAB PO SCH (13:48)
[2017-11-02] MEDS: AZITHROMYCIN 600 MG TAB PO SCH (13:48)
[2017-11-02] MEDS: MELATONIN 3 MG TAB PO SCH (21:27)
[2017-11-03 05:15] LABS: PLATELET COUNT 348 10^3/uL (150-400)
[2017-11-03] MEDS: CLOTRIMAZOLE 10 MG TROCHE PO SCH ×4 (06:37→18:27)
[2017-11-03] MEDS ORDERED: SULFAMETHOX/TMP 800/160 MG 1 TAB PO SCH (08:00)
[2017-11-03] MEDS: ENOXAPARIN 40 MG/0.4 ML SYR SC SCH (09:02)
[2017-11-03] MEDS: SENNOSIDES 1 TAB PO SCH ×2 (09:02→20:22)
[2017-11-03] MEDS: PANTOPRAZOLE SODIUM 40 MG TAB PO SCH (09:02)
[2017-11-03] MEDS: EMTRICITABINE/TENOFOVIR 200MG/300MG TAB PO SCH (09:02)
[2017-11-03] MEDS: predniSONE 20 MG TAB PO SCH (09:02)
[2017-11-03] MEDS: POLYETHYLENE GLYCOL 3350 17 GM PKT PO SCH (09:03)
[2017-11-03] MEDS: Dolutegravir Sodium [Tivicay] 50 MG PO SCH (09:04)
--- NOTE | 2017-11-03 09:53 | HOSPPROG ---
Hospitalist Progress Note Assessment/Plan: # AIDS - CD4 11 - cont dolutegravir and truvada - bactrim ppx # leukopenia - valcyte decreased, also on rifabutin and bactrim which may suppress marrow - has stabilized - follow CBC daily # disseminated MAC - cont ethambutol, azith, rifabutin # CMV ileitis - cont valcyte # IRIS - pred 60 mg D#6/7, then 10mg daily x 6 weeks # oral candidiasis - clotrimazole # hypotension - resolved # lactic acidosis - resolved # hypoNa - hypovolemic; resolving # anemia - stable # SPCM with cachexia - nutrition # chronic pain with continuous narcotic use - cont oxycontin + oxy IR prn # debility - much better; wants to dc home Subjective: eating well; no complaints; afebrile overnight Objective: Vital Signs Temp Pulse Resp BP Pulse Ox 36.3 C 75 13 125/81 H 98 11/03/17 08:00 11/03/17 08:00 11/03/17 08:00 11/03/17 08:00 11/03/17 08:00 Microbiology 10/28/17 14:25 Blood Culture - Final Blood 10/28/17 13:35 Blood Culture - Final Blood 10/20/17 07:37 Mycobacterial Smear (FRANK) - Final Other - Other 10/20/17 07:37 Mycobacterial Smear (FRANK) - Final Other - Lymph Node Laboratory Results 11/03/17 04:55 11/02/17 06:10 11/02/17 11/03/17 11/04/17 05:59 05:59 05:59 Intake Total 700 1400 Output Total 1200 250 Balance -500 1150 PT 14.7 SEC (12.0-15.0) 10/18/17 23:10 INR 1.13 (0.83-1.16) 10/18/17 23:10 - Physical Exam Constitutional: no apparent distress, appears nourished Cardiovascular: regular rate and rhythym, no murmur, rub, or gallop Respiratory: no respiratory distress, no rales or rhonchi, clear to auscultation Gastrointestinal: soft, non-tender abdomen, no palpable masses, No guarding, No rebound, No distension ICD10 Worksheet Patient Problems: Problems Problem Status Onset Abdominal pain Acute Failure to thrive in adult Acute AIDS Acute CMV (cytomegalovirus) Acute Fever Acute Generalized weakness Acute Hyponatremia Acute
--- NOTE | 2017-11-03 09:59 | PCMIDPN ---
Assessment/Plan: #AIDS: CD4 11 (8%), VL 120 :Continue Truvada and Dolutegravir. Slight decline in CD4 likely due to acute illness and could be related to toxicity from Bactrim and Valganciclovir #CMV ileitis undetectable VL 10/11, Valganciclovir at 800mg PO daily #dMAC: Continue 3 drug therapy rifabutin/ethambutol/azithromycin # IRIS: suggestive findings: persistent abdominal pain, increased LN size, intermittent hypotension, started on Prednisone. Since Pred added, patient feels much better # Worsening Leukopenia, slight further decline in ANC today: Dr. Kamara adjusted multiple meds to help minimize WBC toxicity, may take a couple weeks for complete reversal of effect. ANC today is 1400 still above critical level. Continue to monitor. CBC in AM tomorrow. # Social: tentatively plan dc tomorrow meds Valganciclovir 800mg PO daily Bactrim DS 1 PO TIW Zithromax 600mg PO Daily ethambutol 800mg daily Rifabutin 300mg daily Truvada dolutegravir 50mg daily Pred 60mg Daily Microbiology 10/18, 10/19, 10/28 blood cx (2) Neg 10/[address]: smear +AFB, PCR negative for TB; Cx and sensi pending Subjective: very cheerful and grateful for care at [facility] Objective: Vital Signs Temp Pulse Resp BP Pulse Ox 36.3 C 75 13 125/81 H 98 11/03/17 08:00 11/03/17 08:00 11/03/17 08:00 11/03/17 08:00 11/03/17 08:00 Microbiology 10/28/17 14:25 Blood Culture - Final Blood 10/28/17 13:35 Blood Culture - Final Blood 10/20/17 07:37 Mycobacterial Smear (FRANK) - Final Other - Other 10/20/17 07:37 Mycobacterial Smear (FRANK) - Final Other - Lymph Node Laboratory Results 11/03/17 04:55 11/02/17 06:10 Laboratory Tests 10/31/17 11/01/17 11/02/17 06:10 05:20 06:10 Absolute Seg Neuts 2.37 1.62 L 1.76 11/03/17 04:55 Absolute Seg Neuts 1.46 L 11/02/17 11/03/1711/04/18 05:59 05:59 05:59 Intake Total 700 1400 Output Total 1200 250 Balance -500 1150 Gen: fairly vigorous appearing NAD o/p no thrush CV RRR Chest: breathing easy clear B Abd: soft NT, +BS Ext no edema Skin no rash ICD10 Worksheet Patient Problems: Problems Problem Status Onset AIDS Acute Failure to thrive in adult Acute Fever Acute Generalized weakness Acute Hyponatremia Acute Abdominal pain Acute CMV (cytomegalovirus) Acute
--- NOTE | 2017-11-03 12:32 | ASMTCMCOM ---
CM Note CM Note Notes: 11/03/2017 Case Management Note Met w/pt during rounds this morning. Faxed updates to [facility] and [facility]. Anticipating d/c in the next few days. Case Management d/c poc: resuming [facility] with the addition of [facility]. Case Management to follow. Date Signed: 11/03/2017 12:31 PM Electronically Signed By:Isaura Gardiner RN
[2017-11-03] MEDS: ETHAMBUTOL HCL 400 MG TAB PO SCH (13:09)
[2017-11-03] MEDS: AZITHROMYCIN 600 MG TAB PO SCH (13:09)
[2017-11-03] MEDS: ACETAMINOPHEN 500 MG TAB PO PRN (13:14)
[2017-11-03] MEDS: RIFABUTIN 150 MG CAP PO SCH (13:14)
[2017-11-03] MEDS: oxyCODONE IR 5 MG TAB PO PRN (20:21)
[2017-11-03] MEDS: MELATONIN 3 MG TAB PO SCH (20:23)
[2017-11-04] MEDS: oxyCODONE IR 5 MG TAB PO PRN (02:29)
[2017-11-04] MEDS: CLOTRIMAZOLE 10 MG TROCHE PO SCH ×2 (07:09→09:25)
[2017-11-04 07:36] VITALS: BP 111/72
[2017-11-04] MEDS: ENOXAPARIN 40 MG/0.4 ML SYR SC SCH (09:24)
[2017-11-04] MEDS: POLYETHYLENE GLYCOL 3350 17 GM PKT PO SCH (09:24)
[2017-11-04] MEDS: predniSONE 20 MG TAB PO SCH (09:25)
[2017-11-04] MEDS: SENNOSIDES 1 TAB PO SCH (09:25)
[2017-11-04] MEDS: EMTRICITABINE/TENOFOVIR 200MG/300MG TAB PO SCH (09:25)
[2017-11-04] MEDS: Dolutegravir Sodium [Tivicay] 50 MG PO SCH (09:27)
[2017-11-04] MEDS: PANTOPRAZOLE SODIUM 40 MG TAB PO SCH (09:35)
[2017-11-04] MEDS: ACETAMINOPHEN 500 MG TAB PO PRN (09:41)
[2017-11-04 09:48] LABS: PLATELET COUNT 389 10^3/uL (150-400)
--- NOTE | 2017-11-04 11:41 | PDIAF ---
- Diagnosis Diagnosis: AIDS, disseminated MAC, CMV ileitis Code Status: Full Code - Medication Management Discharge Medications: Medications to Continue on Transfer Carboxymethylcellulose 1% [Refresh Celluvisc (*)] 1 drop EACHEYE DAILY PRN 09/28 [Last Taken Unknown] Cholecalciferol Vit D3 [Vitamin D3 2000 units tab (OTC)] 2,000 units PO DAILY [Last Taken 09/28/17] Dolutegravir Sodium [Tivicay] 50 mg PO DAILY 09/28/17 [Last Taken 09/27/17] Emtricitabine/Tenofov Alafenam [Descovy 200-25 mg Tablet] 1 each PO DAILY [Last Taken 09/27/17] Sulfamethox/Tmp 800/160 mg [Bactrim DS] 1 tab PO DAILY 09/28/17 [Last Taken ] Vitamin B Complex [Vitamin B Complex (OTC)] 1 each PO DAILY 09/28/17 [Last Taken 09/27/17] Omeprazole 20 mg PO DAILY #30 capsule. 10/05/17 [Last Taken Unknown] Acetaminophen [Tylenol ES 500 mg (*)] 500 mg PO Q6 PRN 10/20/17 [Last Taken Unknown] Azithromycin [Zithromax] 600 mg PO DAILY@1200 tab 11/04/17 [Last Taken Unknown] Emtricitabine/Tenofovir [Truvada 200MG/300MG (*)] 1 tab PO DAILY tab 11/04/17 [ Last Taken Unknown] Ethambutol HCl [Myambutol 400 MG (*)] 800 mg PO DAILY@1200 tab 11/04/17 [Last Taken Unknown] Polyethylene Glycol 3350 [Miralax 17 gm (*)] 17 gm PO DAILY pkt 11/04/17 [Last Taken Unknown] Rifabutin [Mycobutin] 300 mg PO DAILY@1200 cap 11/04/17 [Last Taken Unknown] oxyCODONE IR [Oxycodone Ir (*)] 5 - 10 mg PO Q3 PRN tab 11/04/17 [Last Taken Unknown] predniSONE 60 mg PO AD tablet 11/04/17 [Last Taken Unknown] valGANciclovir [ValCYTE] 900 mg PO DAILY@0800 tab 11/04/17 [Last Taken Unknown] Discharge Medications: Refer to the Discharge Home Medication list for PRN reason. - Orders Services needed: Home Care, Registered Nurse Home Care Face to Face: I certify that this patient was under my care and that I had the required [id number] encounter meeting the encounter requirements on the discharge day. My findings support the fact that the patient is homebound as defined in Home Care Face to Face Continued: CMS Chapter 7 Medicare Benefits Manual 30.1.1 , The condition of the patient is such that there exists a normal inability to leave home and consequently, leaving home would require a considerable and taxing effort. Isolation Type: None - Follow Up Care Current Providers and Referrals: Joceline Turpin NP [Primary Care Provider] - As per Instructions
[2017-11-04] MEDS: AZITHROMYCIN 600 MG TAB PO SCH (11:59)
[2017-11-04] MEDS: RIFABUTIN 150 MG CAP PO SCH (12:00)
[2017-11-04] MEDS: ETHAMBUTOL HCL 400 MG TAB PO SCH (12:00)
--- NOTE | 2017-11-04 12:05 | PCMIDPN ---
Assessment/Plan: 1. Leukopenia: Resolved with interventions to medications as outlined 2 days ago! Does not need Neupogen. 1.. Disseminated MAC: Continue 3 drug therapy with ethambutol 800 mg p.o. Daily, azithromycin 600 mg p.o. Daily, and rifabutin 300 mg p.o. Daily. Continue prednisone 60 mg p.o. Daily for immune reconstitution x1 week, then back down by 10 mg each week over 6 weeks. 3. CMV terminal ileitis: As per the above, will back down on the Valcyte 900 mg p.o. Daily, given evidence of marrow toxicity. 4. Aids: Continue Dolutegravir and Truvada. (Not Descovy given drug interaction with TAF and rifabutin) 5. Prophylaxis: Continue Bactrim DS now Q Wednesday for Pneumocystis prophylaxis. 6. Oral candidiasis: Continue clotrimazole troches. 7. Disposition: As per the above, if his white blood cell count remains stable, potentially home on . 8. Anemia: Multifactorial. This will improve with time. Subjective: Going home! White blood cell count up to 4.9! Patient is dressed and ready to leave. Feeling constipated, but a plan is in place to deal with that. Joceline Turpin, the patient's excellent primary provider, came early this morning as well as yesterday, and reviewed everything with the patient and his . They are very clear with the plan. Objective: Truvada/Dolutegravir Bactrim DS Q Wednesday Rifabutin 300 mg daily Ethambutol 800 mg p.o. Daily Azithromycin 600 mg p.o. Daily Clotrimazole Prednisone taper Vital Signs Temp Pulse Resp BP Pulse Ox 36.7 C 69 18 111/72 98 11/04/17 07:35 11/04/17 07:35 11/04/17 07:35 11/04/17 07:35 11/04/17 07:35 Microbiology 10/20/17 07:37 Mycobacterial Smear (FRANK) - Final Other - Other Laboratory Results 11/04/17 09:30 11/04/17 06:25 11/03/17 11/04/17 11/05/17 05:59 05:59 05:59 Intake Total 1400 800 Output Total 250 350 Balance 1150 450 - Physical Exam General Appearance: alert, no apparent distress EENT: pharynx normal, No thrush Extremities: other (PICC line has been removed) Skin: No rash ICD10 Worksheet Patient Problems: Problems Problem Status Onset AIDS Acute Failure to thrive in adult Acute Fever Acute Generalized weakness Acute Hyponatremia Acute Abdominal pain Acute CMV (cytomegalovirus) Acute
--- NOTE | 2017-11-04 12:22 | ASDISCHSUM ---
Discharge Information Plan Status:Home with Home Health Medically Cleared to Leave:11/04/2017 Discharge Date:11/04/2017 12:12 PM D/C Disposition:Home Health Service [facility] D/C Disposition:Home, Routine, Self-Care Projected Discharge Date:11/02/2017 11:00 AM Transportation at D/C:Family Discharge Delay Reason: Follow-Up Date:11/02/2017 11:00 AM Discharge Slot: Final Diagnosis: Placement Information Referral Type:*Detention/SNF Referral ID:[id number] Provider Name: Address 1: Phone Number: Address 2: Fax Number: City: Selection Factors: State: Referral Type:Palliative Care Referral ID:[id number] Provider Name:[facility] Address 1:[address] Phone Number: Address 2:[address] Fax Number: [facility]:[place] Selection Factors: State:[place] Referral Type:*Home Health Care Services Referral ID:[id number] Provider Name:[facility] Address 1:[address] Phone Number: Address 2:[address] Fax Number: [facility]:[place] Selection Factors: State:[place] Patient Contact Information Contact Name:ALAN Relationship:Life Partner Address:[facility] [address] Work Phone: City:[place] Alternate Phone: [facility]/Zip Code:[place] [address] Email: Financial Information Financial Class:Medicaid Primary Plan Desc:MEDICAID HEALTH FIRST [place] IP Primary Plan Number:[id number] Secondary Plan Desc: Secondary Plan Number: Assessment Information LACE LACE Length of stay for Answers: 14 days or more current admission Acuity / Level of Answers: Yes Care: Did the patient have an inpatient admission? Comorbidities - select Answers: AIDS all that apply Other Notes: GERD. constipation, chr nilda c anemia # of Emergency department Answers: 1-2 visits in the last 6 months Score: 16 Date Signed: 11/04/2017 12:20 PM Electronically Signed By:Isaura Gardiner RN [facility] CM Progress Note CM Note CM Note Notes: 10/19/2017 Case Management Note Met pt during rounds this morning. Pt was admitted for fever, AIDS and hypotension. Pt to have CT of abdomen today. Pt lives in [place] but plans to relocate to [place]. Pt has supportive life partner Niles [phone]. Pt is [facility] with [facility]. There is a PT eval pending. Referred pt to [facility] for support after discharge. Case Management d/c poc: to be determined. Home Care vs SNF pending recommendation from PT. Case Management to follow. Date Signed: 10/19/2017 11:59 AM Electronically Signed By:Isaura Gardiner RN [facility] CM Progress Note CM Note CM Note Notes: Pts case discussed in morning rounds. MDs are recommending SNF. Pt is agreeable. CM compelted ULTC-100. Pt is agreeable to 30 days stay. CM spent 30 mins w/ pt providing emotional support. Referrals made to the [facility] per request of pt. CM to follow. Plan: SNF Date Signed: 10/20/2017 04:58 PM Electronically Signed By:JOHN Wen [facility] CM Progress Note CM Note CM Note Notes: Pts case discussed in morning rounds. Additional SNF referrals made. All the SNFs in [place] has denied pt. CM contacted [facility] to start the LTC application. CM to follow. Plan: [facility] Date Signed: 10/21/2017 01:48 PM Electronically Signed By:JOHN Wen [facility] MIKEY Progress Note CM Note MIKEY Note Notes: Praful met w/ pt to complete [facility] paperwork. Pt is interested in having outpatient palliative. MIKEY sent a referral to [facility]. MIKEY to follow. Date Signed: 10/21/2017 01:49 PM Electronically Signed By:JOHN Wen [facility] MIKEY Progress Note CM Note CM Note Notes: Pts case discussed in morning rounds. MIKEY met w/ pt for dispo planning. CM informed pt that the [place] facilities have turned him down. Pt is agreeable to going to a [facility]. MIKEY spoke to Bernardino at [facility]. Bernardino reports that a liaison will have to come and do an on site for approval. CM to follow. Plan: [facility] Date Signed: 10/22/2017 03:52 PM Electronically Signed By:JOHN Wen [facility] CM Progress Note CM Note CM Note Notes: OT ordered; awaiting eval. Updates faxed to [facility]. Liason from [facility] to come to hospital to meet with pt. [facility] to visit pt as well. YULIANA & updated. CM will continue to follow. Dc poc-SNF Date Signed: 10/24/2017 04:04 PM Electronically Signed By:Danica Rodriguez RN [facility] CM Progress Note CM Note CM Note Notes: 10/25/2017 Case Management Note Faxed Infectious disease note and PASRR to [facility] rep [place]. Pt approved for ULTC [address] [facility]. Awaiting acceptance by SNF facility. Case Management to follow. Date Signed: 10/25/2017 05:00 PM Electronically Signed By:Isaura Gardiner RN [facility] CM Progress Note CM Note CM Note Notes: 10/26/2017 Case Management Note Discussed pt during rounds this morning. Of note, RN reported pt had a fever of 100 this morning. Faxed referral to [facility] to visit pt in the morning on Wednesday. Left VM for Osiris Jhaveri [facility] intake nonfarm animal caretaker at [phone]. Anticipating report from Osiris to be completed by end of day tomorrow. Contacted Bernardino, wellness coordinator, of [facility] and [facility]. Both are [facility] facilities. Isa to visit pt to assess late today or tomorrow. Attempted to call [facility] at [phone] but was unable to leave a VM. Case Management d/c poc: to be determined, awaiting acceptance by a facility. Case Management to follow. Date Signed: 10/26/2017 04:31 PM Electronically Signed By:Isaura Gardiner RN [facility] MIKEY Progress Note CM Note MIKEY Note Notes: Pts case discussed in morning rounds. MIKEY spoke to CHLOE Car regarding d/c POC. MIKEY spoke to Isa at [facility] and she will have Bernardino at [facility] call Niles, pts partner. Isa informed that [facility] has denied pt at this time. [facility] is interested and will be doing an on site. CM to follow. Plan: SNF Date Signed: 10/27/2017 12:41 PM Electronically Signed By:JOHN Wen [facility] MIKEY Progress Note MIKEY Note MIKEY Note Notes: Pts case discussed during tx rounds. MIKEY spoke to Dr. Kamara and Joceline regarding d/c POC. [facility] has accepted pt. Priti at [facility] has the completed PASRR and will be sending it to [facility]. Pt is not medically stable to d/c today due to severe abdominal pain. A liaison from [facility] stopped by today for a palliative informational. CM to follow. Plan: [facility] Date Signed: 10/28/2017 01:45 PM Electronically Signed By:JOHN Wen [facility] MIKEY Progress Note CM Note CM Note Notes: Pts case discussed in tx rounds. Pt is getting a PICC line today. Pt is starting a new medication routine. Pt will most likely need to be here for another week according to Dr. Kamara. CM notified [facility] of this. CM to follow. Plan: [facility] Date Signed: 10/29/2017 01:38 PM Electronically Signed By:JOHN Wen [facility] MIKEY Progress Note CM Note CM Note Notes: Pt feeling much better today, discussed in rounds and pt may be ready for dc a bit earlier than thought, possibly early next week as opposed to end of week. Spoke w/YULIANA Lin, at [facility] and gave her this info; she will let admissions know tomorrow. Updates sent to [facility]. Pt was current with [facility] prior to admit and would like to resume care w/them after rehab stay so CM will need to let [facility] know about [facility].CM will follow. Date Signed: 10/30/2017 06:19 PM Electronically Signed By:Jenn Garcia RN [facility] CM Progress Note CM Note CM Note Notes: 10/31/2017 Case Management Note Discussed pt during rounds this morning. Pt expresses a significant improvement in his condition and states he no longer feels SNF rehab is necessary. Previous d/c plan was [facility] SNF rehab with [facility] ([phone]). Pt is current with [facility]. Case Management d/c poc: to be determined. SNF rehab vs home with home care. [facility] to follow pt either way. Case Management to contact [facility] correctional case manager Osiris Jhaveri [phone] with d/c plan. Pt has been approved for 30 day SNF stay by [facility]. Case Management to follow. Date Signed: 10/31/2017 02:24 PM Electronically Signed By:Isaura Gardiner RN [facility] CM Progress Note CM Note CM Note Notes: Pts case discussed in tx rounds. Dr. Whitehead and Dr. Kamara spoke this AM. Pt no longer needs a SNF. Pt has been observed ambulating safetly around the unit. Pt will most likely stay at [facility] until the end of this week. CM notified Osiris Jhaveri [phone] of the new d/c plan. CM updated [facility] and [facility]. CM to follow. Plan: Home w/ [facility] w/ [facility] Date Signed: 11/01/2017 12:28 PM Electronically Signed By:JOHN Wen [facility] CM Progress Note CM Note CM Note Notes: 11/03/2017 Case Management Note Met w/pt during rounds this morning. [facility]. Anticipating d/c in the next few days. Case Management d/c poc: resuming [facility] with the addition of [facility] Palliative Team. Case Management to follow. Date Signed: 11/03/2017 12:31 PM Electronically Signed By:Isaura Gardiner RN Case Management Discharge Plan Note Case Management Discharge Discharge Order Complete? Answers: Yes Patient to Obtain Answers: via Family Medications Transportation Arranged Answers: Family/Friends Faxed Final Orders Answers: Yes Agency/Facility Transfer Answers: Yes Report Printed & Faxed to Receiving Agency Family Notified Answers: Yes Notes: in room Discharge Comments Notes: 11/04/2017 Case Management Note Pt discharged home with partner. Faxed final orders to [facility] and [facility]. Date Signed: 11/04/2017 12:21 PM Electronically Signed By:Isaura Gardiner RN Intervention Information
--- NOTE | 2017-11-04 14:24 | GDS ---
[f rep st] DISCHARGE SUMMARY DIAGNOSES: 1. Acquired immunodeficiency syndrome/human immunodeficiency virus. 2. Leukopenia. 3. 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 5. IRIS. 6. Oral candidiasis. 7. Hypotension. 8. Lactic acidosis. 9. Hyponatremia. 10. Anemia. 11. Severe protein calorie malnutrition, with cachexia. 12. Chronic pain, on continuous narcotics. 13. Debility, much improved. HOSPITAL COURSE: This is a 56-year-old man, with recently diagnosed AIDS. He had [facility] for CMV ileitis. He was readmitted with ongoing malaise and fevers. Biopsy of lymph node confi rmed disseminated MAC. He has been treated for that as well, with ethambutol, azithromycin, and rifa butin. He had significant leukopenia, on multiple bone suppressive medications. His Valcyte dose wa s decreased. His Bactrim DS was changed to Wednesday, Wednesday, Wednesday. His leukopenia has resolved o n the day of discharge. His white count is 4.96, absolute neutrophils are 4520. This was likely due to the multiple bone marrow suppressive medications that he was on. FOLLOWUP: 1. Will follow up with Joceline Turpin on Wednesday, 4 days after discharge. He will have followup lab s drawn at that point. 2. He will also follow up with Marley Kamara. BILLING: I spent more than 30 minutes on the day of discharge coordinating care. /[id number]/MODL
== END 2017-11-04 12:12 | disposition home or self-care (01) | DRG 892 ==
LOC: F2W 10-19 00:28 → OBSVTOIN 10-19 12:12
PROVIDERS: ADMIT Family Medicine; ATTEND Family Medicine
PROC: 02HV33Z Insertion of Infusion Device into Superior Vena Cava, Percutaneous Approach (ICD-10-PCS; 2017-10-19)
PROC: 07BB3ZX Excision of Mesenteric Lymphatic, Percutaneous Approach, Diagnostic (ICD-10-PCS; 2017-10-20)
PROC: 30233N1 Transfusion of Nonautologous Red Blood Cells into Peripheral Vein, Percutaneous Approach (ICD-10-PCS; 2017-10-22)
PROC: 02HV33Z Insertion of Infusion Device into Superior Vena Cava, Percutaneous Approach (ICD-10-PCS; principal; 2017-10-29)
DX: B20 Human immunodeficiency virus [HIV] disease (principal); E43 Unspecified severe protein-calorie malnutrition; B37.0 Candidal stomatitis; A31.0 Pulmonary mycobacterial infection; A08.39 Other viral enteritis; E87.2 Acidosis; D63.8 Anemia in other chronic diseases classified elsewhere; G89.29 Other chronic pain; K59.00 Constipation, unspecified; K21.9 Gastro-esophageal reflux disease without esophagitis; R62.7 Adult failure to thrive; E87.1 Hypo-osmolality and hyponatremia; R19.7 Diarrhea, unspecified; Z68.1 Body mass index [BMI] 19.9 or less, adult; E86.0 Dehydration; F11.20 Opioid dependence, uncomplicated
CPT/HCPCS: 86359-90; 86360-90; 86635-90; 87385-90; 87536-90; 88184-90; 88185-91; 96365; 97112-GP; 97116-GP; 97162-GP; 97165-GO; 97530-GO; 97530-GP; 97535-GO; C1751; J0692; J0834; J1170; J1650; J2212; J2250; J2405; J2543; J2997; J3010; J3370; J7512; P9016; P9047; Q9967